=== PATIENT | female | born 1955 | race African-American/Black ===

== ENCOUNTER 2018-12-15 17:56 | Emergency (ER) | payer MEDICARE, SELFPAY ==
[2018-12-15] VITALS (9 sets, daily range): BP systolic 130–208; BP diastolic 66–113; PULSE 54–71; RESP 16–22; TEMP 36.9; O2SAT 94–99; BMI 39.4
--- NOTE | 2018-12-15 18:25 | RAD_ITS ---
STUDY: X-RAY CHEST REASON FOR EXAM: Female, 63 years old. Chest pain TECHNIQUE: Frontal view of the chest COMPARISON: X-Ray Chest June 02, 2016 FINDINGS: The lungs are clear. There are no pleural effusions. There is no pneumothorax. The heart is enlarged. The visualized osseous structures are within normal limits. RAD/Chest 1 View (Portable) IMPRESSION: No acute thoracic pathology. Cardiomegaly. Electronically Signed: Morgan Mark, at 19:00 EDT Tel , Service support ,
--- NOTE | 2018-12-15 18:25 | EKG12_ITS ---
Test Reason : CP Blood Pressure : / mmHG Vent. Rate : 060 BPM Atrial Rate : 060 BPM P-R Int : 188 ms QRS Dur : 088 ms QT Int : 426 ms P-R-T Axes : 052 -06 017 degrees QTc Int : 426 ms Normal sinus rhythm Normal ECG Confirmed by NOLAN HOGAN ([id number]), photograph editor NATANAEL PUGA ([id number]) on 12/23/2018 8:56:32 AM Referred By: PAPITO Confirmed By:NOLAN HOGAN
[2018-12-15] MEDS: Aspirin 81 MG TAB.CHEW 324 MG PO (18:31)
[2018-12-15] MEDS: Nitroglycerin SL (ED/IMG/CATH) 0.4 MG TABLET SUBLINGUAL ×3 (18:33→18:46)
[2018-12-15 18:34] LABS: Absolute Lymphocyte Count 2.72 X10^3/ul (0.83-4.51); Absolute Neutrophil Count 3.5 X10^3/uL (2.0-7.7); Basophil# 0.01 X10^3/uL; Basophil% 0.1 % (0-1); Eosinophil# 0.25 X10^3/uL; Eosinophils% 3.5 % (0-5); Hematocrit 39.1 % (37-47); Hemoglobin 13.4 g/dl (12.0-15.0); Lymphocyte # 2.72 X10^3/ul (4.0); Lymphocyte % 37.9 % (19-41); Mean Corp Hgb Conc 34.3 g/gl (32-36); Mean Corpuscular Hgb 32.3 pg (27.0-32.0); Mean Corpuscular Volume 94.2 fL (81-99); Mean Platelet Vol. 11.4 fl (6.2-12.0); Monocyte# 0.72 X10^3/uL; Neutrophil # 3.46 X10^3/uL (2.7-7.7); Neutrophil % 48.4 % (47-70); Platelet Count 171 K/mm3 (150-450); RBC Distribution Width CV 12.4 % (11.6-14.6); RBC Distribution Width SD 41.9 fl (35.1-43.9); Red Blood Count 4.15 M/mm3 (4.2-5.4); White Blood Count 7.2 K/mm3 (4.4-11.0)
--- NOTE | 2018-12-15 18:35 | ED.VISSUMM ---
- ER Visit Summary Date of Service: 12/15/18 Chief Complaint: Chest pain History of Present Illness: The patient is a 63 F who presents with chest pain that has been intermittent over the past week. Patient states her pain began this morning with light activity. Patient describes the pain as sharp and aching. Patient states the pain is over the substernal area. Patient admits to some shortness of breath with walking. Patient admits to some lightheadedness. Patient denies any nausea or vomiting. Patient denies any diaphoresis. Patient denies any palpitations. Patient has a family history of early coronary artery disease. Patient has a history of hypertension. Patient denies any other cardiac or PE risk factors. Physical Examination: Vital signs are stable except for an elevated blood pressure of 208/113. Patient is afebrile. Patient is in no acute distress. Oral mucosa is pink and moist. Neck is supple. Trachea is midline. There is no JVD noted. Heart was regular rate and rhythm. Lungs are clear and equal bilateral. Abdomen is soft. Bowel sounds are normal. There is no tenderness. There is no guarding noted. Skin is warm dry. Cranial nerves II through XII are intact. There are no focal motor or sensory deficits noted. The remaining physical exam is within normal limits. Test Results: EKG showed normal sinus rhythm with a rate of 60. There are no acute ST or T wave changes noted. CBC was normal. Basic metabolic profile showed a slightly elevated creatinine of 1.23. This was consistent with prior results. Troponin was normal. Chest x-ray does not show any acute cardiopulmonary process. D-dimer was obtained and was 1.15. CTA of the chest was obtained there is no evidence of pulmonary embolism. Emergency Department Course and Treatment: Patient was given aspirin and sublingual nitroglycerin here. Patient's blood pressure improved to 147/66. Patient is PERC negative. Patient has a HEART score of 3. Patient was advised that this is low risk for acute cardiac event. Patient was instructed to follow-up with her primary care physician in 5 to 7 days. Patient was instructed to keep a log of her blood pressures to give to her doctor when she follows up. Patient understood and was agreeable with the plan. All questions were answered. Disposition: Discharge home Impression: Chest pain This note was generated with [id number] dictation software. It may contain incorrect words, spelling, and punctuation that were not noted in review of the chart prior to signing ED Disposition - Plan for ED Patient: Disposition: Home or Assisted Living Diagnosis: Chest pain Instructions: ED Chest Pain Atypical Unkn Cause Referrals: Deyvi Olvera DO [Primary Care Provider] - 3-5 Days
--- NOTE | 2018-12-15 18:38 | ED.DCSUM_ITS ---
- ER Visit Summary Date of Service: 12/15/18 Chief Complaint: Chest pain History of Present Illness: The patient is a 63 F who presents with chest pain that has been intermittent over the past week. Patient states her pain began this morning with light activity. Patient describes the pain as sharp and ach ing. Patient states the pain is over the substernal area. Patient admits to some shortness of breath with walking. Patient admits to some lightheadedness. Patient denies any nausea or vomiting. Patient denies any diaphoresis. Patient denies any palpitations. Patient has a family history of early coronary artery disease. Patient has a history of hypertension. Patient denies any other cardi ac or PE risk factors. Physical Examination: Vital signs are stable except for an elevated blood pressure of 208/113. Patient is afebrile. Patient is in no acute distress. Oral mucosa is pink and moist. Neck is supple. Trachea is midline. There is no JVD noted. Heart was regular rate and rhythm. Lungs are clear and equal bilateral. Abdomen is soft. Bowel sounds are normal. There is no tenderness. There is no guarding noted. Skin is warm dry. Cranial nerves II through XII are intact. There are no focal motor or sensory deficits noted. The remaining physical exam is within normal limits. Test Results: EKG showed normal sinus rhythm with a rate of 60. There are no acute ST or T wave changes noted. CBC was normal. Basic metabolic profile showed a slightly elevated creatinine of 1.23. This was consistent with prior results. Troponin was normal. Chest x-ray does not show any acute cardiopulmonary process. D-dimer was obtained and was 1.15. CTA of the chest was obtained there is no evidence of pulmonary embolism. Emergency Department Course and Treatment: Patient was given aspirin and sublingual nitroglycerin here. Patient's blood pressure improved to 147/66. Patient is PERC negative. Patient has a HEART score of 3. Patient was advised that this is low risk for acute cardiac event. Patient was instructed to follow-up with her primary care physician in 5 to 7 days. Patient was instructed to keep a log of her blood pressures to give to her doctor when she follows up. Patient understood and was agreeable with the plan. All questions were answered. Disposition: Discharge home Impression: Chest pain This note was generated with [employer] dictation software. It may contain incorrect words, spelling, and punctuation that were not noted in review of the chart prior to signing ED Disposition - Plan for ED Patient: Disposition: Home or Assisted Living Diagnosis: Chest pain Instructions: ED Chest Pain Atypical Unkn Cause Referrals: Deyvi Olvera DO [Primary Care Provider] - 3-5 Days
[2018-12-15 18:47] LABS: Anion Gap 5 (5-15); BUN 22 mg/dL (7-18); BUN/Creat Ratio 17.9 RATIO (10-20); Calcium,Total 9.4 mg/dL (8.5-10.1); Chloride 106 mmol/L (98-107); Creatinine, Serum 1.23 mg/dL (0.55-1.02); EST Glomerular Filtration Rate 47 mL/min (>60); Est Glom Filt Rate - Afr Amer 57 mL/min (>60); Estimated Creatinine Clearance 51.94 ml/min; Glucose 106 mg/dL (74-106); Potassium 3.9 mmol/L (3.5-5.1); Sodium Level 139 mmol/L (136-145)
[2018-12-15 18:48] LABS: POSITIVE COUNT NO; POSITIVE DIFFERENTIAL NO; POSITIVE MORPHOLOGY NO
[2018-12-15 21:39] LABS: D-Dimer Quantitative (DVT/PE) 1.15 FEU/ug/m (0.27-0.49)
--- NOTE | 2018-12-15 21:39 | CT_ITS ---
STUDY: CTA CHEST REASON FOR EXAM: Female, 63 years old. Substernal chest pain intermittently for one week. Elevated blood pressure. Elevated d-dimer. RADIATION DOSAGE (If Supplied By Facility): CTDIvol = ( 13.85 ) mGy, DLP = ( 562.41 ) mGycm TECHNIQUE: The examination was performed with the intravenous administration of 100ML IV Isovue 370. Post-processing of the angiographic images was performed, with multiplanar reformation and 3D reconstruction. Individualized dose optimization techniques were used for this CT. COMPARISON: Chest, December 15, 2018. CTA of the chest, June 02, 2016. FINDINGS: Normal enhancement of the main pulmonary artery and right and left pulmonary arteries. Normal enhancement of the bilateral peripheral pulmonary arteries. There is no demonstrated pulmonary embolism. Normal thoracic aorta and visualized great vessels. There is no demonstrated aortic dissection. The heart is borderline enlarged. Normal pericardium. Normal mediastinum. Normal hilar regions. Normal visualized trachea and bronchi. The lungs are well expanded. Normal pulmonary parenchyma. Normal pleura. Normal chest wall structures. There are minimal degenerative changes of the lower thoracic and upper lumbar spine. There is a cyst in the upper pole left kidney. Patient is status post cholecystectomy. CT/CTA Chest W/WO Contrast IMPRESSION: 1. No evidence of pulmonary embolus. 2. No aortic dissection or aneurysm. 3. Borderline cardiomegaly. 4. No acute pulmonary disease. Electronically Signed: Ed Jeffers DO at 22:22 EDT Tel [phone], Service support ,
--- NOTE | 2018-12-15 21:39 | ED.RN ---
DR ROJSA NOTIFIED OF DDIMER RESULTS
[2018-12-15] MEDS: 0.9% Normal Saline 1,000 ML 1000 ML IV (22:32)
== END 2018-12-15 23:13 | disposition home or self-care (01) ==
PROVIDERS: Emergency Provider Emergency Medicine; Family Provider Student in an Organized Health Care Education/Training Program; PCP Student in an Organized Health Care Education/Training Program
DX: R07.9 Chest pain, unspecified (principal); E66.9 Obesity, unspecified; I10 Essential (primary) hypertension; Z82.49 Family history of ischemic heart disease and other diseases of the circulatory system; R05 Cough; M54.2 Cervicalgia; M54.9 Dorsalgia, unspecified; M79.89 Other specified soft tissue disorders; R06.02 Shortness of breath; G89.29 Other chronic pain
CPT/HCPCS: 71045; 71275; 80048; 84484; 85025; 85379; 93005; 96360; 99285; J7030; Q9967; A4216

== ENCOUNTER → 2019-04-29 10:42 | Outpatient (CLI) | payer MEDICARE, SELFPAY ==
[2018-12-15 17:57] VITALS: BMI 39.4
[2019-05-01 20:07] LABS: HCV Quant. RNA PCR HCV Not Detected IU/mL (.)
== END ==
PROVIDERS: Family Provider Student in an Organized Health Care Education/Training Program; PCP Student in an Organized Health Care Education/Training Program; Referring Provider Internal Medicine Gastroenterology; Visit Provider Internal Medicine Gastroenterology
DX: B19.20 Unspecified viral hepatitis C without hepatic coma (principal)
CPT/HCPCS: 36415; 87522

== ENCOUNTER 2020-01-09 07:42 | Observation (INO) | payer MEDICARE, SELFPAY ==
[2018-12-15 17:57] VITALS: BMI 39.4
[2020-01-09] VITALS (15 sets, daily range): BP systolic 157–228; BP diastolic 90–138; PULSE 47–91; RESP 13–18; TEMP 36.6–37.2; O2SAT 97–98; BMI 38.6; BMI 38.2
--- NOTE | 2020-01-09 07:43 | EKG12_ITS ---
Test Reason : CP Blood Pressure : / mmHG Vent. Rate : 085 BPM Atrial Rate : 085 BPM P-R Int : 182 ms QRS Dur : 094 ms QT Int : 384 ms P-R-T Axes : 043 000 016 degrees QTc Int : 456 ms Normal sinus rhythm Normal ECG Confirmed by DARIO ROSARIO, FARAZ ([id number]), editor school photograph CLAUDIA OSBORN ([id number]) on 01/10/2020 11:15:17 AM Referred By: LIONEL Confirmed By:FARAZ BISHOP MD
--- NOTE | 2020-01-09 07:43 | RAD_ITS ---
STUDY: X-RAY CHEST REASON FOR EXAM: Female, 64 years old. Chest pain TECHNIQUE: Single AP portable view of the chest. COMPARISON: Comparison is made with prior study dated December 15, 2018. FINDINGS: EKG electrodes are seen. The lungs are clear and expanded. There is no demonstrated pleural abnormality. There is mild cardiac enlargement. Normal mediastinum and herb. Normal visualized pulmonary arteries. There is atherosclerotic tortuosity of the aortic arch and descending thoracic aorta. Normal visualized thoracic spine. Normal visualized ribs, clavicles, and shoulders. There is no demonstrated abnormality of the visualized soft tissue structures of the upper abdomen. RAD/Chest 1 View (Portable) IMPRESSION: Mild cardiomegaly. Electronically Signed: Adama Zazueta, at 8:49 EDT , Service support ,
--- NOTE | 2020-01-09 07:44 | ED.VIS.GEN ---
History of Present Illness Chief Complaint: Chest Pain Informant: Patient Onset: Today Context: Sudden Onset Timing: Continuous Current Severity: Moderate Maximum Severity: Severe Narrative: The patient is a 64-year-old female with medical history significant for hypertension, fibromyalgia, and back pain that presents to the emergency department chest pain. Patient states that about 3 or 4 this morning, she was woken from sleep. She states that she had rather significant substernal heaviness and some pain in her left arm. She denies being short of breath but was mildly nauseated. Patient has no history of coronary vascular disease. She states that she has had a stress test about 4 years ago. She denies any fevers or chills. She denies any she states she is otherwise been in her normal state of health. She does not smoke. Prior similar symptoms: No Recent Illness/Hospitalization: No Past Medical History - Allergies and Home Meds Allergies/Adverse Reactions: Allergies No Known Allergies Allergy (Verified 12/15/18 18:00) Primary Care Physician: Deyvi Olvera DO [Primary Care Provider] - Prior records reviewed: Yes Past Medical History: - - Hypertension, fibromyalgia Surgical History: total knee arthroplasty Lives: With Family Smoking Status: Never smoker - Family History Maternal Family History: Reports: No pertinent history Paternal Family History: Reports: - - Her father had colon cancer and melanoma. Review of Systems General: Denies: Chills, Fever, Sweats Eyes: Denies: Visual changes - bilaterally, Diplopia ENT: Denies: Rhinorrhea, Sore throat Cardiovascular: Reports: Chest pain. Denies: Palpitations Respiratory: Reports: Dyspnea. Denies: Cough, Dyspnea on exertion Gastrointestinal: Denies: Abdominal pain, Nausea, Vomiting, Diarrhea, Melena, Hematochezia Genitourinary: Denies: Dysuria, Hematuria, Frequency Musculoskeletal: Denies: Back pain, Extremity Pain Skin: Denies: Rash, Wounds Neurological: Denies: Headache, Weakness, Numbness Physical Exam Inital Vital Signs reviewed: Yes General: Well nourished, Well developed, No Acute Distress Head: Normocephalic, Atraumatic Eyes: Perrl, EOMI ENT: Moist mucous membranes, No rhinorrhea Neck: Supple, Nontender Cardiovascular: Regular rate, Regular rhythm, No murmurs Respiratory: No distress, CTA bilaterally, Chest nontender Abdomen: Soft, Nontender, Nondistended, Normal bowel sounds Back: Nontender, Normal Inspection Extremities: Nontender, No edema Skin: Normal color, No rash Neurological: Alert, Oriented x3, Cranial nerves II-XII grossly intact, Normal Strength, Normal Sensation Psychological: Normal affect, Normal Mood Diagnostic/Tx/Re-eval Chest X-Ray - ED: 1 View, Cardiomegaly, No Infiltrates Abnormal Lab Results 01/09/20 01/09/20 01/09/20 07:50 07:50 07:50 WBC 6.0 RBC 4.26 Hgb 13.4 Hct 39.8 MCV 93.4 MCH 31.5 MCHC 33.7 RDW Std Deviation 45.0 H RDW Coeff of Moon 13.2 Plt Count 178 MPV 10.2 Immature Gran % (Auto) 0.200 Neut % (Auto) 57.9 Lymph % (Auto) 32.3 Ramsey % (Auto) 7.3 Eos % (Auto) 2.0 Baso % (Auto) 0.3 Absolute Neuts (auto) 3.5 Absolute Lymphs (auto) 1.94 Nucleated RBC % 0 Sodium 139 Potassium 3.6 Chloride 105 Carbon Dioxide 29.0 Anion Gap 5 BUN 16 Creatinine 0.98 Estim Creat Clear Calc 64.36 Est GFR (MDRD) Af Amer 74 Est GFR (MDRD) Non-Af 61 BUN/Creatinine Ratio 16.3 Glucose 117 H Calcium 9.6 Troponin I < 0.015 B-Natriuretic Peptide 55.2 - Rhythm Strip Rhythm Strip: Sinus Rhythm Rate: 90 Ectopy: None - EKG Initial EKG Interpretation: Sinus Rhythm, No Acute Injury Pattern Prior: Unchanged - Medical Decision Making The patient presents to the emergency department with chest pain that came on at rest. She describes it as squeezing into her neck and arm. She also describes being short of breath sometimes when the pain comes on. The patient was markedly hypertensive on arrival with blood pressure of 230. EKG however did not show any acute ischemic change. Patient was given sublingual nitro with some improvement of her pain, but better control of her blood pressure. Screening labs including cardiac enzymes were unremarkable. The patient did have enlarged cardiac silhouette on her chest x-ray. CTA of the chest was obtained to evaluate for acute aortic pathology. There is mild aneurysmal dilatation of 4.2 cm, but less than the surgical threshold and no evidence of dissection. The patient will be admitted at this time. Impression 1. Chest pain 2. Accelerated hypertension ED Disposition - Plan for ED Patient: Referrals: Deyvi Olvera DO [Primary Care Provider] -
[2020-01-09 07:58] LABS: Absolute Lymphocyte Count 1.94 X10^3/uL (0.83-4.51); Absolute Neutrophil Count 3.5 X10^3/uL (2.0-7.7); Basophil# 0.02 X10^3/uL; Basophil% 0.3 % (0-1); Eosinophil# 0.12 X10^3/uL; Hematocrit 39.8 % (37-47); Hemoglobin 13.4 g/dL (12.0-15.0); Lymphocyte # 1.94 X10^3/ul (4.0); Lymphocyte % 32.3 % (19-41); Mean Corp Hgb Conc 33.7 g/dL (32-36); Mean Corpuscular Hgb 31.5 pg (27.0-32.0); Mean Corpuscular Volume 93.4 fL (81-99); Mean Platelet Vol. 10.2 fl (6.2-12.0); Monocyte# 0.44 X10^3/uL; Monocyte% 7.3 % (0-10); NRBC Flagged by Analyzer 0 % (0-5); Neutrophil # 3.47 X10^3/uL (2.7-7.7); Neutrophil % 57.9 % (47-70); Platelet Count 178 K/mm3 (150-450); RBC Distribution Width CV 13.2 % (11.6-14.6); Red Blood Count 4.26 M/mm3 (4.2-5.4)
[2020-01-09] MEDS: Aspirin 81 MG TAB.CHEW 324 MG PO (07:58)
[2020-01-09] MEDS: Ondansetron 4 MG/2 ML Vial IV (07:59)
[2020-01-09] MEDS: Nitroglycerin SL (ED/IMG/CATH) 0.4 MG TABLET SUBLINGUAL ×3 (08:00→08:29)
[2020-01-09 08:18] LABS: Anion Gap 5 (5-15); BUN 16 mg/dL (7-18); BUN/Creat Ratio 16.3 RATIO (10-20); Calcium,Total 9.6 mg/dL (8.5-10.1); Chloride 105 mmol/L (98-107); Creatinine, Serum 0.98 mg/dL (0.55-1.02); EST Glomerular Filtration Rate 61 mL/min (>60); Est Glom Filt Rate - Afr Amer 74 mL/min (>60); Estimated Creatinine Clearance 64.36 ml/min; Glucose 117 mg/dL (74-106); Potassium 3.6 mmol/L (3.5-5.1); Sodium Level 139 mmol/L (136-145)
[2020-01-09] MEDS: Morphine 4 MG/ML Syringe IV (08:27)
--- NOTE | 2020-01-09 08:36 | CT_ITS ---
STUDY: CTA CHEST REASON FOR EXAM: Female, 64 years old. DISSECTION, CP, HX-GERD, HTN, SLEEP APNEA, PREV HEART CATH, HYSTER, JITENDRA, LB RADIATION DOSAGE (If Supplied By Facility): CTDIvol = ( 18.83 ) mGy, DLP = ( 836 ) mGycm TECHNIQUE: The examination was performed with the intravenous administration of IV 100mL Isovue-370. Post-processing of the angiographic images was performed, with multiplanar reformation and 3D reconstruction. Individualized dose optimization techniques were used for this CT. COMPARISON: Comparison is made with prior examination dated December 15, 2018. FINDINGS: Normal enhancement of the main pulmonary artery and right and left pulmonary arteries. Normal enhancement of the bilateral peripheral pulmonary arteries. There is no demonstrated pulmonary embolism. There is aneurysmal dilatation of the ascending aorta. The transverse diameter of the ascending aorta measures 42.4 mm''s. There is no demonstrated aortic dissection. There are calcifications of the coronary arteries. Normal mediastinum. Normal hilar regions. Normal visualized trachea and bronchi. The lungs are well expanded. Normal pulmonary parenchyma. Normal pleura. Normal chest wall structures. Normal osseous structures. Status post cholecystectomy. Stable 2.7 cm cyst in the lateral midportion of the left kidney. CT/CTA Chest W/WO Contrast IMPRESSION: No evidence of pulmonary embolism. Dilatation of the ascending thoracic aorta with a transverse dimension of 42.4 mm. Electronically Signed: Adama Zazueta, at 9:27 EDT , Service support ,
[2020-01-09 08:38] LABS: BNP,B-Type NATRIURETIC PEPTIDE 55.2 pg/mL (0-100)
--- NOTE | 2020-01-09 09:32 | HP.PCM_ITS ---
Problem List (1) Chest pain Status: Acute Qualifiers: Chest pain type: unspecified Qualified Code(s): R07.9 - Chest pain, unspecified (2) Accelerated hypertension Status: Acute (3) GERD (gastroesophageal reflux disease) Status: Chronic Qualifiers: Esophagitis presence: esophagitis presence not specified Qualified Code(s): K21.9 - Gastro-esophageal reflux disease without esophagitis (4) Fibromyalgia Status: Chronic (5) Obesity Status: Chronic Qualifiers: Obesity type: due to excess calories Obesity classification: adult class 2 (BMI 35 - 39.9) Serious obesity comorbidity presence: unspecified whether serious comorbidity present Body mass index: BMI 38.0-38.9 Qualified Code(s): E66.09 - Other obesity due to excess calories; Z68.38 - Body mass index (BMI) 38.0-38.9, adult History of Present Illness Date of Admission: 01/09/20 Chief Complaint: Chest pain The patient is a 64 y/o F w/ PMHx: HTN noted to be difficult to treat, Obesity, Obesity, Chronic pain syndrome secondary to DDD who presents to the [facility] ED on 01/09/20 with history of awakening approximately 3:30 AM on day of ED presentation with left-sided chest heaviness and tightness with radiation into the left upper extremity with associated dyspnea but no nausea, emesis or diaphoresis rated at its worst 7 out of 10 in severity with improvement following recent nitroglycerin in the ED to 5 out of 10 in severity. Patient also notes some mid sternal discomfort primarily with deep inspiratory effort. In the ED work-up included a 98.9, heart rate 91, BP initially 228/131, respiratory rate 18, 98% on room air with improvement to 171/94 following nitroglycerin administration, remarkable CBC, BMP with glucose 117 otherwise unremarkable, troponin less than 0.015, BNP 155.2, EKG with sinus rhythm with no acute evidence of ischemia, chest x-ray with mild cardiomegaly, follow-up CTPA with no evidence of pulmonary embolism, dilatation noted of the ascending thoracic aorta with transverse dimension of 42.4 mm. The ED patient administered aspirin 324 mg p.o. x1, morphine 4 mg IV x1, Zofran, sublingual nitroglycerin. Past Medical History Past Medical History (Chronic Problems): Chronic Problems GERD (gastroesophageal reflux disease) (Chronic) Fibromyalgia (Chronic) Osteoarthritis of knees, bilateral (Chronic) Angio-edema (Chronic) Obesity (Chronic) HTN (hypertension) (Chronic) Allergies No Known Allergies Allergy (Verified 12/15/18 18:00) Home Medications: Ambulatory Orders Medication Instructions Recorded Aspirin E.C. [Ecotrin] 81 mg PO DAILY@0800 #30 tablet 07/09/13 Hydrochlorothiazide [Hctz] 25 mg PO DAILY 09/10/14 Metoprolol Tartrate [Lopressor 25 mg PO DAILY 10/12/15 (beta ilda)] Losartan Potassium [Cozaar] 100 mg PO DAILY 06/02/16 Cholecalciferol (VIT D3) [Vitamin 1,000 unit PO DAILY 12/15/18 D] Oxycodone HCl/Acetaminophen 1 tab PO BID 01/09/20 [Oxycodon-Acetaminophen 7.5-325] Pregabalin 25 mg PO BID 01/09/20 hydrALAZINE [Apresoline] 50 mg PO BID 01/09/20 Surgical History: total knee arthroplasty, - - Bilateral total knee replacement, cervical neck surgery, lumbar back surgery, cholecystectomy, hysterectomy. 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 Denies: Anorexia, Chills, Fever, Malaise, Weakness, Weight Change HEENT: Denies: Head Aches, Sinus Congestion, Sinus Drainage Cardiovascular: Reports: Chest Pain, Chest Pressure, Chest Tightness, Heaviness. Denies: Light Headedness, Orthopnea, Palpitations, Syncope Respiratory: Reports: Pleuritic Pain, Shortness of breath upon exertion. Denies: Cough, Shortness of Breath, Shortness of breath at rest, Sputum production, Wheezing Gastrointestinal: Denies: Abdominal Pain, Nausea, Vomiting Genitourinary: Denies: Dysuria Musculoskeletal: Reports: Back Pain, Joint Pain. Denies: Joint Tenderness Skin: Denies: Rash, Wounds Neurological: Denies: Numbness, Tingling, Focal weakness Psychiatric: Denies: Anxiety, Depression, Homicidal Ideations, Suicidal Ideations Hematologic/ Lymphatic: Denies: Easy Bruising, Easy Bleeding VTE Information - Inpt Only VTE Present on Admission: No VTE Mechan Device Prophylaxis: SCD's VTE Pharm Prophylaxis ordered?: Yes Patient Problems: Active and Suspected Problems Accelerated hypertension (Acute) Subjective: Seated upright in the PCU bed, mildly fatigued appearance otherwise no acute distress, notes chest discomfort has been improving with ED morphine and nitroglycerin. Objective: Physical Examination: General: awake, alert, oriented x 3 and cooperative, seated upright in the PCU bed in no apparent distress, chest discomfort improving. Skin: normal color, turgor, no icterus, cyanosis. HEENT: AT/NC, EOMI, PERRLA, MMM, no carotid bruits or JVD noted; however, thickened neck makes examination difficult. Lungs: CTA bilaterally, moderate effort, moderate decrease BL bases, no rales, ronchi or wheezing. Heart: Currently mildly bradycardic with regular rhythm; no gallop, rub audible. Abdomen: soft, obese, NTTP, ND, normal BS, no HSM. Extremities: no cyanosis, clubbing, or edema. Neurological: patient awake, alert, oriented x 3; cognitive function intact; pupils equally reactive to light and accomodation; cranial nerves II-XII grossly normal, moving all 4 extremities, no focal deficits, strength moderately global decrease secondary to acute presentation. Psychiatric: affect appears mildly fatigued otherwise normal, no acute evidence of depressive or anxiety feelings. - Physical Exam Vitals/I&O's: Vital Signs Temp Pulse Resp BP Pulse Ox 98.9 F 53 L 13 171/94 H 97 01/09/20 07:43 01/09/20 08:42 01/09/20 08:42 01/09/20 08:42 01/09/20 08:42 Oxygen Delivery Method Room Air Weight: 269 lb 6.478 oz Body Mass Index (BMI) 38.6 Laboratory Results 01/09/20 07:50: WBC 6.0, RBC 4.26, Hgb 13.4, Hct 39.8, MCV 93.4, MCH 31.5, MCHC 33.7, RDW Std Deviation 45.0 H, RDW Coeff of Moon 13.2, Plt Count 178, MPV 10.2, Immature Gran % (Auto) 0.200, Neut % (Auto) 57.9, Lymph % (Auto) 32.3, Bryan % (Auto) 7.3, Eos % (Auto) 2.0, Baso % (Auto) 0.3, Absolute Neuts (auto) 3.5, Absolute Lymphs (auto) 1.94, Nucleated RBC % 0 01/09/20 07:50: Sodium 139, Potassium 3.6, Chloride 105, Carbon Dioxide 29.0, Anion Gap 5, BUN 16, Creatinine 0.98, Estim Creat Clear Calc 64.36, Est GFR (MDRD) Af Amer 74, Est GFR (MDRD) Non-Af 61, BUN/Creatinine Ratio 16.3, Glucose 117 H, Calcium 9.6, Troponin I < 0.015 01/09/20 07:50: B-Natriuretic Peptide 55.2 Assessment/Plan All Active Problems Accelerated hypertension (Acute) Muscle spasm (Acute) Radicular pain in left arm (Acute) Chest pain (Acute) The patient is a 64 y/o F w/ PMHx: HTN noted to be difficult to treat, Obesity, Obesity, Chronic pain syndrome secondary to DDD who presents to the [facility] ED on 01/09/20 with history of awakening approximately 3:30 AM on day of ED presentation with left-sided chest heaviness and tightness with radiation into the left upper extremity. 1. Chest Pain with #2: EKG in ED sinus rhythm with no acute evidence of ischemia, CXR w/ cardiomegaly with initial concern for possible enlarged aorta or therefore follow-up CTPA with no evidence of PE with dilatation of the ascending thoracic order with transverse dimension of 42.4 mm, initial trop normal x1, BMP unremarkable. Will admit to PCU, place on a monitored bed to assure no acute myocardial infarction with serial cardiac enzymes and EKGs. If cardiac enzymes and repeat EKGs remain unremarkable will pursue a.m. cardiac stress testing. Concurrently we will continue to monitor and aggressively treat patient #2, accelerated hypertension likely related. Magnesium pending, FLP in AM. ASA, NG, morphine. 2. Accelerated Hypertension: Significant BP elevations upon presentation with 228/138 with improvement to 171/94 following sublingual nitroglycerin administration with resolution of chest pain concurrently, will resume patient hydrochlorothiazide, losartan, metoprolol, hydralazine with a.m. dosing now, PRN IV hydralazine if needed. Given response may consider Imdur addition but given currently decreased to systolic blood pressure 160 following a.m. dosing of medications will defer immediate addition to avoid lowering her pressure too quickly. 3. Incidentally noted Aneurysmal dilatation of the ascending aorta: CTPA with noted aneurysmal dilatation of the ascending aorta w/ transverse diameter of the ascending aorta measures 42.4 mm, no necessity for urgent evaluation and no evidence of dissection, will refer patient to vascular surgery upon discharge. 4. Chronic pain syndrome secondary to DDD: We will continue patient home chronic narcotic therapy and Lyrica with PRN IV and oral additional regimen as noted secondary to #1. Patient notes upcoming back surgery planned and has already had 2 prior on the cervical and lumbar region. 5. Obesity: Weight loss and lifestyle changes encouraged. 6. GERD: We will maintain on famotidine. 7. DVT prophylaxis: SCDs, Lovenox. OBSV E&M: [id number] Initial observation care L3
--- NOTE | 2020-01-09 09:33 | NURSING ---
DR SANTA FOR DR FLOWERS
--- NOTE | 2020-01-09 09:42 | ED.RN ---
family and pt aware that visitors not permitted to floors as of yet. pt still having same amt of pressure still, like dont feel like can take a full breath
--- NOTE | 2020-01-09 09:42 | NURSING ---
105 CP ARINA OBS
--- NOTE | 2020-01-09 10:03 | EKG12_ITS ---
Test Reason : ADMISSION: CP Blood Pressure : / mmHG Vent. Rate : 047 BPM Atrial Rate : 047 BPM P-R Int : 180 ms QRS Dur : 088 ms QT Int : 468 ms P-R-T Axes : 040 004 007 degrees QTc Int : 414 ms Sinus bradycardia Otherwise normal ECG Confirmed by DARIO ROSARIO, FARAZ ([id number]), editor managing director NATANAEL PUGA ([id number]) on 01/11/2020 1:27:00 PM Referred By: ARINA Confirmed By:FARAZ BISHOP MD
[2020-01-09 11:03] LABS: Hemoglobin A1c 5.6 % (3.8-5.6)
--- NOTE | 2020-01-09 11:27 | CASEMGMT ---
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 Nancy ARNETT MSW
[2020-01-09] MEDS: oxyCODONE 5 MG Tablet PO (11:46)
--- NOTE | 2020-01-09 14:40 | STRESSREP ---
Stress Test Report Pharmacologic myocardial perfusion stress test. 64-year-old lady with a history of accelerated hypertension and chest pain. Stress protocol: Resting EKG demonstrates normal sinus rhythm with a rate of 73 bpm normal intervals are noted. 0.4 mg of regadenoson was infused per usual protocol followed by rapid intravenous saline flush injection continuous electronic device monitor was performed. The maximum heart rate attained was 78 bpm which was 49% of maximum predicted heart rate the maximum workload was 1 metabolic equivalent. At rest there were no ST or T wave changes noted suggest abnormal flow reserve at peak infusion. At peak infusion nonspecific ST-T wave changes were noted with no meet the criteria for ischemia. The resting blood pressure was 140/100 with a peak blood pressure 152/104 suggesting diastolic hypertension. Myocardial perfusion protocol. 15.0 mCi of technetium 99m sestamibi was injected at rest. 0.4 mg of regadenoson was infused per usual protocol. At peak infusion 45.0 mCi of technetium 99m sestamibi was injected stress images were obtained stress and rest images were reconstructed and compared in the short axis vertical long horizontal long axis. Gated images were also obtained Perfusion SPECT analysis: Review of the stress images demonstrate normal uptake of tracer noted in all areas of the myocardium the resting images similar demonstrate normal uptake of tracer noted in all areas of the myocardium. No areas of reversibility are noted suggest ischemia no previous infarct is noted. There is mild apical thinning noted. Gated SPECT analysis: The gated ejection fraction is 61%. Conclusion: Pharmacologic myocardial perfusion stress test with no ischemia noted. Resting Hypertension present.
[2020-01-09] MEDS: Enoxaparin 40 MG/0.4 ML Syringe SC (14:51)
[2020-01-09] MEDS: hydroCHLOROthiazide 25 MG Tablet PO (14:51)
[2020-01-09] MEDS: Famotidine 20 MG Tablet PO ×2 (14:51→21:03)
[2020-01-09] MEDS: hydrALAZINE 50 MG Tablet PO ×2 (14:51→21:03)
[2020-01-09] MEDS: Losartan Potassium 100 MG Tablet PO (14:51)
[2020-01-09] MEDS: Pregabalin 25 MG Capsule PO ×2 (15:11→21:03)
[2020-01-09] MEDS: Morphine 2 MG/ML Syringe IV (18:18)
[2020-01-09] MEDS: 0.9% Saline Lock 10 ML Syringe IV (18:18)
[2020-01-10 02:59] VITALS: PULSE 75
[2020-01-10 05:08] LABS: Absolute Neutrophil Count 3.5 X10^3/uL (2.0-7.7); Basophil# 0.03 X10^3/uL; Basophil% 0.5 % (0-1); Eosinophil# 0.19 X10^3/uL; Eosinophils% 3.1 % (0-5); Hemoglobin 12.1 g/dL (12.0-15.0); Lymphocyte % 29.5 % (19-41); Mean Corp Hgb Conc 32.7 g/dL (32-36); Mean Corpuscular Hgb 31.2 pg (27.0-32.0); Mean Corpuscular Volume 95.4 fL (81-99); Mean Platelet Vol. 10.3 fl (6.2-12.0); Monocyte# 0.57 X10^3/uL; Monocyte% 9.3 % (0-10); NRBC Flagged by Analyzer 0 % (0-5); Neutrophil % 57.3 % (47-70); Platelet Count 164 K/mm3 (150-450); RBC Distribution Width CV 13.3 % (11.6-14.6); RBC Distribution Width SD 46.7 fl (35.1-43.9); Red Blood Count 3.88 M/mm3 (4.2-5.4); White Blood Count 6.1 K/mm3 (4.4-11.0)
[2020-01-10 05:20] VITALS: BP 159/99; PULSE 72; RESP 16; TEMP 36.9; O2SAT 97
[2020-01-10 05:30] LABS: Anion Gap 6 (5-15); BUN 16 mg/dL (7-18); BUN/Creat Ratio 14.8 RATIO (10-20); Calcium,Total 9.1 mg/dL (8.5-10.1); Chloride 101 mmol/L (98-107); Cholesterol 130 mg/dL (200); Creatinine, Serum 1.08 mg/dL (0.55-1.02); EST Glomerular Filtration Rate 55 mL/min (>60); Est Glom Filt Rate - Afr Amer 66 mL/min (>60); Glucose 122 mg/dL (74-106); High Density Lipoprotein 36 mg/dL; Potassium 3.8 mmol/L (3.5-5.1); Sodium Level 137 mmol/L (136-145); Triglycerides 100 mg/dL; Very Low Density Lipoprotein 20 mg/dL (5-40)
[2020-01-10] MEDS: Isosorbide Mononitrate 30 MG Tablet PO (05:45)
--- NOTE | 2020-01-10 05:55 | EKG12_ITS ---
Test Reason : AM EKG Blood Pressure : / mmHG Vent. Rate : 070 BPM Atrial Rate : 070 BPM P-R Int : 190 ms QRS Dur : 090 ms QT Int : 414 ms P-R-T Axes : 055 -05 023 degrees QTc Int : 447 ms Normal sinus rhythm Normal ECG Confirmed by DARIO ROSARIO, FARAZ ([id number]), food expeditor NATANAEL PUGA ([id number]) on 01/11/2020 1:11:39 PM Referred By: DR SANTA Confirmed By:FARAZ BISHOP MD
[2020-01-10 06:59] VITALS: PULSE 60
[2020-01-10 08:50] VITALS: BP 156/86; PULSE 79; RESP 18; TEMP 37; O2SAT 95
[2020-01-10] MEDS: Pregabalin 25 MG Capsule PO (08:50)
[2020-01-10] MEDS: Metoprolol(XL)Succ 100 MG Tablet PO (08:50)
[2020-01-10] MEDS: oxyCODONE 5 MG Tablet PO (08:50)
[2020-01-10 08:51] VITALS: PULSE 79
[2020-01-10] MEDS: Famotidine 20 MG Tablet PO (08:51)
[2020-01-10] MEDS: Losartan Potassium 100 MG Tablet PO (08:51)
[2020-01-10] MEDS: Enoxaparin 40 MG/0.4 ML Syringe SC (08:51)
[2020-01-10] MEDS: hydrALAZINE 50 MG Tablet PO (08:51)
[2020-01-10] MEDS: hydroCHLOROthiazide 25 MG Tablet PO (08:51)
[2020-01-10] MEDS: Aspirin E.C. 81 MG Tablet PO (08:51)
--- NOTE | 2020-01-10 09:58 | DCINST_ITS ---
- Discharge Diagnoses Current Active Problems: Current Active and Chronic Problems 1. Chest Pain, Suspected secondary to #2 and #6 as well as musculoskeletal etiology 2. Accelerated Hypertension 3. Incidentally noted Aneurysmal dilatation of the ascending aorta 4. Chronic pain syndrome secondary to DDD 5. Obesity 6. GERD You will use the following diet at home:: Cardiac Your food should be the consistency of: Regular Your liquids should be the consistency of: Regular/Thin Discharge Activity: Return to Normal Activity May resume sexual activity in: No Restrictions Weight Bearing Status: Weight bearing as tolerated Call your doctor if you observe: Fever of 101 or Higher, Inability to urinate, Inability to have a bowel movement, Shortness of breath, Dizziness, Fainting spells, Chest pain, Uncontrolled pain Instructions: ED Chest Pain NonCardiac, Low-Salt Choices, What Is High Blood Pressure? (JNC-7), High Blood Pressure (Hypertension), Taking Blood Pressure Medications Additional Instructions: The chest pain you experienced does not appear to be secondary to an underlying cardiac event but more likely associated with uncontrolled blood pressure as well as possibly musculoskeletal etiology and even potentially reflux. The stress test is negative and your heart squeezed normally. The telemetry monitor you wore showed no problem with the rhythm of your heart. Additionally, the cardiac enzyme series performed remained normal. Sometimes chest pain can come from a problem with the muscles or skeleton and/or associated with straining or doing some strenuous activity you do not normally perform. Generally Aleve or Motrin will help allieviate this discomfort if these medications are appropriate for you to take. Chest pain can also be associated with anxiety and with this you frequently have racing heart, trouble sleeping and irritability. It can also come from gastroesophageal reflux disease or heartburn. People who smoke experience increased heartburn because nicotine decreases the pressure in the lower esophageal sphincter and causes reflux. This type of discomfort is well treated with drinking a large glass of cold water which strips the acid out of the esophagus or taking Mylanta, Maalox or Pepto- Bismol. Other foods to avoid if you have reflux are chocolate, peppermint and calcium containing products such as Tums. Given your blood pressure was initially significantly elevated upon presentation as noted this is felt likely etiology for your chest discomfort especially given your improvement with blood pressure normalization. Your hydralazine was increased to 3 times daily but further adjustments may need to be made. Given per your own report you have had difficult to control blood pressure we have recommended that you follow-up with nephrology to further adjust and monitor as needed. During admission it was incidentally noted that you had mild enlargement of a section of your aorta therefore we have set you up to follow with a vascular surgeon who will monitor this outpatient. Allergies/Adverse Reactions: Allergies No Known Allergies Allergy (Verified 12/15/18 18:00) Medications to take at Discharge Aspirin E.C. [Ecotrin] 81 mg PO DAILY@0800 #30 tablet 07/09/13 Hydrochlorothiazide [Hctz] 25 mg PO DAILY 09/10/14 Losartan Potassium [Cozaar] 100 mg PO DAILY 06/02/16 Cholecalciferol (VIT D3) [Vitamin D3] 1,000 unit PO DAILY 12/15/18 Metoprolol Succinate 100 mg PO 01/09/20 Oxycodone HCl/Acetaminophen [Oxycodon-Acetaminophen 7.5-325] 1 tab PO BID 01/09/20 Pregabalin 25 mg PO BID 01/09/20 Famotidine [Pepcid] 20 mg PO BID #60 tab 01/10/20 hydrALAZINE [Apresoline] 50 mg PO TID #90 tab 01/10/20 The following prescriptions were given: hydrALAZINE [Apresoline] 50 mg PO TID #90 tab Transmission Status: Pending to [id number] Famotidine [Pepcid] 20 mg PO BID #60 tab Transmission Status: [id number] Primary Care Physician: Deyvi Olvera DO [Primary Care Provider] - Please follow up with your Primary Care Physician in: Follow-up within 3-5 days to review admission. Test Results: Test results from this visit will be discussed in further detail at your follow- up appointment, if applicable. Please Follow Up With: Laura Mendenhall DO When: Please follow-up for difficult to control hypertension evaluation. Please Follow Up With: Adolph Comer MD When: Please establish at next open visit to follow aortic dilation. Proposed Discharge Date: 01/10/20
--- NOTE | 2020-01-10 10:11 | PCM.DC.SUM ---
Discharge Date and Diagnosis Date of Admission: 01/09/20 Date of Discharge: 01/10/20 - Primary Discharge Diagnosis Acute Problems: Active Problems 1. Chest Pain, Suspected secondary to #2 and #6 as well as musculoskeletal etiology 2. Accelerated Hypertension 3. Incidentally noted Aneurysmal dilatation of the ascending aorta 4. Chronic pain syndrome secondary to DDD 5. Obesity 6. GERD - Secondary Discharge Diagnosis Chronic Problems: Chronic Problems GERD (gastroesophageal reflux disease) (Chronic) Fibromyalgia (Chronic) Osteoarthritis of knees, bilateral (Chronic) Angio-edema (Chronic) Obesity (Chronic) HTN (hypertension) (Chronic) Hospital Course and Treatment Operations: None Procedures: EKG, Stress test Summary of Care Provided: The patient is a 64 y/o F w/ PMHx: HTN noted to be difficult to treat, Obesity, Obesity, Chronic pain syndrome secondary to DDD who presented to the [facility] ED on 01/09/20 with history of awakening approximately 3:30 AM on day of ED presentation with left-sided chest heaviness and tightness with radiation into the left upper extremity with associated dyspnea but no nausea, emesis or diaphoresis rated at its worst 7 out of 10 in severity with improvement following nitroglycerin. In the ED work-up included a 98.9, heart rate 91, BP initially 228/131, respiratory rate 18, 98% on room air with improvement to 171/94 following nitroglycerin administration, remarkable CBC, BMP with glucose 117 otherwise unremarkable, troponin less than 0.015, BNP 155.2, EKG with sinus rhythm with no acute evidence of ischemia, chest x-ray with mild cardiomegaly, follow-up CTPA with no evidence of pulmonary embolism, dilatation noted of the ascending thoracic aorta with transverse dimension of 42.4 mm. The ED patient administered aspirin 324 mg p.o. x1, morphine 4 mg IV x1, Zofran, sublingual nitroglycerin. The patient was admitted to PCU, maintained on cardiac telemetry, serial cardiac enzymes were obtained as well as serial EKGs which remained unremarkable. Patient underwent cardiac stress testing which was noted to be negative for inducible ischemia. FLP was obtained during admission with triglycerides 100, total cholesterol 130, LDL 74, VLDL 20, HDL 36. Given patient's significant blood pressure upon admission suspected likely exhilarated hypertension as well as musculoskeletal etiology and GERD as cause for patient's presentation with improvement and no cardiac events on telemetry overnight therefore patient discharged home with mild adjustments to her home BP regimen with recommendation for follow-up with primary care physician as well as establishment with nephrology given difficult to control hypertension on several agents as well as follow-up with vascular surgery secondary to incidental findings on CTPA of noted dilation of the ascending thoracic aorta for continued outpatient follow-up. DAY OF DISCHARGE PROGRESS NOTE: Subjective: Patient without acute event overnight per self and nursing report. Patient denies fever, chills, nausea, emesis, abdominal pain, recurrent or worsened chest pain or dyspnea. Patient agreeable to discharge to home. Patient will be discharged with follow-up with primary care physician as well as follow-up with nephrology and vascular surgery. Objective: T 90.6, heart rate 79, BP 156/86, respiratory rate 18, 95% room air. Physical Examination: General: awake, alert, oriented x 3 and cooperative, seated upright in the PCU bed in no apparent distress. Skin: normal color, turgor, no icterus, cyanosis. HEENT: AT/NC, EOMI, PERRLA, MMM. Lungs: CTA bilaterally, moderate effort, moderate decrease BL bases, no rales, ronchi or wheezing. Heart: Regular rate and regular rhythm; no gallop, rub audible. Abdomen: soft, obese, NTTP, ND, normal BS. Extremities: no cyanosis, clubbing, or edema. Neurological: patient awake, alert, oriented x 3; cognitive function intact; pupils equally reactive to light and accomodation; cranial nerves II-XII grossly normal, moving all 4 extremities, no focal deficits, strength normalized, preserved. Psychiatric: affect appears improved, less fatigued, no acute evidence of depressive or anxiety feelings. Assessment and Plan: Please see hospital summary above. - Physical Exam Vitals/I&O's: Vital Signs Temp Pulse Resp BP Pulse Ox 98.6 F 79 18 156/86 H 95 01/10/20 08:50 01/10/20 08:51 01/10/20 08:50 01/10/20 08:50 01/10/20 08:50 Oxygen Delivery Method Room Air Weight: 266 lb 1.6 oz Body Mass Index (BMI) 38.2 Intake and Output for Last 24 Hours 01/08/20 01/09/20 01/10/20 23:59 23:59 23:59 Intake Total 760 / 760 Balance 760 / 760 Laboratory Results 01/09/20 07:50: Magnesium 2.0 01/09/20 10:40: Troponin I < 0.015 01/09/20 10:40: Hemoglobin A1c 5.6 01/09/20 14:32: Troponin I < 0.015 01/10/20 04:58: Sodium 137, Potassium 3.8, Chloride 101, Carbon Dioxide 30.0, Anion Gap 6, BUN 16, Creatinine 1.08 H, Estim Creat Clear Calc 58.40, Est GFR (MDRD) Af Amer 66, Est GFR (MDRD) Non-Af 55 L, BUN/Creatinine Ratio 14.8, Glucose 122 H, Calcium 9.1, Triglycerides 100, Cholesterol 130, LDL Cholesterol 74, VLDL Cholesterol 20, HDL Cholesterol 36 L 01/10/20 04:58: WBC 6.1, RBC 3.88 L, Hgb 12.1, Hct 37.0, MCV 95.4, MCH 31.2, MCHC 32.7, RDW Std Deviation 46.7 H, RDW Coeff of Moon 13.3, Plt Count 164, MPV 10.3, Immature Gran % (Auto) 0.300, Neut % (Auto) 57.3, Lymph % (Auto) 29.5, Conway % (Auto) 9.3, Eos % (Auto) 3.1, Baso % (Auto) 0.5, Absolute Neuts (auto) 3.5, Absolute Lymphs (auto) 1.80, Nucleated RBC % 0 Current Medications Acetaminophen (Tylenol) 650 mg PO Q6H PRN PRN PRN Reason: Pain Score 1-10/Temp > 100.7 F Al Hydroxide/Mg Hydroxide (Mylanta Ii) 30 ml PO Q6H PRN PRN PRN Reason: Gastric Burning Albuterol Sulfate (Ventolin Aerosols) 2.5 mg INHALATION Q2H PRN PRN PRN Reason: Dyspnea, wheezing Aspirin (Ecotrin) 81 mg PO DAILY@0800 [facility] Last Admin: 01/10/20 08:51 Dose: 81 mg Documented by: Dextrose (D50w Syringe) 0 gm IV X1 PRN; Protocol PRN Reason: Hypoglycemia Enoxaparin Sodium (Lovenox) 40 mg SC DAILY [facility] Last Admin: 01/10/20 08:51 Dose: 40 mg Documented by: Famotidine (Pepcid) 20 mg PO BID [facility] Last Admin: 01/10/20 08:51 Dose: 20 mg Documented by: Glucagon () 1 mg IM .X1 PRN PRN Reason: Hypoglycemia Guaifenesin (Robitussin) 20 ml PO Q4H PRN PRN PRN Reason: COUGH Hydralazine HCl (Apresoline) 50 mg PO BID [facility] Last Admin: 01/10/20 08:51 Dose: 50 mg Documented by: Hydralazine HCl (Apresoline Iv) 10 mg IV Q4H PRN PRN PRN Reason: SBP > 160 Hydrochlorothiazide (Hctz) 25 mg PO DAILY [facility] Last Admin: 01/10/20 08:51 Dose: 25 mg Documented by: Sodium Chloride () 250 mls @ 15 mls/hr IV .[id number] PRN PRN Reason: Saline Flush Sodium Chloride () 250 mls @ 15 mls/hr IV .[id number] PRN PRN Reason: Additional IVPB Infusion Isosorbide Mononitrate (Imdur) 30 mg PO DAILY [facility] Last Admin: 01/10/20 05:45 Dose: 30 mg Documented by: Losartan Potassium (Cozaar) 100 mg PO DAILY [facility] Last Admin: 01/10/20 08:51 Dose: 100 mg Documented by: Magnesium Hydroxide (Milk Of Magnesia) 30 ml PO DAILY PRN PRN PRN Reason: Constipation Metoprolol Succinate (Toprol Xl (Beta Weston)) 100 mg PO DAILY [facility] Last Admin: 01/10/20 08:50 Dose: 100 mg Documented by: Morphine Sulfate () 2 mg IV Q3H PRN PRN PRN Reason: Pain Score 6-10/10 Last Admin: 01/09/20 18:18 Dose: 2 mg Documented by: Nitroglycerin (Nitrostat) 0.4 mg SUBLINGUAL Q5M PRN PRN Reason: CARDIAC/CHEST PAIN Ondansetron HCl (Zofran) 4 mg IV Q8H PRN PRN PRN Reason: NAUSEA/VOMITING Oxycodone HCl (Oxyir) 5 mg PO Q4H PRN PRN PRN Reason: Pain Score 4-5/10 Oxycodone HCl (Oxyir) 5 mg PO BID [facility] Last Admin: 01/10/20 08:50 Dose: 5 mg Documented by: Pregabalin (Lyrica) 25 mg PO BID [facility] Last Admin: 01/10/20 08:50 Dose: 25 mg Documented by: Prochlorperazine Edisylate (Compazine Iv) 5 mg IV Q4H PRN PRN PRN Reason: Breakthrough Nausea/Vomiting Psyllium Hydrophilic Mucilloid (Metamucil) 1 packet PO DAILY PRN PRN PRN Reason: Constipation Senna/Docusate Sodium (Senokot-S, Lucia-Colace) 2 tablet PO BID PRN PRN PRN Reason: Constipation Sodium Chloride () 10 - 40 ml IV UD PRN PRN Reason: SALINE FLUSH Last Admin: 01/09/20 18:18 Dose: 10 ml Documented by: Temazepam (Restoril) 15 mg PO QHS PRN PRN PRN Reason: INSOMNIA Throat Lozenges (Cepacol Sore Throat Lozenge) 1 lozenge MUCOUS MEM Q2H PRN PRN PRN Reason: SORE THROAT Discharge Activity: Return to Normal Activity May resume sexual activity in: No Restrictions Weight Bearing Status: Weight bearing as tolerated Call your doctor if you observe: Fever of 101 or Higher, Inability to urinate, Inability to have a bowel movement, Shortness of breath, Dizziness, Fainting spells, Chest pain, Uncontrolled pain Home Medications: Medications to take at Discharge Aspirin E.C. [Ecotrin] 81 mg PO DAILY@0800 #30 tablet 07/09/13 Hydrochlorothiazide [Hctz] 25 mg PO DAILY 09/10/14 Losartan Potassium [Cozaar] 100 mg PO DAILY 06/02/16 Cholecalciferol (VIT D3) [Vitamin D3] 1,000 unit PO DAILY 12/15/18 Metoprolol Succinate 100 mg PO DAILY 01/09/20 Oxycodone HCl/Acetaminophen [Oxycodon-Acetaminophen 7.5-325] 1 tab PO BID 01/09/20 Pregabalin 25 mg PO BID 01/09/20 Famotidine [Pepcid] 20 mg PO BID #60 tab 01/10/20 hydrALAZINE [Apresoline] 50 mg PO TID #90 tab 01/10/20 Following Prescrptions Were Given to Patient: hydrALAZINE [Apresoline] 50 mg PO TID #90 tab Transmission Status: Received by [id number] Famotidine [Pepcid] 20 mg PO BID #60 tab Transmission Status: Received by [id number] Primary Care Physician: Deyvi Olvera DO [Primary Care Provider] - Please follow up with your Primary Care Physician in: Follow-up within 3-5 days to review admission. Please Follow Up With: Laura Mendenhall DO When: Please follow-up for difficult to control hypertension evaluation. Please Follow Up With: Adolph Comer MD When: Please establish at next open visit to follow aortic dilation. Patient Instructions: Low-Salt Choices, What Is High Blood Pressure? (JNC-7), High Blood Pressure (Hypertension), Taking Blood Pressure Medications, ED Chest Pain NonCardiac Disposition: Home Minutes spent on discharge:: 35 Patient Condition:: Fair Medical Necessity - Tobacco Use Smoking Status: Never smoker Tobacco Use: Non-smoker Meaningful Use Info Meaningful Use Diagnoses (Choose all that apply): None applicable OBSV E&M: 02506 Observation care discharge
[2020-01-10 10:25] VITALS: BP 157/93; PULSE 70
--- NOTE | 2020-01-10 10:26 | CASEMGMT ---
This RN CM to room with REN form at this time, explanation done-pt voices understanding and signs REN form at this time. Original to chart and copy to pt at this time. Pt has IP vs OBS booklet at bedside at this time. Pt voices no further questions/concerns/needs at this time. [place] ALEXANDRO GRANADO
--- NOTE | 2020-01-10 10:49 | PHA.DC.MC ---
Pharmacy Service has performed discharge medication reconciliation and counseling for this patient. 1. FAMOTIDINE 20MG PO BID 2. HYDRALAZINE 50MG PO TID The patient's discharge medication list was reviewed for discrepancies and discrepancies were resolved. This [facility] spoke to nurse Coty. Yesterday the metoprolol succinate 100mg was entered but did not have a frequency. Coty entered the frequency for daily as per patient's medication bottle. Home Medications Aspirin E.C. [Ecotrin] 81 mg PO DAILY@0800 #30 tablet 07/09/13 Hydrochlorothiazide [Hctz] 25 mg PO DAILY 09/10/14 Losartan Potassium [Cozaar] 100 mg PO DAILY 06/02/16 Cholecalciferol (VIT D3) [Vitamin D3] 1,000 unit PO DAILY 12/15/18 Metoprolol Succinate 100 mg PO DAILY 01/09/20 Oxycodone HCl/Acetaminophen [Oxycodon-Acetaminophen 7.5-325] 1 tab PO BID 01/09/20 Pregabalin 25 mg PO BID 01/09/20 Famotidine [Pepcid] 20 mg PO BID #60 tab 01/10/20 hydrALAZINE [Apresoline] 50 mg PO TID #90 tab 01/10/20 The patient was counseled on the following discharge medications and changes in medications for homegoing were reviewed. The Reason for Use, instructions for use, and potential side effects were reviewed for all new medications. The patient's questions regarding all of their medications were answered. The patient was able to verbally demonstrate an understanding of their discharge medications.
== END 2020-01-10 10:05 | disposition home or self-care (01) ==
LOC: ED 08:21 → PCU 10:12
PROVIDERS: Admitting Provider Family Medicine; Emergency Provider Emergency Medicine; PCP Student in an Organized Health Care Education/Training Program; Visit Provider Family Medicine
DX: R07.89 Other chest pain (principal); I10 Essential (primary) hypertension; K21.9 Gastro-esophageal reflux disease without esophagitis; E66.9 Obesity, unspecified; G89.4 Chronic pain syndrome; I71.2 Thoracic aortic aneurysm, without rupture; M79.7 Fibromyalgia; M79.602 Pain in left arm; R06.02 Shortness of breath; M17.0 Bilateral primary osteoarthritis of knee; Z68.38 Body mass index [BMI] 38.0-38.9, adult; Z79.899 Other long term (current) drug therapy; Z79.82 Long term (current) use of aspirin; R00.1 Bradycardia, unspecified
CPT/HCPCS: 36415; 71045; 71275; 78452; 80048; 80061; 83036; 83735; 83880; 84484; 85025; 93005; 93017; 96372; 96374; 96375; 96376; 99218; 99285; A9500; Q9967; A4216; G0378; J2405; J2785

== ENCOUNTER 2020-06-17 19:25 | Inpatient (IN) | payer MEDICARE, SELFPAY ==
[2020-01-09 10:03] VITALS: BMI 38.2
[2020-06-17] VITALS (7 sets, daily range): BP systolic 135–150; BP diastolic 96–106; PULSE 87–113; RESP 18–26; TEMP 37.7–38.3; O2SAT 92–96; BMI 34.2; BMI 34.3
--- NOTE | 2020-06-17 19:51 | RAD_ITS ---
STUDY: X-RAY CHEST REASON FOR EXAM: Female, 64 years old. Shortness of breath, cough, chest pain. TECHNIQUE: Single frontal view of the chest. COMPARISON: 01/09/2020 FINDINGS: There are patchy opacities within the left mid and lower lung and right lung base. Normal size heart. Normal mediastinum and herb. Normal visualized pulmonary arteries. Normal visualized aortic arch and descending thoracic aorta. Normal visualized thoracic spine. Normal visualized ribs, clavicles, and shoulders. There is no demonstrated abnormality of the visualized soft tissue structures of the upper abdomen. RAD/Chest 1 View (Portable) IMPRESSION: Bilateral patchy opacities concerning for multifocal pneumonia. Electronically Signed: Brenda Plunkett MD at 21:02 EST Tel , Service support ,
--- NOTE | 2020-06-17 20:04 | ED.DCSUM_ITS ---
- ER Visit Summary Date of Service: 06/17/20 Chief Complaint: Shortness of breath History of Present Illness: The patient is a 64 F who presents with shortness of breath that has been getting worse over the past 4 days. Patient states it is gradually gotten worse. Patient states 3 days ago she was exposed to her daughter who tested positive for Covid. Patient states her symptoms started before her exposure. Patient states her breathing is worse with any exertion. Patient admits to a cough with occasional yellow sputum. Patient also admits to mild sore throat. Patient states her temperature at home was 102. Patient states her pain is all the way across her chest and is aching. Patient does a dmit to a loss of taste. Physical Examination: Vital signs are stable except for tachycardia of 113. Patient does have a temperature of 100.9 here. Patient is in no acute distress. Oral mucosa is pink and moist. Neck is supple. Trachea is midline. There is no JVD. Heart was regular rate and rhythm. Lungs were slightly diminished bilaterally. There is good respiratory effort noted. Abdomen is soft. Bowel sounds are normal. There is no tenderness. Cranial nerves II through XII are intact. There are no focal motor or sensory deficits. Test Results: EKG was obtained. On my interpretation, there is is a normal sinus rhythm with a rate of 100. There are no acute ST or T wave changes. Portable 1 view chest x-ray was obtained. On my interpretation, lung dean show bilateral patchy infiltrates. There is normal cardiac silhouette. Bony thorax is normal. There is no acute process noted. Radiologist also interpreted the x-ray and agrees. CBC shows a white blood cell count of 3.4. Comprehensive metabolic profile showed a slightly elevated creatinine of 1.21. Glucose was 108. AST was slightly elevated at 79 and ALT was also slightly elevated at 67. COVID-19 test was obtained and is pending. Emergency Department Course and Treatment: Patient was given an albuterol inhaler here. Patient ambulated in the emergency department. Patient was feeling weak and had to stop several times while ambulating to the bathroom. Patient's pulse oximeter dropped to 91% with ambulation. Patient remained tachycardic with a heart rate of 115. Patient was given a dose of Decadron. Case was discussed with the hospitalist. She will admit the patient to her service. Patient understood and was agreeable with the plan. All questions were answered. Disposition: Admit to hospital Impression: 1. Sepsis 2. Suspected COVID-19 3. Tachycardia This note was generated with [employer] dictation software. It may contain incorrect words, spelling, and punctuation that were not noted in review of the chart prior to signing ED Disposition - Plan for ED Patient: Disposition: Acute Care Hospital [facility] Diagnosis: General weakness, Suspected COVID-19 virus infection Referrals: Deyvi Olvera DO [Primary Care Provider] -
[2020-06-17 20:26] LABS: Absolute Lymphocyte Count 1.19 X10^3/uL (0.83-4.51); Absolute Neutrophil Count 1.8 X10^3/uL (2.0-7.7); Basophil# 0.01 X10^3/uL; Basophil% 0.3 % (0-1); Hematocrit 38.7 % (37-47); Hemoglobin 13.2 g/dL (12.0-15.0); Lymphocyte # 1.19 X10^3/ul (4.0); Lymphocyte % 35.1 % (19-41); Mean Corp Hgb Conc 34.1 g/dL (32-36); Mean Corpuscular Hgb 31.8 pg (27.0-32.0); Mean Corpuscular Volume 93.3 fL (81-99); Mean Platelet Vol. 11.1 fl (6.2-12.0); Monocyte# 0.36 X10^3/uL; Monocyte% 10.6 % (0-10); NRBC Flagged by Analyzer 0 % (0-5); Neutrophil # 1.82 X10^3/uL (2.7-7.7); Neutrophil % 53.7 % (47-70); Platelet Count 125 K/mm3 (150-450); RBC Distribution Width SD 44.7 fl (35.1-43.9); Red Blood Count 4.15 M/mm3 (4.2-5.4); White Blood Count 3.4 K/mm3 (4.4-11.0)
[2020-06-17] MEDS: Acetaminophen 500 MG Tablet 1000 MG PO (20:31)
[2020-06-17 20:42] LABS: ALB/GLOB Ratio 0.6 RATIO (0.9-2.4); AST(SGOT) 79 U/L (15-37); Alanine Aminotransfer ALT/SGPT 67 U/L (13-56); Albumin, Serum 3.1 g/dL (3.2-5.0); Alkaline Phosphatase 53 U/L (45-117); Anion Gap 6 (5-15); BUN 14 mg/dL (7-18); BUN/Creat Ratio 11.6 RATIO (10-20); Calcium,Total 8.8 mg/dL (8.5-10.1); Chloride 101 mmol/L (98-107); Creatinine, Serum 1.21 mg/dL (0.55-1.02); EST Glomerular Filtration Rate 48 mL/min (>60); Est Glom Filt Rate - Afr Amer 58 mL/min (>60); Estimated Creatinine Clearance 52.13 ml/min; Globulin 5.4 g/dL (2.2-4.2); Glucose 108 mg/dL (74-106); Protein, Total 8.5 g/dL (6.4-8.2); Sodium Level 137 mmol/L (136-145)
--- NOTE | 2020-06-17 21:25 | ED.RN ---
AMBULATED PT WITH PULSE OX. PT HAD TO STOP MULTIPLE TIMES FOR DIZZINESS. PTS HR WENT FROM 115 TO 124. PT DID NOT TOLERATE AMBULATION WELL. PULSE OX REMAINED STEADY 91-92%. OCCASIONALLY WOULD GO TO 94. PHYSICIAN NOTIFIED
--- NOTE | 2020-06-17 21:53 | HP.PCM_ITS ---
Problem List (1) Acute sepsis Status: Acute (2) Pneumonia due to COVID-19 virus Status: Acute (3) Hypoxia Status: Acute (4) Hypertension Status: Chronic Qualifiers: Hypertension type: essential hypertension Qualified Code(s): I10 - Essential (primary) hypertension (5) JOANNA (obstructive sleep apnea) Status: Chronic (6) Chronic back pain Status: Chronic Qualifiers: Back pain location: back pain in unspecified location Back pain laterality: unspecified Qualified Code(s): M54.9 - Dorsalgia, unspecified; G89.29 - Other chronic pain (7) GERD (gastroesophageal reflux disease) Status: Chronic Qualifiers: Esophagitis presence: esophagitis presence not specified Qualified Code(s): K21.9 - Gastro-esophageal reflux disease without esophagitis (8) Fibromyalgia Status: Chronic (9) Obesity Status: Chronic Qualifiers: Obesity type: due to excess calories Obesity classification: adult class 2 (BMI 35 - 39.9) Serious obesity comorbidity presence: unspecified whether serious comorbidity present Body mass index: BMI 38.0-38.9 Qualified Code(s): E66.09 - Other obesity due to excess calories; Z68.38 - Body mass index (BMI) 38.0-38.9, adult (10) HTN (hypertension) Status: Chronic Qualifiers: Hypertension type: essential hypertension Qualified Code(s): I10 - Essential (primary) hypertension History of Present Illness Date of Admission: 06/17/20 Chief Complaint: Cough, hypoxia, tachycardia The patient is a 64 y/o F w/ PMHx: GERD, HTN, HLD, JOANNA on CPAP q HS, Chronic back pain with hardware and Fibromyalgia who presents to the [facility] ED on 06/17/20 with history of onset Thursday prior to current presentation noted body aches, frontal throbbing headache, loss of taste, occasional loose stools within eventual onset significant cough and worsening dyspnea more pronounced on day of ED presentation with fevers with the daughter noted to work in the healthcare system and to be Covid positive with concern for Covid positive status prompting evaluation. Work-up in the ED included T1 100.9, heart rate 113, BP 135/101, respiratory rate 18, 95% on room air however with exertion patient would drop to 90/91% but became extremely tachycardic with the ED ambulation trials with lightheadedness and dizziness, CBC with WC 3.4, hemoglobin 13.2, platelet 125 with leukopenia, D-dimer 2.28, CMP with BUN/creatinine 14/1.21, glucose 108, Covid testing with positive status, chest x-ray with bilateral patchy opacities concerning for multifocal pneumonia, EKG with sinus tachycardia with no acute evidence of ischemia. In the ED patient ministered Tylenol, albuterol, Decadron 10 mg IV x1. Past Medical History Past Medical History (Chronic Problems): Chronic Problems GERD (gastroesophageal reflux disease) (Chronic) Hypertension (Chronic) JOANNA (obstructive sleep apnea) (Chronic) Chronic back pain (Chronic) Fibromyalgia (Chronic) Osteoarthritis of knees, bilateral (Chronic) Angio-edema (Chronic) Obesity (Chronic) HTN (hypertension) (Chronic) Allergies No Known Allergies Allergy (Verified 06/17/20 19:26) Home Medications: Ambulatory Orders Medication Instructions Recorded Aspirin E.C. [Ecotrin] 81 mg PO DAILY@0800 #30 tablet 07/09/13 Hydrochlorothiazide [Hctz] 25 mg PO DAILY 09/10/14 Losartan Potassium [Cozaar] 100 mg PO DAILY 06/02/16 Cholecalciferol (VIT D3) [Vitamin 1,000 unit PO DAILY 12/15/18 D3] Metoprolol Succinate 100 mg PO DAILY 01/09/20 Pregabalin 25 mg PO BID 01/09/20 Famotidine [Pepcid] 20 mg PO BID #60 tab 01/10/20 hydrALAZINE [Apresoline] 50 mg PO TID #90 tab 01/10/20 Oxycodone HCl/Acetaminophen 1 ea PO TID PRN PRN 06/18/20 [Oxycodon-Acetaminophen 7.5-325] traZODone [Desyrel] 50 mg PO QHS 06/18/20 Surgical History: total knee arthroplasty, - - Bilateral total knee replacement, cervical neck surgery, lumbar back surgery, cholecystectomy, hysterectomy with bilateral salpingo-oophorectomy. 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 Paternal History Items: Cancer - Father with history of renal cancer, colon cancer and melanoma., Heart Disease Review of Systems Constitutional: Reports: Anorexia, Fever, Malaise, Weakness, Fatigue. Denies: Chills, Weight Change HEENT: Reports: Head Aches, Nasal Congestion, - - Loss of sense of taste.. Denies: Sinus Congestion, Sinus Drainage Cardiovascular: Denies: Chest Pain, Palpitations Respiratory: Reports: Cough, Pleuritic Pain, Shortness of Breath, Shortness of breath at rest, Shortness of breath upon exertion. Denies: Sputum production, Wheezing Gastrointestinal: Reports: Diarrhea. Denies: Abdominal Pain, Nausea, Vomiting Genitourinary: Denies: Dysuria Musculoskeletal: Reports: Joint Pain, Muscle pain. Denies: Joint Tenderness Skin: Denies: Rash, Wounds Neurological: Denies: Numbness, Tingling, Focal weakness Psychiatric: Denies: Anxiety, Depression, Homicidal Ideations, Suicidal Ideations Hematologic/ Lymphatic: Denies: Easy Bruising, Easy Bleeding VTE Information - Inpt Only VTE Present on Admission: No VTE Mechan Device Prophylaxis: SCD's VTE Pharm Prophylaxis ordered?: Yes Patient Problems: Active and Suspected Problems General weakness (Acute) Suspected COVID-19 virus infection (Acute) Acute sepsis (Acute) Pneumonia due to COVID-19 virus (Acute) Hypoxia (Acute) Subjective: Patient laying in the ED bed, fatigued and ill-appearing. Objective: Physical Examination: General: awake, alert, oriented x 3 and cooperative, seated upright in ED bed, fatigued and ill-appearing. Skin: normal color, turgor, no icterus, cyanosis. HEENT: AT/NC, EOMI, PERRLA, mildly dry MM, no carotid bruits or JVD noted. Lungs: Diminished breath sounds throughout, greater bases, increased respiratory rate and some accessory usage, no overt rales, ronchi or wheezing. Heart: Tachycardic with regular rhythm; no gallop, rub audible. Abdomen: soft, obese, NTTP, ND, mildly hyperactive BS, no HSM. Extremities: no cyanosis, clubbing, or edema. Neurological: patient awake, alert, oriented as noted; cognitive function appears baseline intact; pupils equally reactive to light and accomodation; cranial nerves II-XII grossly normal, moving all 4 extremities, no focal deficits, strength severely globally decreased secondary to acute presentation. Psychiatric: affect appears fatigued, ill-appearing, no acute evidence of depressive or anxiety feelings. - Physical Exam Vitals/I&O's: Vital Signs Temp Pulse Resp BP Pulse Ox 100.3 F H 105 H 24 H 141/106 H 95 06/17/20 21:25 06/17/20 21:25 06/17/20 21:25 06/17/20 21:25 06/17/20 21:25 Oxygen Delivery Method Room Air Weight: 239 lb Body Mass Index (BMI) 34.2 Laboratory Results 06/17/20 20:13: WBC 3.4 L, RBC 4.15 L, Hgb 13.2, Hct 38.7, MCV 93.3, MCH 31.8, MCHC 34.1, RDW Std Deviation 44.7 H, RDW Coeff of Moon 13.0, Plt Count 125 L, MPV 11.1, Immature Gran % (Auto) 0.300, Neut % (Auto) 53.7, Lymph % (Auto) 35.1, [place] % (Auto) 10.6 H, Eos % (Auto) 0.0, Baso % (Auto) 0.3, Absolute Neuts (auto) 1.8 L, Absolute Lymphs (auto) 1.19, Nucleated RBC % 0 06/17/20 20:13: Sodium 137, Potassium 4.0, Chloride 101, Carbon Dioxide 30.0, Anion Gap 6, BUN 14, Creatinine 1.21 H, Estim Creat Clear Calc 52.13, Est GFR (MDRD) Af Amer 58 L, Est GFR (MDRD) Non-Af 48 L, BUN/Creatinine Ratio 11.6, Glucose 108 H, Calcium 8.8, Total Bilirubin 0.70, AST 79 H, ALT 67 H, Alkaline Phosphatase 53, Total Protein 8.5 H, Albumin 3.1 L, Globulin 5.4 H, Albumin/Globulin Ratio 0.6 L 06/17/20 20:16: COVID-19 (JESSY) Pending Assessment/Plan All Active Problems Accelerated hypertension (Acute) General weakness (Acute) Suspected COVID-19 virus infection (Acute) Acute sepsis (Acute) Pneumonia due to COVID-19 virus (Acute) Hypoxia (Acute) Muscle spasm (Acute) Radicular pain in left arm (Acute) Chest pain (Acute) The patient is a 64 y/o F w/ PMHx: GERD, HTN, HLD, JOANNA on CPAP q HS, Chronic back pain with hardware and Fibromyalgia who presents to the [facility] ED on 06/17/20 with history of onset Thursday prior to current presentation noted body aches, frontal throbbing headache, loss of taste, occasional loose stools within eventual onset significant cough and worsening dyspnea more pronounced on day of ED presentation with fevers. 1. Acute Sepsis secondary to Acute Hypoxia secondary to Bilateral Pneumonia secondary to Acute Viral Syndrome, COVID-19: Will admit to the COVID PCU unit, will maintain on oxygen with wean as tolerated to room air, HOB, IS parameters w/ pending sputum cultures, respiratory viral panel and urine antigens, will obtain procalcitonin, CRP, CPK, Ferritin, LDH, D-dimer, continue supportive care including q 2 hour turning including prone given no prone bed availability and judicious hydration, closely monitor for worsening status for ARDS and multiorgan failure, request Infectious disease consultation, continue IV decadron regimen. 2. Hypertension: Continue home regimen including metoprolol, losartan, hydralazine, hydrochlorothiazide with hold parameters, PRN hydralazine. 3. Hyperlipidemia: Not on agent, defer to outpatient. 4. Chronic back pain with neuropathy, radiculopathy/fibromyalgia: We will continue patient home pregabalin regimen, as needed pain agents. 5. Obesity: Weight loss and lifestyle changes encouraged. 6. JOANNA: We will maintain on BiPAP nightly given presentation as noted #1. 7. GERD: We will maintain on famotidine. 8. DVT prophylaxis: SCDs, Lovenox. 9. CODE status: Patient HCPOA is Baldo Cottrell and secondary her daughter and living will is currently in place. Discussed CODE status at length including difference between FULL code, DNR-CCA and DNR-CC status. Following discussions about the differences in these status, requested Full Code status. Advanced Care Planning Face to Face Time: 16 minutes. Patient daughter contacted per patient request and updated on her status and admission plan. Inpatient E&M: 87201 Init Hosp L3 Procedures: 11866 Advncd Care Plan 30 Min
[2020-06-17] MEDS: dexAMETHasone 10 MG/ML Vial IV (22:06)
[2020-06-17 22:55] LABS: Probe Check PASS; Specimen Processing Control PASS
[2020-06-17 23:52] LABS: CRP < 2.90 mg/L (0.0-3.0); Ferritin 353 ng/mL (8-252); LDH 465 U/L (84-246)
[2020-06-18] VITALS (20 sets, daily range): BP systolic 109–129; BP diastolic 74–96; PULSE 69–94; RESP 6–18; TEMP 36.2–37.3; O2SAT 92–95
[2020-06-18] MEDS: 0.9% Saline Lock 10 ML Syringe IV ×2 (00:33→10:02)
[2020-06-18] MEDS: 0.9% Normal Saline 1,000 ML 100 ML IV (00:33)
[2020-06-18] MEDS: hydrALAZINE 50 MG Tablet PO ×4 (00:34→20:29)
[2020-06-18] MEDS: Famotidine 20 MG Tablet PO ×3 (00:34→20:29)
[2020-06-18] MEDS: Pregabalin 25 MG Capsule PO ×3 (00:34→20:45)
[2020-06-18] MEDS: Acetaminophen 325 MG Tablet 650 MG PO ×2 (01:02→10:14)
[2020-06-18] MEDS: oxyCODONE 5 MG Tablet PO ×2 (01:02→20:37)
[2020-06-18] MEDS: MELATONIN 3 MG TABLET PO ×2 (01:03→20:45)
[2020-06-18 01:06] LABS: D-Dimer Quantitative (DVT/PE) 2.28 FEU/ug/m (0.27-0.49)
--- NOTE | 2020-06-18 01:36 | CT_ITS ---
HISTORY: CONCERN FOR PE, ELEVATED D-DIMER, + COVID, MUNROE, DIARRHEA, COUGH, SEPSIS, HTN, LUMBAR SX ADDITIONAL HISTORY: None provided. EXAMINATION/TECHNIQUE: CTA Chest WO/W Contrast Injection PULMONARY EMBOLISM PROTOCOL: 2D and 3D images to include MIP and/or volume rendered images CONTRAST: IV 100 mL [id number] Number of images including paperwork: 1133 A radiation dose optimization technique was used for this scan. COMPARISON: 01/09/2020 FINDINGS: PULMONARY ARTERIES: No pulmonary arterial filling defects. AORTA AND GREAT VESSELS: No dissection. Vascular tortuosity. Ectatic ascending aorta, 4.17 m. HEART/PERICARDIUM: Upper normal heart size. Coronary calcifications. Small amount of pericardial fluid. MEDIASTINUM: Unremarkable. ADENOPATHY: No pathologic appearing adenopathy. THYROID: Unremarkable visualized portions. LUNG PARENCHYMA: No dense consolidation. Multifocal bilateral groundglass opacities. Linear opacities with volume loss also noted. PLEURAL SPACES: Unremarkable. UPPER ABDOMEN: Cholecystectomy. OSSEOUS AND SOFT TISSUE STRUCTURES: No acute skeletal findings. Degenerative changes. CT/CTA Chest W/WO Contrast IMPRESSION: 1. No pulmonary embolus detected. 2. Multifocal bilateral infiltrates concerning for infection. COVID-19 possible. Individualized dose optimization techniques were used for this CT. at 0359 Reported and signed by: Camryn Azul MD Electronically Signed: Camryn Azul MD at 3:59 EST Tel , Service support ,
--- NOTE | 2020-06-18 02:52 | CPS ---
Pt could not tolerate PAP at this time. Pt was trialed on bilevel 10/5 and also trialed on CPAP 5. Pt could not acclimate with increasing anxiety. Pt stated interest in trying again when anxiety decreases.
[2020-06-18 03:15] LABS: Procalcitonin < 0.02 ng/mL (0.00-0.09)
[2020-06-18 07:17] LABS: Absolute Lymphocyte Count 0.71 X10^3/uL (0.83-4.51); Absolute Neutrophil Count 1.3 X10^3/uL (2.0-7.7); Hematocrit 39.1 % (37-47); Hemoglobin 12.8 g/dL (12.0-15.0); Lymphocyte # 0.71 X10^3/ul (4.0); Lymphocyte % 34.1 % (19-41); Mean Corp Hgb Conc 32.7 g/dL (32-36); Mean Corpuscular Volume 94.7 fL (81-99); Mean Platelet Vol. 11.3 fl (6.2-12.0); Monocyte# 0.09 X10^3/uL; Monocyte% 4.3 % (0-10); NRBC Flagged by Analyzer 0 % (0-5); Neutrophil # 1.27 X10^3/uL (2.7-7.7); Neutrophil % 61.1 % (47-70); Platelet Count 123 K/mm3 (150-450); RBC Distribution Width CV 13.2 % (11.6-14.6); RBC Distribution Width SD 46.6 fl (35.1-43.9); Red Blood Count 4.13 M/mm3 (4.2-5.4); White Blood Count 2.1 K/mm3 (4.4-11.0)
[2020-06-18 07:39] LABS: ALB/GLOB Ratio 0.5 RATIO (0.9-2.4); AST(SGOT) 59 U/L (15-37); Alanine Aminotransfer ALT/SGPT 68 U/L (13-56); Albumin, Serum 2.9 g/dL (3.2-5.0); Alkaline Phosphatase 53 U/L (45-117); Anion Gap 6 (5-15); BUN 14 mg/dL (7-18); BUN/Creat Ratio 13.6 RATIO (10-20); Chloride 100 mmol/L (98-107); Creatinine, Serum 1.03 mg/dL (0.55-1.02); EST Glomerular Filtration Rate 58 mL/min (>60); Est Glom Filt Rate - Afr Amer 70 mL/min (>60); Estimated Creatinine Clearance 61.24 ml/min; Globulin 5.4 g/dL (2.2-4.2); Glucose 148 mg/dL (74-106); Potassium 3.3 mmol/L (3.5-5.1); Protein, Total 8.3 g/dL (6.4-8.2); Sodium Level 136 mmol/L (136-145)
[2020-06-18] MEDS: Metoprolol(XL)Succ 100 MG Tablet PO (10:01)
[2020-06-18] MEDS: hydroCHLOROthiazide 25 MG Tablet PO (10:01)
[2020-06-18] MEDS: Enoxaparin 30 MG/0.3 ML Syringe SC ×2 (10:02→20:29)
[2020-06-18] MEDS: Aspirin E.C. 81 MG Tablet PO (10:02)
[2020-06-18] MEDS: dexAMETHasone 10 MG/ML Vial 6 MG IV (10:02)
[2020-06-18] MEDS: Losartan Potassium 100 MG Tablet PO (10:02)
--- NOTE | 2020-06-18 11:06 | CASEMGMT ---
ALEXANDRO GRANADO assessment: Phone interview with patient for initial transition planning/care coordination assessment as pt is COVID positive at this time. ALEXANDRO GRANADO introduced self and role at [facility], pt voices understanding and consents to assessment at this time. Pt is a A/Ox4 at this time and answers all questions appropriately at this time. Pt is currently on room air at this time. Pt speaks in full sentences at this time. Pt states daughter is also COVID + and has been quarantining at home. Pt states no concerns getting supplies that they need. Care providers, pharmacy, and demographics verified at this time. 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 Insurance: [facility] Prescription Benefit: [facility] Living Will/HPOA: Pt states has LW/HPOA and is aware that they are on file at [facility] at this time. Pt's , Sarkis Cottrell, is listed as primary HPOA and then Nancy Rodriguez, daughter, as 2nd HPOA. Bridger SHARP updated at this time, voices understanding. LNOK: Nancy Rodriguez, daughter/HPOA Living Arrangements: Pt states lives alone in 1 story condo with no steps in and states no concerns at home at this time. Pt states is independent with ADL's. Transportation: Pt states drives self and states no transportation concerns at this time. DME/HHC: Pt states no current DME or need for any further DME at this time. Pt states no preference for DME company, if qualifies for home oxygen at discharge. Pt states no hx of HHC or SNF in the past. Pt states no concerns with going home at time of discharge. Pt states is disabled. Pt states does not smoke cigarettes or drink ETOH. Pt states no further concerns/needs at this time. CM to follow for home oxygen need and any further discharge planning/needs. Advised pt to ask for CM if any further questions/concerns/needs arise, voices understanding. Pt Goal: Home Plan[place] ALEXANDRO GRANADO
--- NOTE | 2020-06-18 14:05 | DCINST_ITS ---
- Discharge Diagnoses Current Active Problems: Current Active and Chronic Problems GERD (gastroesophageal reflux disease) (Chronic) General weakness (Acute) Suspected COVID-19 virus infection (Acute) Acute sepsis (Acute) Pneumonia due to COVID-19 virus (Acute) Hypoxia (Acute) Hypertension (Chronic) JOANNA (obstructive sleep apnea) (Chronic) Chronic back pain (Chronic) Fibromyalgia (Chronic) Obesity (Chronic) HTN (hypertension) (Chronic) Reason(s) for Visit for Discharge Instructions: Acute COVID-19 infection You will use the following diet at home:: Cardiac Your food should be the consistency of: Regular Your liquids should be the consistency of: Regular/Thin Discharge Activity: Return to Normal Activity Additional Instructions: Continue to use your incentive spirometer all the time. Complete the oral steroid and aspirin as prescribed. Follow-up with your primary care doctor within 1 to 2 weeks. Allergies/Adverse Reactions: Allergies No Known Allergies Allergy (Verified 06/17/20 19:26) Medications to take at Discharge Aspirin E.C. [Ecotrin] 81 mg PO DAILY@0800 #30 tablet 07/09/13 Hydrochlorothiazide [Hctz] 25 mg PO DAILY 09/10/14 Losartan Potassium [Cozaar] 100 mg PO DAILY 06/02/16 Cholecalciferol (VIT D3) [Vitamin D3] 1,000 unit PO DAILY 12/15/18 Metoprolol Succinate 100 mg PO DAILY 01/09/20 Pregabalin 25 mg PO BID 01/09/20 Famotidine [Pepcid] 20 mg PO BID #60 tab 01/10/20 hydrALAZINE [Apresoline] 50 mg PO TID #90 tab 01/10/20 Acetaminophen [Tylenol Tablet] 650 mg PO Q6H PRN PRN tablet 06/18/20 Aspirin 81 mg PO DAILY 14 Days #14 tab.chew 06/18/20 Dexamethasone 6 mg PO DAILY 8 Days #8 tab 06/18/20 Guaifenesin [Robitussin] 20 ml PO Q4H PRN PRN 7 Days #1 bottle 06/18/20 Oxycodone HCl/Acetaminophen [Oxycodon-Acetaminophen 7.5-325] 1 ea PO TID PRN PRN 06/18/20 traZODone [Desyrel] 50 mg PO QHS 06/18/20 The following prescriptions were given: Aspirin 81 mg PO DAILY 14 Days #14 tab.chew Transmission Status: Pending to [id number] Dexamethasone 6 mg PO DAILY 8 Days #8 tab Transmission Status: Pending to [id number] Guaifenesin [Robitussin] 20 ml PO Q4H PRN PRN 7 Days #1 bottle PRN Reason: COUGH Transmission Status: Pending to [id number] Primary Care Physician: Deyvi Olvera DO [Primary Care Provider] - Please follow up with your Primary Care Physician in: within 1-2 weeks Test Results: Test results from this visit will be discussed in further detail at your follow- up appointment, if applicable. Proposed Discharge Date: 06/18/20
--- NOTE | 2020-06-18 14:17 | PCM.DC.SUM ---
Discharge Date and Diagnosis - Problem List Patient Problems: Active and Suspected Problems General weakness (Acute) Suspected COVID-19 virus infection (Acute) Acute sepsis (Acute) Pneumonia due to COVID-19 virus (Acute) Hypoxia (Acute) Date of Admission: 06/17/20 Date of Discharge: 06/19/20 - Primary Discharge Diagnosis Acute Problems: Active Problems General weakness (Acute) Suspected COVID-19 virus infection (Acute) Acute sepsis (Acute) Pneumonia due to COVID-19 virus (Acute) Hypoxia (Acute) - Secondary Discharge Diagnosis Chronic Problems: Chronic Problems GERD (gastroesophageal reflux disease) (Chronic) Hypertension (Chronic) JOANNA (obstructive sleep apnea) (Chronic) Chronic back pain (Chronic) Fibromyalgia (Chronic) Osteoarthritis of knees, bilateral (Chronic) Angio-edema (Chronic) Obesity (Chronic) HTN (hypertension) (Chronic) Hospital Course and Treatment Operations: None Summary of Care Provided: The patient is a 64 year old F [] Patient Problems: Active and Suspected Problems General weakness (Acute) Suspected COVID-19 virus infection (Acute) Acute sepsis (Acute) Pneumonia due to COVID-19 virus (Acute) Hypoxia (Acute) - Physical Exam Vitals/I&O's: Vital Signs Temp Pulse Resp BP Pulse Ox 98.8 F 77 18 119/77 94 06/18/20 13:28 06/18/20 13:30 06/18/20 13:28 06/18/20 13:28 06/18/20 13:45 Oxygen Delivery Method Room Air Weight: 109.3 kg Body Mass Index (BMI) 34.2 Intake and Output for Last 24 Hours 06/16/20 06/17/20 06/18/20 23:59 23:59 23:59 Intake Total 1460 / 1460 Output Total 0 / 0 Balance 1460 / 1460 Microbiology Past 72 Hours 06/18/20 10:15 Urine, Clean Catch Legionella Antigen - Final 06/18/20 10:15 Urine, Clean Catch Streptococcus pneumoniae Antigen (M - Final 06/17/20 20:16 Mucosa - Nose Respiratory Panel (PCR) - Final Laboratory Results 06/17/20 20:13: WBC 3.4 L, RBC 4.15 L, Hgb 13.2, Hct 38.7, MCV 93.3, MCH 31.8, MCHC 34.1, RDW Std Deviation 44.7 H, RDW Coeff of Moon 13.0, Plt Count 125 L, MPV 11.1, Immature Gran % (Auto) 0.300, Neut % (Auto) 53.7, Lymph % (Auto) 35.1, [place] % (Auto) 10.6 H, Eos % (Auto) 0.0, Baso % (Auto) 0.3, Absolute Neuts (auto) 1.8 L, Absolute Lymphs (auto) 1.19, Nucleated RBC % 0 06/17/20 20:13: Sodium 137, Potassium 4.0, Chloride 101, Carbon Dioxide 30.0, Anion Gap 6, BUN 14, Creatinine 1.21 H, Estim Creat Clear Calc 52.13, Est GFR (MDRD) Af Amer 58 L, Est GFR (MDRD) Non-Af 48 L, BUN/Creatinine Ratio 11.6, Glucose 108 H, Calcium 8.8, Total Bilirubin 0.70, AST 79 H, ALT 67 H, Alkaline Phosphatase 53, Total Protein 8.5 H, Albumin 3.1 L, Globulin 5.4 H, Albumin/Globulin Ratio 0.6 L 06/17/20 20:13: Magnesium 2.0, Ferritin 353 H, Lactate Dehydrogenase 465 H, C-React Prot Ext Range < 2.90 06/17/20 20:16: COVID-19 (JESSY) Cancelled 06/17/20 20:16: COVID-19 (JESSY) Positive 06/18/20 00:40: D-Dimer Quant (PE/DVT) 2.28 H* 06/18/20 00:40: Procalcitonin < 0.02 06/18/20 06:42: WBC 2.1 L, RBC 4.13 L, Hgb 12.8, Hct 39.1, MCV 94.7, MCH 31.0, MCHC 32.7, RDW Std Deviation 46.6 H, RDW Coeff of Moon 13.2, Plt Count 123 L, MPV 11.3, Immature Gran % (Auto) 0.500, Neut % (Auto) 61.1, Lymph % (Auto) 34.1, [place] % (Auto) 4.3, Eos % (Auto) 0.0, Baso % (Auto) 0.0, Absolute Neuts (auto) 1.3 L, Absolute Lymphs (auto) 0.71 L, Nucleated RBC % 0 06/18/20 06:42: Sodium 136, Potassium 3.3 L, Chloride 100, Carbon Dioxide 30.0, Anion Gap 6, BUN 14, Creatinine 1.03 H, Estim Creat Clear Calc 61.24, Est GFR (MDRD) Af Amer 70, Est GFR (MDRD) Non-Af 58 L, BUN/Creatinine Ratio 13.6, Glucose 148 H, Calcium 9.0, Total Bilirubin 0.50, AST 59 H, ALT 68 H, Alkaline Phosphatase 53, Total Protein 8.3 H, Albumin 2.9 L, Globulin 5.4 H, Albumin/Globulin Ratio 0.5 L Current Medications Acetaminophen (Acetaminophen 325 Mg Tablet) 650 mg PO Q6H PRN PRN PRN Reason: Pain Score 1-10/Temp > 100.7 F Last Admin: 06/18/20 10:14 Dose: 650 mg Documented by: Al Hydroxide/Mg Hydroxide (Mag Hydrox/Al Hydrox/Simeth 30 Ml Udc) 30 ml PO Q6H PRN PRN PRN Reason: Gastric Burning Albuterol Sulfate (Albuterol 2.5 Mg/3 Ml Vial.Neb.) 2.5 mg INHALATION Q2H PRN PRN PRN Reason: Dyspnea, wheezing Aspirin (Aspirin E.C. 81 Mg Tablet) 81 mg PO DAILY [facility] Last Admin: 06/18/20 10:02 Dose: 81 mg Documented by: Cholecalciferol (Cholecalciferol (Vit D3) 1,000 Unit (25mcg)) 1,000 unit PO DAILY [facility] Last Admin: 06/18/20 10:00 Dose: 1,000 unit Documented by: Dexamethasone Sodium Phosphate (Dexamethasone 10 Mg/Ml Vial) 6 mg IV Q24 [facility] Last Admin: 06/18/20 10:02 Dose: 6 mg Documented by: Enoxaparin Sodium (Enoxaparin 30 Mg/0.3 Ml Syringe) 30 mg SC BID [facility] Last Admin: 06/18/20 10:02 Dose: 30 mg Documented by: Famotidine (Famotidine 20 Mg Tablet) 20 mg PO BID [facility] Last Admin: 06/18/20 10:02 Dose: 20 mg Documented by: Guaifenesin (Guaifenesin 10 Ml Udc (200mg/10ml)) 20 ml PO Q4H PRN PRN PRN Reason: COUGH Hydralazine HCl (Hydralazine 50 Mg Tablet) 50 mg PO TID [facility] Last Admin: 06/18/20 13:30 Dose: 50 mg Documented by: Hydralazine HCl (Hydralazine 20 Mg/Ml Vial) 10 mg IV Q4H PRN PRN PRN Reason: SBP > 160 Hydrochlorothiazide (Hydrochlorothiazide 25 Mg Tablet) 25 mg PO DAILY [facility] Last Admin: 06/18/20 10:01 Dose: 25 mg Documented by: Sodium Chloride () 250 mls @ 15 mls/hr IV .[id number] PRN PRN Reason: Saline Flush Sodium Chloride () 250 mls @ 15 mls/hr IV .[id number] PRN PRN Reason: Additional IVPB Infusion Losartan Potassium (Losartan Potassium 100 Mg Tablet) 100 mg PO DAILY [facility] Last Admin: 06/18/20 10:02 Dose: 100 mg Documented by: Magnesium Hydroxide (Magnesium Hydroxide 30 Ml Udc) 30 ml PO DAILY PRN PRN PRN Reason: Constipation Melatonin (Melatonin 3 Mg Tablet) 3 mg PO QHS PRN PRN PRN Reason: INSOMNIA Last Admin: 06/18/20 01:03 Dose: 3 mg Documented by: Metoprolol Succinate (Metoprolol(Xl)Succ 100 Mg Tablet) 100 mg PO DAILY [facility] Last Admin: 06/18/20 10:01 Dose: 100 mg Documented by: Morphine Sulfate (Morphine 2 Mg/Ml Syringe) 2 mg IV Q3H PRN PRN PRN Reason: Pain Score 6-10 Nitroglycerin (Nitroglycerin (Inpatient Use) 0.4 Mg Tab.Subl) 0.4 mg SUBLINGUAL Q5M PRN PRN Reason: CARDIAC/CHEST PAIN Ondansetron HCl (Ondansetron 4 Mg/2 Ml Vial) 4 mg IV Q8H PRN PRN PRN Reason: NAUSEA/VOMITING Oxycodone HCl (Oxycodone 5 Mg Tablet) 5 mg PO Q4H PRN PRN PRN Reason: Pain Score 4-5 Last Admin: 06/18/20 01:02 Dose: 5 mg Documented by: Pregabalin (Pregabalin 25 Mg Capsule) 25 mg PO BID [facility] Last Admin: 06/18/20 10:00 Dose: 25 mg Documented by: Prochlorperazine Edisylate (Prochlorperazine 10 Mg/2 Ml Vial) 5 mg IV Q4H PRN PRN PRN Reason: Breakthrough Nausea/Vomiting Psyllium Hydrophilic Mucilloid (Psyllium 1 Packet) 1 packet PO DAILY PRN PRN PRN Reason: Constipation Senna/Docusate Sodium (Senna/Docusate Sodium 1 Tablet) 2 tablet PO BID PRN PRN PRN Reason: Constipation Sodium Chloride (0.9% Saline Lock 10 Ml Syringe) 10 - 40 ml IV UD PRN PRN Reason: SALINE FLUSH Last Admin: 06/18/20 10:02 Dose: 10 ml Documented by: Throat Lozenges (Benzocaine/Menthol 1 Lozenge) 1 lozenge MUCOUS MEM Q2H PRN PRN PRN Reason: SORE THROAT Discharge Activity: Return to Normal Activity Home Medications: Medications to take at Discharge Aspirin E.C. [Ecotrin] 81 mg PO DAILY@0800 #30 tablet 07/09/13 Hydrochlorothiazide [Hctz] 25 mg PO DAILY 09/10/14 Losartan Potassium [Cozaar] 100 mg PO DAILY 06/02/16 Cholecalciferol (VIT D3) [Vitamin D3] 1,000 unit PO DAILY 12/15/18 Metoprolol Succinate 100 mg PO DAILY 01/09/20 Pregabalin 25 mg PO BID 01/09/20 Famotidine [Pepcid] 20 mg PO BID #60 tab 01/10/20 hydrALAZINE [Apresoline] 50 mg PO TID #90 tab 01/10/20 Acetaminophen [Tylenol Tablet] 650 mg PO Q6H PRN PRN tab 06/18/20 Aspirin 81 mg PO DAILY 14 Days #14 tab.chew 06/18/20 Dexamethasone 6 mg PO DAILY 8 Days #8 tab 06/18/20 Guaifenesin [Robitussin] 20 ml PO Q4H PRN PRN 7 Days #1 bottle 06/18/20 Oxycodone HCl/Acetaminophen [Oxycodon-Acetaminophen 7.5-325] 1 ea PO TID PRN PRN 06/18/20 traZODone [Desyrel] 50 mg PO QHS 06/18/20 Following Prescriptions Were Given to Patient: Aspirin 81 mg PO DAILY 14 Days #14 tab.chew Transmission Status: Received by [id number] Dexamethasone 6 mg PO DAILY 8 Days #8 tab Transmission Status: Received by [id number] Guaifenesin [Robitussin] 20 ml PO Q4H PRN PRN 7 Days #1 bottle PRN Reason: COUGH Transmission Status: Received by [id number] Primary Care Physician: Deyvi Olvera DO [Primary Care Provider] - Please follow up with your Primary Care Physician in: within 1-2 weeks Medical Necessity - Tobacco Use Smoking Status: Never smoker Tobacco Use: Non-smoker
--- NOTE | 2020-06-18 16:45 | PN_ITS ---
Patient Problems: Active and Suspected Problems General weakness (Acute) Suspected COVID-19 virus infection (Acute) Acute sepsis (Acute) Pneumonia due to COVID-19 virus (Acute) Hypoxia (Acute) Reason for Visit: Follow-up on sepsis secondary to acute COVID-19 pneumonia Subjective: And was seen and examined. She feels very weak. Denied any fever or chills. Not on oxygen. Vitals/I&O's: Vital Signs Temp Pulse Resp BP Pulse Ox 98.8 F 84 18 119/77 94 06/18/20 13:28 06/18/20 15:02 06/18/20 13:28 06/18/20 13:28 06/18/20 13:45 Oxygen Delivery Method Room Air Weight: 109.3 kg Body Mass Index (BMI) 34.2 Intake and Output for Last 24 Hours 06/16/20 06/17/20 06/18/20 23:59 23:59 23:59 Intake Total 1460 / 1460 Output Total 0 / 0 Balance 1460 / 1460 General: Alert, Oriented x3, Cooperative, No apparent distress HEENT: Atraumatic, PERRLA, EOMI, Normocephalic Oral: Moist Mucosa Neck: Supple Lungs: Clear to auscultation, Normal air movement Cardiovascular: Regular rate, Regular Rhythm, Normal S1, Normal S2, No murmurs Abdomen: Bowel Sounds Present, Soft, Non Tender, Non-Distended, No Hepato- splenomegaly Extremities: No edema Skin: No rashes, No breakdown Musculoskeletal: No Tenderness to Palpation of Joints or Extremities Lymphatic: No Cervical, Supraclavicular, or Inguinal Adenopathy Neurological: Cranial nerves II-XII grossly intact, Neuro grossly intact Psych/Mental Status: Normal Affect, Appropriate Microbiology Past 72 Hours 06/18/20 10:15 Urine, Clean Catch Legionella Antigen - Final 06/18/20 10:15 Urine, Clean Catch Streptococcus pneumoniae Antigen (M - Final 06/17/20 20:16 Mucosa - Nose Respiratory Panel (PCR) - Final Laboratory Results 06/17/20 20:13: WBC 3.4 L, RBC 4.15 L, Hgb 13.2, Hct 38.7, MCV 93.3, MCH 31.8, MCHC 34.1, RDW Std Deviation 44.7 H, RDW Coeff of Moon 13.0, Plt Count 125 L, MPV 11.1, Immature Gran % (Auto) 0.300, Neut % (Auto) 53.7, Lymph % (Auto) 35.1, [place] % (Auto) 10.6 H, Eos % (Auto) 0.0, Baso % (Auto) 0.3, Absolute Neuts (auto) 1.8 L, Absolute Lymphs (auto) 1.19, Nucleated RBC % 0 06/17/20 20:13: Sodium 137, Potassium 4.0, Chloride 101, Carbon Dioxide 30.0, An ion Gap 6, BUN 14, Creatinine 1.21 H, Estim Creat Clear Calc 52.13, Est GFR (MDRD) Af Amer 58 L, Est GFR (MDRD) Non-Af 48 L, BUN/Creatinine Ratio 11.6, Glucose 108 H, Calcium 8.8, Total Bilirubin 0.70, AST 79 H, ALT 67 H, Alkaline Phosphatase 53, Total Protein 8.5 H, Albumin 3.1 L, Globulin 5.4 H, Albumin/Globulin Ratio 0.6 L 06/17/20 20:13: Magnesium 2.0, Ferritin 353 H, Lactate Dehydrogenase 465 H, C- React Prot Ext Range < 2.90 06/17/20 20:16: COVID-19 (JESSY) Cancelled 06/17/20 20:16: COVID-19 (JESSY) Positive 06/18/20 00:40: D-Dimer Quant (PE/DVT) 2.28 H* 06/18/20 00:40: Procalcitonin < 0.02 06/18/20 06:42: WBC 2.1 L, RBC 4.13 L, Hgb 12.8, Hct 39.1, MCV 94.7, MCH 31.0, MCHC 32.7, RDW Std Deviation 46.6 H, RDW Coeff of Moon 13.2, Plt Count 123 L, MPV 11.3, Immature Gran % (Auto) 0.500, Neut % (Auto) 61.1, Lymph % (Auto) 34.1, [place] % (Auto) 4.3, Eos % (Auto) 0.0, Baso % (Auto) 0.0, Absolute Neuts (auto) 1.3 L, Absolute Lymphs (auto) 0.71 L, Nucleated RBC % 0 06/18/20 06:42: Sodium 136, Potassium 3.3 L, Chloride 100, Carbon Dioxide 30.0, Anion Gap 6, BUN 14, Creatinine 1.03 H, Estim Creat Clear Calc 61.24, Est GFR (MDRD) Af Amer 70, Est GFR (MDRD) Non-Af 58 L, BUN/Creatinine Ratio 13.6, Glucose 148 H, Calcium 9.0, Total Bilirubin 0.50, AST 59 H, ALT 68 H, Alkaline Phosphatase 53, Total Protein 8.3 H, Albumin 2.9 L, Globulin 5.4 H, Albumin/Globulin Ratio 0.5 L Current Medications Acetaminophen (Acetaminophen 325 Mg Tablet) 650 mg PO Q6H PRN PRN PRN Reason: Pain Score 1-10/Temp > 100.7 F Last Admin: 06/18/20 10:14 Dose: 650 mg Documented by: Al Hydroxide/Mg Hydroxide (Mag Hydrox/Al Hydrox/Simeth 30 Ml Udc) 30 ml PO Q6H PRN PRN PRN Reason: Gastric Burning Albuterol Sulfate (Albuterol 2.5 Mg/3 Ml Vial.Neb.) 2.5 mg INHALATION Q2H PRN PRN PRN Reason: Dyspnea, wheezing Aspirin (Aspirin E.C. 81 Mg Tablet) 81 mg PO DAILY [facility] Last Admin: 06/18/20 10:02 Dose: 81 mg Documented by: Cholecalciferol (Cholecalciferol (Vit D3) 1,000 Unit (25mcg)) 1,000 unit PO DAILY [facility] Last Admin: 06/18/20 10:00 Dose: 1,000 unit Documented by: Dexamethasone Sodium Phosphate (Dexamethasone 10 Mg/Ml Vial) 6 mg IV Q24 [facility] Last Admin: 06/18/20 10:02 Dose: 6 mg Documented by: Enoxaparin Sodium (Enoxaparin 30 Mg/0.3 Ml Syringe) 30 mg SC BID [facility] Last Admin: 06/18/20 10:02 Dose: 30 mg Documented by: Famotidine (Famotidine 20 Mg Tablet) 20 mg PO BID [facility] Last Admin: 06/18/20 10:02 Dose: 20 mg Documented by: Guaifenesin (Guaifenesin 10 Ml Udc (200mg/10ml)) 20 ml PO Q4H PRN PRN PRN Reason: COUGH Hydralazine HCl (Hydralazine 50 Mg Tablet) 50 mg PO TID [facility] Last Admin: 06/18/20 13:30 Dose: 50 mg Documented by: Hydralazine HCl (Hydralazine 20 Mg/Ml Vial) 10 mg IV Q4H PRN PRN PRN Reason: SBP > 160 Hydrochlorothiazide (Hydrochlorothiazide 25 Mg Tablet) 25 mg PO DAILY [facility] Last Admin: 06/18/20 10:01 Dose: 25 mg Documented by: Sodium Chloride () 250 mls @ 15 mls/hr IV .[id number] PRN PRN Reason: Saline Flush Sodium Chloride () 250 mls @ 15 mls/hr IV .[id number] PRN PRN Reason: Additional IVPB Infusion Losartan Potassium (Losartan Potassium 100 Mg Tablet) 100 mg PO DAILY [facility] Last Admin: 06/18/20 10:02 Dose: 100 mg Documented by: Magnesium Hydroxide (Magnesium Hydroxide 30 Ml Udc) 30 ml PO DAILY PRN PRN PRN Reason: Constipation Melatonin (Melatonin 3 Mg Tablet) 3 mg PO QHS PRN PRN PRN Reason: INSOMNIA Last Admin: 06/18/20 01:03 Dose: 3 mg Documented by: Metoprolol Succinate (Metoprolol(Xl)Succ 100 Mg Tablet) 100 mg PO DAILY [facility] Last Admin: 06/18/20 10:01 Dose: 100 mg Documented by: Morphine Sulfate (Morphine 2 Mg/Ml Syringe) 2 mg IV Q3H PRN PRN PRN Reason: Pain Score 6-10 Nitroglycerin (Nitroglycerin (Inpatient Use) 0.4 Mg Tab.Subl) 0.4 mg SUBLINGUAL Q5M PRN PRN Reason: CARDIAC/CHEST PAIN Ondansetron HCl (Ondansetron 4 Mg/2 Ml Vial) 4 mg IV Q8H PRN PRN PRN Reason: NAUSEA/VOMITING Oxycodone HCl (Oxycodone 5 Mg Tablet) 5 mg PO Q4H PRN PRN PRN Reason: Pain Score 4-5 Last Admin: 06/18/20 01:02 Dose: 5 mg Documented by: Pregabalin (Pregabalin 25 Mg Capsule) 25 mg PO BID [facility] Last Admin: 06/18/20 10:00 Dose: 25 mg Documented by: Prochlorperazine Edisylate (Prochlorperazine 10 Mg/2 Ml Vial) 5 mg IV Q4H PRN PRN PRN Reason: Breakthrough Nausea/Vomiting Psyllium Hydrophilic Mucilloid (Psyllium 1 Packet) 1 packet PO DAILY PRN PRN PRN Reason: Constipation Senna/Docusate Sodium (Senna/Docusate Sodium 1 Tablet) 2 tablet PO BID PRN PRN PRN Reason: Constipation Sodium Chloride (0.9% Saline Lock 10 Ml Syringe) 10 - 40 ml IV UD PRN PRN Reason: SALINE FLUSH Last Admin: 06/18/20 10:02 Dose: 10 ml Documented by: Throat Lozenges (Benzocaine/Menthol 1 Lozenge) 1 lozenge MUCOUS MEM Q2H PRN PRN PRN Reason: SORE THROAT STROKE Vital Signs/Narrative: Vital Signs Temp Pulse Resp BP Pulse Ox Pulse Ox Pulse Ox 06/18/20 15:02 84 06/18/20 13:45 92 94 06/18/20 13:30 77 06/18/20 13:28 98.8 F 77 18 119/77 94 Medical Necessity - Tobacco Use Smoking Status: Never smoker Tobacco Use: Non-smoker Assessment/Plan All Active Problems Accelerated hypertension (Acute) General weakness (Acute) Suspected COVID-19 virus infection (Acute) Acute sepsis (Acute) Pneumonia due to COVID-19 virus (Acute) Hypoxia (Acute) Muscle spasm (Acute) Radicular pain in left arm (Acute) Chest pain (Acute) 1. Acute COVID-19 pneumonia with hypoxia Patient is off oxygen, continue on Decadron 2. Hypertension, controlled, continue home regimen 3. Chronic back pain with neuropathy/radiculopathy, continue home medication 4. Obesity, lifestyle modification recommended 5. JOANNA, on BiPAP 6. DVT prophylaxis with Lovenox subcu Inpatient E&M: 72647 Subs Hosp L2
[2020-06-19] VITALS (17 sets, daily range): BP systolic 123–149; BP diastolic 79–87; PULSE 68–118; RESP 18–20; TEMP 36.6–38.5; O2SAT 2–96
--- NOTE | 2020-06-19 02:48 | CPS ---
pt refuses bipap, unable to tolerate
[2020-06-19] MEDS: guaiFENesin 10 ML UDC (200MG/10ML) 20 ML PO ×2 (04:02→08:38)
[2020-06-19] MEDS: hydrALAZINE 50 MG Tablet PO ×3 (05:39→22:08)
[2020-06-19] MEDS: oxyCODONE 5 MG Tablet PO ×2 (05:39→22:09)
[2020-06-19] MEDS: Losartan Potassium 100 MG Tablet PO (08:40)
[2020-06-19] MEDS: Metoprolol(XL)Succ 100 MG Tablet PO (08:40)
[2020-06-19] MEDS: Aspirin E.C. 81 MG Tablet PO (08:40)
[2020-06-19] MEDS: Acetaminophen 325 MG Tablet 650 MG PO ×2 (08:40→17:26)
[2020-06-19] MEDS: Pregabalin 25 MG Capsule PO ×2 (08:40→22:08)
[2020-06-19] MEDS: Famotidine 20 MG Tablet PO ×2 (08:40→22:08)
[2020-06-19] MEDS: 0.9% Saline Lock 10 ML Syringe IV (08:41)
[2020-06-19] MEDS: Enoxaparin 30 MG/0.3 ML Syringe SC ×2 (08:41→22:08)
[2020-06-19] MEDS: hydroCHLOROthiazide 25 MG Tablet PO (08:41)
[2020-06-19] MEDS: dexAMETHasone 10 MG/ML Vial 6 MG IV (08:41)
--- NOTE | 2020-06-19 12:03 | PN_ITS ---
Patient Problems: Active and Suspected Problems General weakness (Acute) Suspected COVID-19 virus infection (Acute) Acute sepsis (Acute) Pneumonia due to COVID-19 virus (Acute) Hypoxia (Acute) Reason for Visit: Follow-up on sepsis secondary to acute COVID-19 pneumonia Subjective: Patient was seen and examined. She has been spiking fever this morning. She appears very weak. She is starting to require oxygen. She was started on 2 L of oxygen and saturating 94% Objective: Physical exam: General: Alert, Oriented x3, Cooperative, No apparent distress HEENT: Atraumatic, PERRLA, EOMI, Normocephalic Oral: Moist Mucosa Neck: Supple Lungs: Clear to auscultation, Normal air movement Cardiovascular: Regular rate, Regular Rhythm, Normal S1, Normal S2, No murmurs Abdomen: Bowel Sounds Present, Soft, Non Tender, Non-Distended, No Hepato- splenomegaly Extremities: No edema Skin: No rashes, No breakdown Musculoskeletal: No Tenderness to Palpation of Joints or Extremities Lymphatic: No Cervical, Supraclavicular, or Inguinal Adenopathy Neurological: Cranial nerves II-XII grossly intact, Neuro grossly intact Psych/Mental Status: Normal Affect, Appropriate Vitals/I&O's: Vital Signs Temp Pulse Resp BP Pulse Ox 101.3 F H 89 18 141/87 H 96 06/19/20 08:35 06/19/20 08:40 06/19/20 08:35 06/19/20 08:35 06/19/20 08:35 Oxygen Delivery Method Room Air Weight: 108.9 kg Body Mass Index (BMI) 34.2 Intake and Output for Last 24 Hours 06/17/20 06/18/20 06/19/20 23:59 23:59 23:59 Intake Total 2500 / 2500 480 / 480 Output Total 0 / 0 Balance 2500 / 2500 480 / 480 Microbiology Past 72 Hours 06/18/20 10:15 Urine, Clean Catch Legionella Antigen - Final 06/18/20 10:15 Urine, Clean Catch Streptococcus pneumoniae Antigen (M - Final 06/17/20 20:16 Mucosa - Nose Respiratory Panel (PCR) - Final Current Medications Acetaminophen (Acetaminophen 325 Mg Tablet) 650 mg PO Q6H PRN PRN PRN Reason: Pain Score 1-10/Temp > 100.7 F Last Admin: 06/19/20 08:40 Dose: 650 mg Documented by: Al Hydroxide/Mg Hydroxide (Mag Hydrox/Al Hydrox/Simeth 30 Ml Udc) 30 ml PO Q6H PRN PRN PRN Reason: Gastric Burning Albuterol Sulfate (Albuterol 2.5 Mg/3 Ml Vial.Neb.) 2.5 mg INHALATION Q2H PRN PRN PRN Reason: Dyspnea, wheezing Aspirin (Aspirin E.C. 81 Mg Tablet) 81 mg PO DAILY [facility] Last Admin: 06/19/20 08:40 Dose: 81 mg Documented by: Cholecalciferol (Cholecalciferol (Vit D3) 1,000 Unit (25mcg)) 1,000 unit PO DAILY [facility] Last Admin: 06/19/20 08:40 Dose: 1,000 unit Documented by: Dexamethasone Sodium Phosphate (Dexamethasone 10 Mg/Ml Vial) 6 mg IV Q24 [facility] Last Admin: 06/19/20 08:41 Dose: 6 mg Documented by: Enoxaparin Sodium (Enoxaparin 30 Mg/0.3 Ml Syringe) 30 mg SC BID [facility] Last Admin: 06/19/20 08:41 Dose: 30 mg Documented by: Famotidine (Famotidine 20 Mg Tablet) 20 mg PO BID [facility] Last Admin: 06/19/20 08:40 Dose: 20 mg Documented by: Guaifenesin (Guaifenesin 10 Ml Udc (200mg/10ml)) 20 ml PO Q4H PRN PRN PRN Reason: COUGH Last Admin: 06/19/20 08:38 Dose: 20 ml Documented by: Hydralazine HCl (Hydralazine 50 Mg Tablet) 50 mg PO TID [facility] Last Admin: 06/19/20 05:39 Dose: 50 mg Documented by: Hydralazine HCl (Hydralazine 20 Mg/Ml Vial) 10 mg IV Q4H PRN PRN PRN Reason: SBP > 160 Hydrochlorothiazide (Hydrochlorothiazide 25 Mg Tablet) 25 mg PO DAILY [facility] Last Admin: 06/19/20 08:41 Dose: 25 mg Documented by: Sodium Chloride () 250 mls @ 15 mls/hr IV .[id number] PRN PRN Reason: Saline Flush Sodium Chloride () 250 mls @ 15 mls/hr IV .[id number] PRN PRN Reason: Additional IVPB Infusion Remdesivir 100 mg/ Sodium (Chloride) 250 mls @ 125 mls/hr IV DAILY [facility] Stop: 06/23/20 11:59 Remdesivir 200 mg/ Sodium (Chloride) 250 mls @ 125 mls/hr IV X1 ONE Stop: 06/19/20 12:59 Last Admin: 06/19/20 11:54 Dose: 125 mls/hr Documented by: Losartan Potassium (Losartan Potassium 100 Mg Tablet) 100 mg PO DAILY [facility] Last Admin: 06/19/20 08:40 Dose: 100 mg Documented by: Magnesium Hydroxide (Magnesium Hydroxide 30 Ml Udc) 30 ml PO DAILY PRN PRN PRN Reason: Constipation Melatonin (Melatonin 3 Mg Tablet) 3 mg PO QHS PRN PRN PRN Reason: INSOMNIA Last Admin: 06/18/20 20:45 Dose: 3 mg Documented by: Metoprolol Succinate (Metoprolol(Xl)Succ 100 Mg Tablet) 100 mg PO DAILY [facility] Last Admin: 06/19/20 08:40 Dose: 100 mg Documented by: Morphine Sulfate (Morphine 2 Mg/Ml Syringe) 2 mg IV Q3H PRN PRN PRN Reason: Pain Score 6-10 Nitroglycerin (Nitroglycerin (Inpatient Use) 0.4 Mg Tab.Subl) 0.4 mg SUBLINGUAL Q5M PRN PRN Reason: CARDIAC/CHEST PAIN Ondansetron HCl (Ondansetron 4 Mg/2 Ml Vial) 4 mg IV Q8H PRN PRN PRN Reason: NAUSEA/VOMITING Oxycodone HCl (Oxycodone 5 Mg Tablet) 5 mg PO Q4H PRN PRN PRN Reason: Pain Score 4-5 Last Admin: 06/19/20 05:39 Dose: 5 mg Documented by: Pregabalin (Pregabalin 25 Mg Capsule) 25 mg PO BID [facility] Last Admin: 06/19/20 08:40 Dose: 25 mg Documented by: Prochlorperazine Edisylate (Prochlorperazine 10 Mg/2 Ml Vial) 5 mg IV Q4H PRN PRN PRN Reason: Breakthrough Nausea/Vomiting Psyllium Hydrophilic Mucilloid (Psyllium 1 Packet) 1 packet PO DAILY PRN PRN PRN Reason: Constipation Senna/Docusate Sodium (Senna/Docusate Sodium 1 Tablet) 2 tablet PO BID PRN PRN PRN Reason: Constipation Sodium Chloride (0.9% Saline Lock 10 Ml Syringe) 10 - 40 ml IV UD PRN PRN Reason: SALINE FLUSH Last Admin: 06/19/20 08:41 Dose: 10 ml Documented by: Throat Lozenges (Benzocaine/Menthol 1 Lozenge) 1 lozenge MUCOUS MEM Q2H PRN PRN PRN Reason: SORE THROAT STROKE Vital Signs/Narrative: Vital Signs Temp Pulse Resp BP Pulse Ox 06/19/20 08:40 89 06/19/20 08:35 101.3 F H 89 18 141/87 H 96 Medical Necessity - Tobacco Use Smoking Status: Never smoker Tobacco Use: Non-smoker Assessment/Plan All Active Problems Accelerated hypertension (Acute) General weakness (Acute) Suspected COVID-19 virus infection (Acute) Acute sepsis (Acute) Pneumonia due to COVID-19 virus (Acute) Hypoxia (Acute) Muscle spasm (Acute) Radicular pain in left arm (Acute) Chest pain (Acute) 1. Acute COVID-19 pneumonia with hypoxia, acute worsening, starting to require oxygen Slowly started on 2 L of oxygen, continue on Decadron Discussed with infectious disease, will start patient on remdesivir 2. Hypertension, controlled, continue home regimen 3. Chronic back pain with neuropathy/radiculopathy, continue home medication 4. Obesity, lifestyle modification recommended 5. JOANNA, on BiPAP 6. DVT prophylaxis with Lovenox subcu 7. Disposition: Possible DC in a.m. Inpatient E&M: 60148 Subs Hosp L2
[2020-06-20] VITALS (20 sets, daily range): BP systolic 129–155; BP diastolic 81–93; PULSE 63–79; RESP 16–34; TEMP 36.3–38.3; O2SAT 91–100
[2020-06-20] MEDS: Acetaminophen 325 MG Tablet 650 MG PO ×2 (04:12→17:08)
[2020-06-20] MEDS: hydrALAZINE 50 MG Tablet PO ×3 (06:03→21:13)
[2020-06-20 06:34] LABS: Hematocrit 38.5 % (37-47); Hemoglobin 12.5 g/dL (12.0-15.0); Mean Corp Hgb Conc 32.5 g/dL (32-36); Mean Corpuscular Hgb 31.3 pg (27.0-32.0); Mean Corpuscular Volume 96.3 fL (81-99); Mean Platelet Vol. 10.9 fl (6.2-12.0); Platelet Count 124 K/mm3 (150-450); RBC Distribution Width CV 13.2 % (11.6-14.6); RBC Distribution Width SD 47.3 fl (35.1-43.9); White Blood Count 4.4 K/mm3 (4.4-11.0)
--- NOTE | 2020-06-20 06:58 | EKG12_ITS ---
Test Reason : SOB Blood Pressure : / mmHG Vent. Rate : 100 BPM Atrial Rate : 100 BPM P-R Int : 158 ms QRS Dur : 076 ms QT Int : 344 ms P-R-T Axes : 027 -13 005 degrees QTc Int : 443 ms Normal sinus rhythm Normal ECG Confirmed by LESLY ROSARIO, JARON ([id number]), telegraph editor ALKA DEL ROSARIO ([id number]) on 06/20/2020 10:37:10 AM Referred By: BOB Confirmed By:JARON GRACE MD
[2020-06-20 07:02] LABS: ALB/GLOB Ratio 0.7 RATIO (0.9-2.4); AST(SGOT) 43 U/L (15-37); Alanine Aminotransfer ALT/SGPT 51 U/L (13-56); Albumin, Serum 2.7 g/dL (3.2-5.0); Alkaline Phosphatase 45 U/L (45-117); Anion Gap 5 (5-15); BUN 16 mg/dL (7-18); BUN/Creat Ratio 16.3 RATIO (10-20); Calcium,Total 8.5 mg/dL (8.5-10.1); Chloride 104 mmol/L (98-107); Creatinine, Serum 0.98 mg/dL (0.55-1.02); EST Glomerular Filtration Rate 61 mL/min (>60); Est Glom Filt Rate - Afr Amer 74 mL/min (>60); Estimated Creatinine Clearance 64.36 ml/min; Globulin 4.1 g/dL (2.2-4.2); Glucose 88 mg/dL (74-106); Potassium 3.8 mmol/L (3.5-5.1); Protein, Total 6.8 g/dL (6.4-8.2); Sodium Level 137 mmol/L (136-145)
--- NOTE | 2020-06-20 07:53 | EKG12_ITS ---
Test Reason : CP Blood Pressure : / mmHG Vent. Rate : 072 BPM Atrial Rate : 072 BPM P-R Int : 174 ms QRS Dur : 088 ms QT Int : 394 ms P-R-T Axes : 050 -03 017 degrees QTc Int : 431 ms Normal sinus rhythm Normal ECG When compared with ECG of 17-JUN-2020 19:39, MANUAL COMPARISON REQUIRED, DATA IS UNCONFIRMED Confirmed by LESLY ROSARIO, JARON ([id number]), associate editor NATANAEL PUGA ([id number]) on 06/22/2020 11:31:38 AM Referred By: ROSE Confirmed By:JARON GRACE MD
[2020-06-20] MEDS: dexAMETHasone 10 MG/ML Vial 6 MG IV (08:48)
[2020-06-20] MEDS: Famotidine 20 MG Tablet PO ×2 (08:49→21:13)
[2020-06-20] MEDS: Aspirin E.C. 81 MG Tablet PO (08:49)
[2020-06-20] MEDS: hydroCHLOROthiazide 25 MG Tablet PO (08:49)
[2020-06-20] MEDS: Losartan Potassium 100 MG Tablet PO (08:49)
[2020-06-20] MEDS: Metoprolol(XL)Succ 100 MG Tablet PO (08:49)
[2020-06-20] MEDS: Pregabalin 25 MG Capsule PO ×2 (08:49→21:12)
[2020-06-20] MEDS: Enoxaparin 30 MG/0.3 ML Syringe SC ×2 (08:49→21:13)
--- NOTE | 2020-06-20 11:03 | CASEMGMT ---
Addendum entered by Scott Mckeon 06/20/20 15:29: Per Dr Anna, pt will be discharged home on Eliquis, and this has been e-scribed to [facility]. Call placed to [facility] and 30-day free trial Eliquis card applied: medication will be free for pt. Original Note: ALEXANDRO GRANADO NOTE: PT/OT notes have been reviewed. No additional therapy recommended. Note states pt may benefit from shower chair and raised toilet seat. Call placed to pt in her room. Introduced self and role of ALEXANDRO GRANADO. Discussed discharge planning. Pt declines need for therapy or HHC at this time. She was made aware, if she decides later she would like either, to discuss this wither her PCP. She voices understanding. Pt also made aware of therapy recommendations for DME. Pt made aware insurance does not cover for shower chair/raised toilet seat, but if she would like these, ALEXANDRO GRANADO could assist her with getting this ordered for her, but she would just need to pay [id number]. Pt states when her was ill, he used a shower chair and pt states thinks it still may be in the home and she wants to check to see if she has one available to use when she gets home before purchasing another one. Pt made aware that if she does not have this available, these can be purchased at [facility] or other drug stores/locations. Pt voices understanding. ALEXANDRO GRANADO advised pt, if she feels too weak to get in the shower, that it may be best to sponge bath for a few days until she is stronger or until a shower chair can be obtained. Pt states she feels this would be a good idea also. Pt does not have home O2. Currently on O2 @ 2 l/m n/c. Discussed possible need of home O2 @ discharge. Pt denies preference of DME company. Pt will need home O2 testing prior to discharge. Green sheet placed on chart for instructions of home O2 set up if pt qualifies for O2. Ashley TAYLORN ALEXANDRO GRANADO
[2020-06-20] MEDS: Lactated Ringers 250 ML 999 ML IV (13:14)
[2020-06-20] MEDS: Lactated Ringers 1,000 ML 100 ML IV ×2 (13:36→23:22)
--- NOTE | 2020-06-20 14:46 | PN_ITS ---
Patient Problems: Active and Suspected Problems General weakness (Acute) Suspected COVID-19 virus infection (Acute) Acute sepsis (Acute) Pneumonia due to COVID-19 virus (Acute) Hypoxia (Acute) Reason for Visit: Follow-up on sepsis secondary to acute COVID-19 pneumonia Subjective: Patient was seen and examined. She complains of dizziness. Her orthostatic vitals were positive. She had some loose stools. Denies any palpitations or abdominal pain. Objective: Physical exam: General: Alert, Oriented x3, Cooperative, No apparent distress HEENT: Atraumatic, PERRLA, EOMI, Normocephalic Oral: Moist Mucosa Neck: Supple Lungs: Clear to auscultation, Normal air movement Cardiovascular: Regular rate, Regular Rhythm, Normal S1, Normal S2, No murmurs Abdomen: Bowel Sounds Present, Soft, Non Tender, Non-Distended, No Hepato- splenomegaly Extremities: No edema Skin: No rashes, No breakdown Musculoskeletal: No Tenderness to Palpation of Joints or Extremities Lymphatic: No Cervical, Supraclavicular, or Inguinal Adenopathy Neurological: Cranial nerves II-XII grossly intact, Neuro grossly intact Psych/Mental Status: Normal Affect, Appropriate Vitals/I&O's: Vital Signs Temp Pulse Resp BP Pulse Ox 99.6 F H 75 16 129/86 H 96 06/20/20 13:32 06/20/20 13:40 06/20/20 13:32 06/20/20 13:32 06/20/20 13:32 Oxygen Flow Rate (L/min) [ 3 AMBULATION with Oxygen] Oxygen Flow Rate (L/min) [At 3 REST on Room Air] Oxygen Flow Rate (L/min) 3 Oxygen Delivery Method Nasal Cannula Weight: 108.9 kg Body Mass Index (BMI) 34.2 Intake and Output for Last 24 Hours 06/18/20 06/19/20 06/20/20 23:59 23:59 23:59 Intake Total 2500 / 2500 1911 600 / 600 Output Total 0 / 0 Balance 2500 / 2500 1911 600 / 600 Microbiology Past 72 Hours 06/18/20 10:15 Urine, Clean Catch Legionella Antigen - Final 06/18/20 10:15 Urine, Clean Catch Streptococcus pneumoniae Antigen (M - Final 06/17/20 20:16 Mucosa - Nose Respiratory Panel (PCR) - Final Laboratory Results 06/20/20 06:16: WBC 4.4, RBC 4.00 L, Hgb 12.5, Hct 38.5, MCV 96.3, MCH 31.3, MCHC 32.5, RDW Std Deviation 47.3 H, RDW Coeff of Moon 13.2, Plt Count 124 L, MPV 10.9 06/20/20 06:16: Sodium 137, Potassium 3.8, Chloride 104, Carbon Dioxide 28.0, Anion Gap 5, BUN 16, Creatinine 0.98, Estim Creat Clear Calc 64.36, Est GFR (MDRD) Af Amer 74, Est GFR (MDRD) Non-Af 61, BUN/Creatinine Ratio 16.3, Glucose 88, Calcium 8.5, Total Bilirubin 0.40, AST 43 H, ALT 51, Alkaline Phosphatase 45, Total Protein 6.8, Albumin 2.7 L, Globulin 4.1, Albumin/Globulin Ratio 0.7 L 06/20/20 06:16: Troponin I 0.023 Current Medications Acetaminophen (Acetaminophen 325 Mg Tablet) 650 mg PO Q6H PRN PRN PRN Reason: Pain Score 1-10/Temp > 100.7 F Last Admin: 06/20/20 04:12 Dose: 650 mg Documented by: Al Hydroxide/Mg Hydroxide (Mag Hydrox/Al Hydrox/Simeth 30 Ml Udc) 30 ml PO Q6H PRN PRN PRN Reason: Gastric Burning Albuterol Sulfate (Albuterol 2.5 Mg/3 Ml Vial.Neb.) 2.5 mg INHALATION Q2H PRN PRN PRN Reason: Dyspnea, wheezing Aspirin (Aspirin E.C. 81 Mg Tablet) 81 mg PO DAILY [facility] Last Admin: 06/20/20 08:49 Dose: 81 mg Documented by: Cholecalciferol (Cholecalciferol (Vit D3) 1,000 Unit (25mcg)) 1,000 unit PO DAILY [facility] Last Admin: 06/20/20 08:49 Dose: 1,000 unit Documented by: Dexamethasone Sodium Phosphate (Dexamethasone 10 Mg/Ml Vial) 6 mg IV Q24 [facility] Last Admin: 06/20/20 08:48 Dose: 6 mg Documented by: Enoxaparin Sodium (Enoxaparin 30 Mg/0.3 Ml Syringe) 30 mg SC BID [facility] Last Admin: 06/20/20 08:49 Dose: 30 mg Documented by: Famotidine (Famotidine 20 Mg Tablet) 20 mg PO BID [facility] Last Admin: 06/20/20 08:49 Dose: 20 mg Documented by: Guaifenesin (Guaifenesin 10 Ml Udc (200mg/10ml)) 20 ml PO Q4H PRN PRN PRN Reason: COUGH Last Admin: 06/19/20 08:38 Dose: 20 ml Documented by: Hydralazine HCl (Hydralazine 50 Mg Tablet) 50 mg PO TID [facility] Last Admin: 06/20/20 13:40 Dose: 50 mg Documented by: Hydralazine HCl (Hydralazine 20 Mg/Ml Vial) 10 mg IV Q4H PRN PRN PRN Reason: SBP > 160 Hydrochlorothiazide (Hydrochlorothiazide 25 Mg Tablet) 25 mg PO DAILY [facility] Last Admin: 06/20/20 08:49 Dose: 25 mg Documented by: Sodium Chloride () 250 mls @ 15 mls/hr IV .[id number] PRN PRN Reason: Saline Flush Sodium Chloride () 250 mls @ 15 mls/hr IV .[id number] PRN PRN Reason: Additional IVPB Infusion Remdesivir 100 mg/ Sodium (Chloride) 250 mls @ 125 mls/hr IV DAILY [facility] Stop: 06/23/20 11:59 Last Infusion: 06/20/20 13:10 Dose: Infused Documented by: Lactated Ringer's () 1,000 mls @ 100 mls/hr IV .Q10H [facility] Stop: 06/21/20 04:59 Last Admin: 06/20/20 13:36 Dose: 100 mls/hr Documented by: Losartan Potassium (Losartan Potassium 100 Mg Tablet) 100 mg PO DAILY [facility] Last Admin: 06/20/20 08:49 Dose: 100 mg Documented by: Magnesium Hydroxide (Magnesium Hydroxide 30 Ml Udc) 30 ml PO DAILY PRN PRN PRN Reason: Constipation Melatonin (Melatonin 3 Mg Tablet) 3 mg PO QHS PRN PRN PRN Reason: INSOMNIA Last Admin: 06/18/20 20:45 Dose: 3 mg Documented by: Metoprolol Succinate (Metoprolol(Xl)Succ 100 Mg Tablet) 100 mg PO DAILY [facility] Last Admin: 06/20/20 08:49 Dose: 100 mg Documented by: Morphine Sulfate (Morphine 2 Mg/Ml Syringe) 2 mg IV Q3H PRN PRN PRN Reason: Pain Score 6-10 Nitroglycerin (Nitroglycerin (Inpatient Use) 0.4 Mg Tab.Subl) 0.4 mg SUBLINGUAL Q5M PRN PRN Reason: CARDIAC/CHEST PAIN Ondansetron HCl (Ondansetron 4 Mg/2 Ml Vial) 4 mg IV Q8H PRN PRN PRN Reason: NAUSEA/VOMITING Oxycodone HCl (Oxycodone 5 Mg Tablet) 5 mg PO Q4H PRN PRN PRN Reason: Pain Score 4-5 Last Admin: 06/19/20 22:09 Dose: 5 mg Documented by: Pregabalin (Pregabalin 25 Mg Capsule) 25 mg PO BID [facility] Last Admin: 06/20/20 08:49 Dose: 25 mg Documented by: Prochlorperazine Edisylate (Prochlorperazine 10 Mg/2 Ml Vial) 5 mg IV Q4H PRN PRN PRN Reason: Breakthrough Nausea/Vomiting Psyllium Hydrophilic Mucilloid (Psyllium 1 Packet) 1 packet PO DAILY PRN PRN PRN Reason: Constipation Senna/Docusate Sodium (Senna/Docusate Sodium 1 Tablet) 2 tablet PO BID PRN PRN PRN Reason: Constipation Sodium Chloride (0.9% Saline Lock 10 Ml Syringe) 10 - 40 ml IV UD PRN PRN Reason: SALINE FLUSH Last Admin: 06/19/20 08:41 Dose: 10 ml Documented by: Throat Lozenges (Benzocaine/Menthol 1 Lozenge) 1 lozenge MUCOUS MEM Q2H PRN PRN PRN Reason: SORE THROAT STROKE Vital Signs/Narrative: Vital Signs Temp Pulse Resp BP Pulse Ox Pulse Ox Pulse Ox 06/20/20 13:40 75 06/20/20 13:32 99.6 F H 75 16 129/86 H 96 06/20/20 11:35 93 06/20/20 11:08 91 94 Medical Necessity - Tobacco Use Smoking Status: Never smoker Tobacco Use: Non-smoker Assessment/Plan All Active Problems Accelerated hypertension (Acute) General weakness (Acute) Suspected COVID-19 virus infection (Acute) Acute sepsis (Acute) Pneumonia due to COVID-19 virus (Acute) Hypoxia (Acute) Muscle spasm (Acute) Radicular pain in left arm (Acute) Chest pain (Acute) 1. Orthostatic vitals secondary to dehydration, slowing improving Will give IVF bolus with gentle maintenance fluids 2. Acute COVID-19 pneumonia with hypoxia, acute worsening, currently on 3L oxygen Continue on Decadron and Remdesivir 3. Hypertension, controlled, continue home regimen 4. Chronic back pain with neuropathy/radiculopathy, continue home medication 5. Obesity, lifestyle modification recommended 6. JOANNA, on BiPAP 7. DVT prophylaxis with Lovenox subcu Inpatient E&M: 38498 Subs Hosp L3
[2020-06-20] MEDS: oxyCODONE 5 MG Tablet PO (21:12)
[2020-06-20] MEDS: guaiFENesin 10 ML UDC (200MG/10ML) 20 ML PO (21:12)
[2020-06-20] MEDS: MELATONIN 3 MG TABLET PO (21:16)
[2020-06-21] VITALS (19 sets, daily range): BP systolic 103–137; BP diastolic 61–85; PULSE 61–97; RESP 18–22; TEMP 36–37.1; O2SAT 90–97
[2020-06-21] MEDS: hydrALAZINE 50 MG Tablet PO ×3 (06:14→20:20)
[2020-06-21] MEDS: Acetaminophen 325 MG Tablet 650 MG PO (06:14)
[2020-06-21] MEDS: guaiFENesin 10 ML UDC (200MG/10ML) 20 ML PO ×2 (06:14→23:19)
[2020-06-21] MEDS: Aspirin E.C. 81 MG Tablet PO (08:43)
[2020-06-21] MEDS: Famotidine 20 MG Tablet PO ×2 (08:43→20:19)
[2020-06-21] MEDS: hydroCHLOROthiazide 25 MG Tablet PO (08:43)
[2020-06-21] MEDS: dexAMETHasone 10 MG/ML Vial 6 MG IV (08:43)
[2020-06-21] MEDS: Metoprolol(XL)Succ 100 MG Tablet PO (08:43)
[2020-06-21] MEDS: 0.9% Saline Lock 10 ML Syringe IV ×2 (08:44→10:46)
[2020-06-21] MEDS: Enoxaparin 30 MG/0.3 ML Syringe SC ×2 (08:45→20:20)
[2020-06-21] MEDS: Losartan Potassium 100 MG Tablet PO (08:45)
[2020-06-21] MEDS: Pregabalin 25 MG Capsule PO (08:48)
--- NOTE | 2020-06-21 11:44 | PCM.PN.HOSP ---
Patient Problems: Active and Suspected Problems General weakness (Acute) Suspected COVID-19 virus infection (Acute) Acute sepsis (Acute) Pneumonia due to COVID-19 virus (Acute) Hypoxia (Acute) Reason for Visit: Follow-up on sepsis secondary to acute COVID-19 pneumonia Subjective: Patient was seen and examined. She is feeling a little better. Able to take in some tea and juices. She has had no diarrhea. She is less short of breath. Still significantly short of breath on exertion. She remains on 4 L of oxygen. Objective: Physical exam: General: Alert, Oriented x3, Cooperative, appears weak and frail HEENT: Atraumatic, PERRLA, EOMI, Normocephalic Oral: Moist Mucosa Neck: Supple Lungs: Clear to auscultation, Normal air movement Cardiovascular: Regular rate, Regular Rhythm, Normal S1, Normal S2, No murmurs Abdomen: Bowel Sounds Present, Soft, Non Tender, Non-Distended, No Hepato-splenomegaly Extremities: No edema Skin: No rashes, No breakdown Musculoskeletal: No Tenderness to Palpation of Joints or Extremities Lymphatic: No Cervical, Supraclavicular, or Inguinal Adenopathy Neurological: Cranial nerves II-XII grossly intact, Neuro grossly intact Psych/Mental Status: Normal Affect, Appropriate Vitals/I&O's: Vital Signs Temp Pulse Resp BP Pulse Ox 97.5 F L 72 22 H 135/85 H 97 06/21/20 08:32 06/21/20 09:16 06/21/20 08:32 06/21/20 08:32 06/21/20 08:32 Oxygen Flow Rate (L/min) [ 3 AMBULATION with Oxygen] Oxygen Flow Rate (L/min) [At 3 REST on Room Air] Oxygen Flow Rate (L/min) 4 Oxygen Delivery Method Nasal Cannula Weight: 110.1 kg Body Mass Index (BMI) 34.2 Intake and Output for Last 24 Hours 06/19/20 06/20/20 06/21/20 23:59 23:59 23:59 Intake Total 1911.67 / 2075.67 768.33 / 768.33 Balance 1911.67 / 768.33 / 768.33 Microbiology Past 72 Hours 06/18/20 10:15 Urine, Clean Catch Legionella Antigen - Final 06/18/20 10:15 Urine, Clean Catch Streptococcus pneumoniae Antigen (M - Final Current Medications Acetaminophen (Acetaminophen 325 Mg Tablet) 650 mg PO Q6H PRN PRN PRN Reason: Pain Score 1-10/Temp > 100.7 F Last Admin: 06/21/20 06:14 Dose: 650 mg Documented by: Al Hydroxide/Mg Hydroxide (Mag Hydrox/Al Hydrox/Simeth 30 Ml Udc) 30 ml PO Q6H PRN PRN PRN Reason: Gastric Burning Albuterol Sulfate (Albuterol 2.5 Mg/3 Ml Vial.Neb.) 2.5 mg INHALATION Q2H PRN PRN PRN Reason: Dyspnea, wheezing Aspirin (Aspirin E.C. 81 Mg Tablet) 81 mg PO DAILY [facility] Last Admin: 06/21/20 08:43 Dose: 81 mg Documented by: Cholecalciferol (Cholecalciferol (Vit D3) 1,000 Unit (25mcg)) 1,000 unit PO DAILY [facility] Last Admin: 06/21/20 08:42 Dose: 1,000 unit Documented by: Dexamethasone Sodium Phosphate (Dexamethasone 10 Mg/Ml Vial) 6 mg IV Q24 [facility] Last Admin: 06/21/20 08:43 Dose: 6 mg Documented by: Enoxaparin Sodium (Enoxaparin 30 Mg/0.3 Ml Syringe) 30 mg SC BID [facility] Last Admin: 06/21/20 08:45 Dose: 30 mg Documented by: Famotidine (Famotidine 20 Mg Tablet) 20 mg PO BID [facility] Last Admin: 06/21/20 08:43 Dose: 20 mg Documented by: Guaifenesin (Guaifenesin 10 Ml Udc (200mg/10ml)) 20 ml PO Q4H PRN PRN PRN Reason: COUGH Last Admin: 06/21/20 06:14 Dose: 20 ml Documented by: Hydralazine HCl (Hydralazine 50 Mg Tablet) 50 mg PO TID [facility] Last Admin: 06/21/20 06:14 Dose: 50 mg Documented by: Hydralazine HCl (Hydralazine 20 Mg/Ml Vial) 10 mg IV Q4H PRN PRN PRN Reason: SBP > 160 Hydrochlorothiazide (Hydrochlorothiazide 25 Mg Tablet) 25 mg PO DAILY [facility] Last Admin: 06/21/20 08:43 Dose: 25 mg Documented by: Sodium Chloride () 250 mls @ 15 mls/hr IV .[id number] PRN PRN Reason: Saline Flush Last Admin: 06/21/20 10:46 Dose: 15 mls/hr Documented by: Sodium Chloride () 250 mls @ 15 mls/hr IV .[id number] PRN PRN Reason: Additional IVPB Infusion Remdesivir 100 mg/ Sodium (Chloride) 250 mls @ 125 mls/hr IV DAILY [facility] Stop: 06/23/20 11:59 Last Admin: 06/21/20 10:46 Dose: 125 mls/hr Documented by: Losartan Potassium (Losartan Potassium 100 Mg Tablet) 100 mg PO DAILY [facility] Last Admin: 06/21/20 08:45 Dose: 100 mg Documented by: Magnesium Hydroxide (Magnesium Hydroxide 30 Ml Udc) 30 ml PO DAILY PRN PRN PRN Reason: Constipation Melatonin (Melatonin 3 Mg Tablet) 3 mg PO QHS PRN PRN PRN Reason: INSOMNIA Last Admin: 06/20/20 21:16 Dose: 3 mg Documented by: Metoprolol Succinate (Metoprolol(Xl)Succ 100 Mg Tablet) 100 mg PO DAILY [facility] Last Admin: 06/21/20 08:43 Dose: 100 mg Documented by: Morphine Sulfate (Morphine 2 Mg/Ml Syringe) 2 mg IV Q3H PRN PRN PRN Reason: Pain Score 6-10 Nitroglycerin (Nitroglycerin (Inpatient Use) 0.4 Mg Tab.Subl) 0.4 mg SUBLINGUAL Q5M PRN PRN Reason: CARDIAC/CHEST PAIN Ondansetron HCl (Ondansetron 4 Mg/2 Ml Vial) 4 mg IV Q8H PRN PRN PRN Reason: NAUSEA/VOMITING Oxycodone HCl (Oxycodone 5 Mg Tablet) 5 mg PO Q4H PRN PRN PRN Reason: Pain Score 4-5 Last Admin: 06/20/20 21:12 Dose: 5 mg Documented by: Pregabalin (Pregabalin 25 Mg Capsule) 25 mg PO BID [facility] Last Admin: 06/21/20 08:48 Dose: 25 mg Documented by: Prochlorperazine Edisylate (Prochlorperazine 10 Mg/2 Ml Vial) 5 mg IV Q4H PRN PRN PRN Reason: Breakthrough Nausea/Vomiting Psyllium Hydrophilic Mucilloid (Psyllium 1 Packet) 1 packet PO DAILY PRN PRN PRN Reason: Constipation Senna/Docusate Sodium (Senna/Docusate Sodium 1 Tablet) 2 tablet PO BID PRN PRN PRN Reason: Constipation Sodium Chloride (0.9% Saline Lock 10 Ml Syringe) 10 - 40 ml IV UD PRN PRN Reason: SALINE FLUSH Last Admin: 06/21/20 10:46 Dose: 10 ml Documented by: Throat Lozenges (Benzocaine/Menthol 1 Lozenge) 1 lozenge MUCOUS MEM Q2H PRN PRN PRN Reason: SORE THROAT STROKE Vital Signs/Narrative: Vital Signs Temp Pulse Resp BP Pulse Ox 06/21/20 09:16 72 06/21/20 08:43 70 06/21/20 08:32 97.5 F L 70 22 H 135/85 H 97 Medical Necessity - Tobacco Use Smoking Status: Never smoker Tobacco Use: Non-smoker Assessment/Plan All Active Problems Accelerated hypertension (Acute) General weakness (Acute) Suspected COVID-19 virus infection (Acute) Acute sepsis (Acute) Pneumonia due to COVID-19 virus (Acute) Hypoxia (Acute) Muscle spasm (Acute) Radicular pain in left arm (Acute) Chest pain (Acute) 1. Orthostatic vitals secondary to dehydration, slowing improving We will recheck orthostatics 2. Acute COVID-19 pneumonia with hypoxia, acute worsening, currently on 4L oxygen Continue on Decadron and Remdesivir 3. Hypertension, controlled, continue home regimen 4. Chronic back pain with neuropathy/radiculopathy, continue home medication 5. Obesity, lifestyle modification recommended 6. JOANNA, on BiPAP 7. DVT prophylaxis with Lovenox subcu Inpatient E&M: 62129 Subs Hosp L2
[2020-06-22] VITALS (13 sets, daily range): BP systolic 124–153; BP diastolic 81–90; PULSE 59–69; RESP 18–20; TEMP 35.8–37.2; O2SAT 92–95
[2020-06-22] MEDS: hydrALAZINE 50 MG Tablet PO ×2 (06:28→14:07)
[2020-06-22 08:14] LABS: Absolute Lymphocyte Count 2.18 X10^3/uL (0.83-4.51); Basophil# 0.01 X10^3/uL; Basophil% 0.2 % (0-1); Eosinophil# 0.01 X10^3/uL; Eosinophils% 0.2 % (0-5); Hematocrit 41.7 % (37-47); Hemoglobin 13.8 g/dL (12.0-15.0); Lymphocyte # 2.18 X10^3/ul (4.0); Lymphocyte % 38.2 % (19-41); Mean Corp Hgb Conc 33.1 g/dL (32-36); Mean Corpuscular Hgb 31.4 pg (27.0-32.0); Mean Corpuscular Volume 94.8 fL (81-99); Mean Platelet Vol. 11.4 fl (6.2-12.0); Monocyte# 0.51 X10^3/uL; Monocyte% 8.9 % (0-10); NRBC Flagged by Analyzer 0 % (0-5); Neutrophil # 2.98 X10^3/uL (2.7-7.7); Neutrophil % 52.1 % (47-70); Platelet Count 193 K/mm3 (150-450); RBC Distribution Width CV 13.2 % (11.6-14.6); RBC Distribution Width SD 46.6 fl (35.1-43.9); White Blood Count 5.7 K/mm3 (4.4-11.0)
--- NOTE | 2020-06-22 08:14 | NURSING ---
pox varied from 88 to 91% on 2.5 L nc while getting pt to chair, but jumped up to 100% at rest. O2 off for now while sitting in recliner.
[2020-06-22] MEDS: dexAMETHasone 2 MG TABLET 6 MG PO (08:16)
[2020-06-22] MEDS: Losartan Potassium 100 MG Tablet PO (08:17)
[2020-06-22] MEDS: Aspirin E.C. 81 MG Tablet PO (08:17)
[2020-06-22] MEDS: hydroCHLOROthiazide 25 MG Tablet PO (08:17)
[2020-06-22] MEDS: Metoprolol(XL)Succ 100 MG Tablet PO (08:17)
[2020-06-22] MEDS: Famotidine 20 MG Tablet PO (08:17)
[2020-06-22] MEDS: Enoxaparin 30 MG/0.3 ML Syringe SC (08:18)
[2020-06-22] MEDS: Acetaminophen 325 MG Tablet 650 MG PO (08:27)
[2020-06-22 08:29] LABS: ALB/GLOB Ratio 0.5 RATIO (0.9-2.4); AST(SGOT) 73 U/L (15-37); Alanine Aminotransfer ALT/SGPT 78 U/L (13-56); Albumin, Serum 2.8 g/dL (3.2-5.0); Alkaline Phosphatase 51 U/L (45-117); Anion Gap 3 (5-15); BUN 19 mg/dL (7-18); BUN/Creat Ratio 16.8 RATIO (10-20); Calcium,Total 9.3 mg/dL (8.5-10.1); Chloride 101 mmol/L (98-107); Creatinine, Serum 1.13 mg/dL (0.55-1.02); EST Glomerular Filtration Rate 52 mL/min (>60); Est Glom Filt Rate - Afr Amer 63 mL/min (>60); Estimated Creatinine Clearance 55.82 ml/min; Globulin 5.1 g/dL (2.2-4.2); Glucose 86 mg/dL (74-106); Potassium 3.7 mmol/L (3.5-5.1); Protein, Total 7.9 g/dL (6.4-8.2); Sodium Level 137 mmol/L (136-145)
[2020-06-22] MEDS: 0.9% Saline Lock 10 ML Syringe IV (09:53)
--- NOTE | 2020-06-22 11:21 | DCINST_ITS ---
- Discharge Diagnoses Current Active Problems: Current Active and Chronic Problems GERD (gastroesophageal reflux disease) (Chronic) General weakness (Acute) Suspected COVID-19 virus infection (Acute) Acute sepsis (Acute) Pneumonia due to COVID-19 virus (Acute) Hypoxia (Acute) Hypertension (Chronic) JOANNA (obstructive sleep apnea) (Chronic) Chronic back pain (Chronic) Fibromyalgia (Chronic) Obesity (Chronic) HTN (hypertension) (Chronic) Reason(s) for Visit for Discharge Instructions: Acute COVID-19 pneumonia You will use the following diet at home:: Cardiac Your food should be the consistency of: Regular Your liquids should be the consistency of: Regular/Thin Discharge Activity: Return to Normal Activity Additional Instructions: Continue to use your incentive spirometer all the time. Continue to remain active and eat healthy. Let your doctor know if you develop fever >101.3F or have progressive worsening shortness of breath. Complete the oral steroid and anticoagulant as prescribed. Allergies/Adverse Reactions: Allergies No Known Allergies Allergy (Verified 06/17/20 19:26) Medications to take at Discharge Aspirin E.C. [Ecotrin] 81 mg PO DAILY@0800 #30 tablet 07/09/13 Hydrochlorothiazide [Hctz] 25 mg PO DAILY 09/10/14 Losartan Potassium [Cozaar] 100 mg PO DAILY 06/02/16 Cholecalciferol (VIT D3) [Vitamin D3] 1,000 unit PO DAILY 12/15/18 Metoprolol Succinate 100 mg PO DAILY 01/09/20 Pregabalin 25 mg PO BID 01/09/20 Famotidine [Pepcid] 20 mg PO BID #60 tab 01/10/20 hydrALAZINE [Apresoline] 50 mg PO TID #90 tab 01/10/20 Acetaminophen [Tylenol Tablet] 650 mg PO Q6H PRN PRN tab 06/18/20 Dexamethasone 6 mg PO DAILY 8 Days #8 tab 06/18/20 Guaifenesin [Robitussin] 20 ml PO Q4H PRN PRN 7 Days #1 bottle 06/18/20 Oxycodone HCl/Acetaminophen [Oxycodon-Acetaminophen 7.5-325] 1 ea PO TID PRN PRN 06/18/20 traZODone [Desyrel] 50 mg PO QHS 06/18/20 Apixaban [Eliquis] 5 mg PO BID 14 Days #28 tab 06/20/20 dexAMETHasone [Dexamethasone] 6 mg PO DAILY 4 Days #4 tab 06/22/20 The following prescriptions were given: dexAMETHasone [Dexamethasone] 6 mg PO DAILY 4 Days #4 tab Transmission Status: Pending to [id number] Dexamethasone 6 mg PO DAILY 8 Days #8 tab Transmission Status: Received by [facility] Apixaban [Eliquis] 5 mg PO BID 14 Days #28 tab Transmission Status: Received by [facility] Guaifenesin [Robitussin] 20 ml PO Q4H PRN PRN 7 Days #1 bottle PRN Reason: COUGH Transmission Status: Received by [facility] Primary Care Physician: Deyvi Olvera DO [Primary Care Provider] - Please follow up with your Primary Care Physician in: within 1-2 weeks Test Results: Test results from this visit will be discussed in further detail at your follow- up appointment, if applicable. Proposed Discharge Date: 06/18/20
--- NOTE | 2020-06-22 11:52 | NURSING ---
Respiratory called: urgent EKG for chest pain.
--- NOTE | 2020-06-22 13:02 | EKG12_ITS ---
Test Reason : CP Blood Pressure : / mmHG Vent. Rate : 071 BPM Atrial Rate : 071 BPM P-R Int : 168 ms QRS Dur : 080 ms QT Int : 434 ms P-R-T Axes : 044 -04 031 degrees QTc Int : 471 ms Normal sinus rhythm Normal ECG Confirmed by DARIO ROSARIO, FARAZ ([id number]), design editor NATANAEL PUGA ([id number]) on 06/27/2020 10:03:19 AM Referred By: ROSE Confirmed By:FARAZ BISHOP MD
--- NOTE | 2020-06-22 18:18 | DS.PCM_ITS ---
Discharge Date and Diagnosis - Problem List Patient Problems: Active and Suspected Problems General weakness (Acute) Suspected COVID-19 virus infection (Acute) Acute sepsis (Acute) Pneumonia due to COVID-19 virus (Acute) Hypoxia (Acute) Date of Admission: 06/17/20 Date of Discharge: 06/22/20 - Primary Discharge Diagnosis Acute Problems: Active Problems Debility Acute hypoxic respiratory insufficiency Acute COVID-19 pneumonia with hypoxia Orthostatic hypotension - Secondary Discharge Diagnosis Chronic Problems: Chronic Problems GERD (gastroesophageal reflux disease) (Chronic) Hypertension (Chronic) JOANNA (obstructive sleep apnea) (Chronic) Chronic back pain (Chronic) Fibromyalgia (Chronic) Osteoarthritis of knees, bilateral (Chronic) Angio-edema (Chronic) Obesity (Chronic) HTN (hypertension) (Chronic) Hospital Course and Treatment Imaging Results: Clinical Impression(s) from Imaging Studies Chest X-Ray 06/17/20 19:51 IMPRESSION: Bilateral patchy opacities concerning for multifocal pneumonia. Electronically Signed: Brenda Plunkett MD at 21:02 EST Tel , Service support , Chest CTA 06/18/20 01:36 IMPRESSION: 1. No pulmonary embolus detected. 2. Multifocal bilateral infiltrates concerning for infection. COVID-19 possible. Individualized dose optimization techniques were used for this CT. at 0359 Reported and signed by: Camryn Azul MD Electronically Signed: Camryn Azul MD at 3:59 EST Tel , Service support , Operations: None Procedures: None Summary of Care Provided: The patient is a 64 year old F with multiple comorbidities including hypertension, JOANNA on CPAP, obesity, chronic back pain who comes in with complaints of body aches, loss of smell, loose stools, shortness of breath. Patient admitted to having a sick contacts with her daughter who works in a healthcare system and is Covid 19+. She was found to be febrile in the emergency room, tachycardic. COVID-19 PCR was positive. Chest x-ray showed bilateral patchy opacities. CTA of the chest was negative for acute PE. Showed multifocal bilateral infiltrates. He was admitted to the Covid unit. She initially did not require oxygen but was very fatigued. She was started on Decadron. Progressively patient became very short of breath. She was found to orthostatic and had fluid boluses in maintenance fluids. She continued to improve. She received IV remdesivir. She was discharged to complete 10-day course of dexamethasone. She was also discharged on low-dose Eliquis for 2 weeks. Patient was evaluated for home oxygen and did not qualify. She will be followed up by her primary care doctor within a week. She was encouraged to use her incentive spirometer. Patient Problems: Active and Suspected Problems General weakness (Acute) Suspected COVID-19 virus infection (Acute) Acute sepsis (Acute) Pneumonia due to COVID-19 virus (Acute) Hypoxia (Acute) Subjective: On the day of discharge, patient was seen and examined. Denied any new complai nts. She feels improved but overall fatigued. Reassurance given to her. Objective: Physical exam: General: Alert, Oriented x3, Cooperative, appears weak and frail HEENT: Atraumatic, PERRLA, EOMI, Normocephalic Oral: Moist Mucosa Neck: Supple Lungs: Clear to auscultation, Normal air movement Cardiovascular: Regular rate, Regular Rhythm, Normal S1, Normal S2, No murmurs Abdomen: Bowel Sounds Present, Soft, Non Tender, Non-Distended, No Hepato- splenomegaly Extremities: No edema Skin: No rashes, No breakdown Musculoskeletal: No Tenderness to Palpation of Joints or Extremities Lymphatic: No Cervical, Supraclavicular, or Inguinal Adenopathy Neurological: Cranial nerves II-XII grossly intact, Neuro grossly intact Psych/Mental Status: Normal Affect, Appropriate - Physical Exam Vitals/I&O's: Vital Signs Temp Pulse Resp BP Pulse Ox 96.4 F L 69 20 H 131/87 H 95 06/22/20 12:23 06/22/20 14:07 06/22/20 12:23 06/22/20 12:23 06/22/20 12:23 Oxygen Flow Rate (L/min) [ 3 AMBULATION with Oxygen] Oxygen Flow Rate (L/min) [At 3 REST on Room Air] Oxygen Flow Rate (L/min) 2.5 Oxygen Delivery Method Room Air Weight: 109.3 kg Body Mass Index (BMI) 34.2 Intake and Output for Last 24 Hours 06/20/20 06/21/20 06/22/20 23:59 23:59 23:59 Intake Total 6.67 / 2075.67 1078.08 / 1078.08 250 / 250 Output Total 800 / 800 Balance 2076.67 / 2076.67 278.08 / 278.08 250 / 250 Laboratory Results 06/22/20 07:30: WBC 5.7, RBC 4.40, Hgb 13.8, Hct 41.7, MCV 94.8, MCH 31.4, MCHC 33.1, RDW Std Deviation 46.6 H, RDW Coeff of Moon 13.2, Plt Count 193, MPV 11.4, Immature Gran % (Auto) 0.400, Neut % (Auto) 52.1, Lymph % (Auto) 38.2, [place] % (Auto) 8.9, Eos % (Auto) 0.2, Baso % (Auto) 0.2, Absolute Neuts (auto) 3.0, Absolute Lymphs (auto) 2.18, Nucleated RBC % 0 06/22/20 07:30: Sodium 137, Potassium 3.7, Chloride 101, Carbon Dioxide 33.0 H, Anion Gap 3 L, BUN 19 H, Creatinine 1.13 H, Estim Creat Clear Calc 55.82, Est GF R (MDRD) Af Amer 63, Est GFR (MDRD) Non-Af 52 L, BUN/Creatinine Ratio 16.8, Glucose 86, Calcium 9.3, Total Bilirubin 0.70, AST 73 H, ALT 78 H, Alkaline Phosphatase 51, Total Protein 7.9, Albumin 2.8 L, Globulin 5.1 H, Albumin/Globulin Ratio 0.5 L Discharge Diet: Low fat/ Low Cholesterol, 2000 mg Sodium Diet Discharge Activity: Return to Normal Activity Home Medications: Medications to take at Discharge Aspirin E.C. [Ecotrin] 81 mg PO DAILY@0800 #30 tablet 07/09/13 Hydrochlorothiazide [Hctz] 25 mg PO DAILY 09/10/14 Losartan Potassium [Cozaar] 100 mg PO DAILY 06/02/16 Cholecalciferol (VIT D3) [Vitamin D3] 1,000 unit PO DAILY 12/15/18 Metoprolol Succinate 100 mg PO DAILY 01/09/20 Pregabalin 25 mg PO BID 01/09/20 Famotidine [Pepcid] 20 mg PO BID #60 tab 01/10/20 hydrALAZINE [Apresoline] 50 mg PO TID #90 tab 01/10/20 Acetaminophen [Tylenol Tablet] 650 mg PO Q6H PRN PRN tab 06/18/20 Guaifenesin [Robitussin] 20 ml PO Q4H PRN PRN 7 Days #1 bottle 06/18/20 Oxycodone HCl/Acetaminophen [Oxycodon-Acetaminophen 7.5-325] 1 ea PO TID PRN PRN 06/18/20 traZODone [Desyrel] 50 mg PO QHS 06/18/20 Apixaban [Eliquis] 5 mg PO BID 14 Days #28 tab 06/20/20 Albuterol Inhaler [Ventolin Hfa] 2 puff INHALATION Q4H PRN PRN #1 inhaler 06/22/20 dexAMETHasone [Dexamethasone] 6 mg PO DAILY 4 Days #4 tab 06/22/20 Following Prescriptions Were Given to Patient: dexAMETHasone [Dexamethasone] 6 mg PO DAILY 4 Days #4 tab [id number] Apixaban [Eliquis] 5 mg PO BID 14 Days #28 tab Transmission Status: [id number] Guaifenesin [Robitussin] 20 ml PO Q4H PRN PRN 7 Days #1 bottle PRN Reason: COUGH Transmission Status: Received by [id number] Albuterol Inhaler [Ventolin Hfa] 2 puff INHALATION Q4H PRN PRN #1 inhaler PRN Reason: Sob &/Or Wheezing Transmission Status: Received by [id number] Primary Care Physician: Deyvi Olvera DO [Primary Care Provider] - Please follow up with your Primary Care Physician in: within 1-2 weeks Disposition: Home Minutes spent on discharge:: 45 Patient Condition:: Stable Medical Necessity - Tobacco Use Smoking Status: Never smoker Tobacco Use: Non-smoker Meaningful Use Info Meaningful Use Diagnoses (Choose all that apply): None applicable Inpatient E&M: 12386 [facility]
== END 2020-06-22 15:40 | disposition home or self-care (01) | DRG 871 ==
LOC: ED 21:43 → PCU 22:15 → MS2 06-20 15:21
PROVIDERS: Admitting Provider Family Medicine; Emergency Provider Emergency Medicine; PCP Student in an Organized Health Care Education/Training Program; Visit Provider Internal Medicine
DX: A41.89 Other specified sepsis (principal); U07.1 COVID-19; J12.89 Other viral pneumonia; R09.02 Hypoxemia; E66.9 Obesity, unspecified; I10 Essential (primary) hypertension; K21.9 Gastro-esophageal reflux disease without esophagitis; M79.7 Fibromyalgia; Z79.899 Other long term (current) drug therapy; Z68.34 Body mass index [BMI] 34.0-34.9, adult; M54.10 Radiculopathy, site unspecified; G89.29 Other chronic pain; M54.9 Dorsalgia, unspecified; G47.33 Obstructive sleep apnea (adult) (pediatric); E86.0 Dehydration; I95.1 Orthostatic hypotension; R06.89 Other abnormalities of breathing; R53.81 Other malaise
CPT/HCPCS: 36415; 71045; 71275; 80053; 82728; 83615; 83735; 84145; 84484; 85025; 85027; 85379; 86140; 87449; 87633; 87635; 93005; 94002; 97110; 97116; 97162; 97166; 97530; 97535; 99251; 99285; J7030; J7050; J7120; Q9967; A4216; G0463; U0002

== ENCOUNTER 2021-08-01 11:48 | Emergency (ER) | payer MEDICARE, SELFPAY ==
[2021-08-01 11:49] VITALS: BP 181/122; PULSE 107; RESP 16; TEMP 36.8; O2SAT 98; BMI 32.8
[2021-08-01 13:23] VITALS: O2SAT 94
[2021-08-01 13:28] VITALS: PULSE 93; RESP 24; O2SAT 99
--- NOTE | 2021-08-01 13:30 | RAD_ITS ---
STUDY: X-RAY CHEST REASON FOR EXAM: Female, 65 years old. Cough TECHNIQUE: Single AP portable view of the chest. COMPARISON: Comparison is made with prior study dated 06/17/2020. FINDINGS: EKG electrodes are seen. The lungs are clear and expanded. There is no demonstrated pleural abnormality. Normal size heart. Normal mediastinum and herb. Normal visualized pulmonary arteries. There is atherosclerotic calcification of the aortic arch with tortuosity. There are diffuse degenerative changes of the visualized thoracic spine. Normal visualized ribs, clavicles, and shoulders. There is no demonstrated abnormality of the visualized soft tissue structures of the upper abdomen. RAD/Chest 1 View (Portable) IMPRESSION: No acute abnormality is seen. Electronically Signed: Adama Zazueta MD at 14:34 EST , Service support ,
--- NOTE | 2021-08-01 13:43 | EKG12_ITS ---
Test Reason : SOB Blood Pressure : / mmHG Vent. Rate : 078 BPM Atrial Rate : 078 BPM P-R Int : 174 ms QRS Dur : 092 ms QT Int : 384 ms P-R-T Axes : 048 -05 008 degrees QTc Int : 437 ms Normal sinus rhythm Normal ECG Confirmed by JARON GRACE MD ([id number]), multimedia editor JOLEEN BUCK ([id number]) on 08/05/2021 11:31:19 AM Referred By: SANDRA Confirmed By:JARON GRACE MD
--- NOTE | 2021-08-01 13:48 | EX.ED.VIS.UR ---
HPI HPI - URI History of Present Illness Chief Complaint: Shortness of Breath Narrative Narrative: 65-year-old female presenting with cough, congestion, temperature of 100 ?F. She states has had some sharp pain in her chest centrally. She does feel as if she is short of breath at times. She denies any cardiac history. She states he is a non-smoker. She is unsure if she has been in contact with anybody that has COVID-19. She denies history of DVT/PE. She does not have any known risk factors. ROS ROS ED Constitutional Constitutional ED: Reports chills and fever(s) Eyes Eyes: Denies blurry vision or diplopia ENT ENT ED: Reports rhinorrhea; Denies sore throat Cardiovascular Cardiovascular: Reports chest pain; Denies palpitations Respiratory/Chest Respiratory/Chest: Reports cough and dyspnea Gastrointestinal Gastrointestinal: Denies abdominal pain, nausea or vomiting Genitourinary Genitourinary ED: Denies dysuria or hematuria Musculoskeletal Musculoskeletal: Reports myalgias; Denies arthralgias or neck pain Integumentary Denies Abrasions or rash Neurologic Neurologic: Denies headache(s), paresthesias or weakness PFSH [facility] Medical History Fibromyalgia Home Medications aspirin 81 mg PO DAILY@0800 #30 tablet 07/09/13 [Rx Last Taken 06/17/20 08:00] hydrochlorothiazide 25 mg PO DAILY 09/10/14 [History Last Taken 06/17/20 08:00] losartan 100 mg PO DAILY 06/02/16 [History Last Taken 06/17/20 08:00] cholecalciferol (vitamin D3) [Vitamin D3] 1,000 unit PO DAILY 12/15/18 [History Last Taken 06/17/20 08:00] metoprolol succinate 100 mg PO DAILY 01/09/20 [History Last Taken 06/17/20 08:00] pregabalin 25 mg PO BID 01/09/20 [History Last Taken 06/16/20] famotidine 20 mg PO BID #60 tab 01/10/20 [Rx Last Taken 06/16/20] hydralazine 50 mg PO TID #90 tab 01/10/20 [Rx Last Taken 06/17/20 08:00] acetaminophen 650 mg PO Q6H PRN PRN tab 06/18/20 [Rx Last Taken Unknown] oxycodone-acetaminophen 1 ea PO TID PRN PRN 06/18/20 [History Last Taken 06/17/20 16:00] trazodone 50 mg PO QHS 06/18/20 [History Last Taken 06/16/20] albuterol sulfate 2 puff INHALATION Q4H PRN PRN #1 inhaler 06/22/20 [Rx Last Taken Unknown] Allergy/AdvReac Type Severity Reaction Status Date / Time No Known Allergies Allergy Verified 08/01/21 11:51 Social History Smoking Status: Never smoker EXAM Physical Exam Const Vital Signs: 08/01/21 11:49 08/01/21 13:23 08/01/21 13:28 Temperature 98.3 F Temperature Source Temporal Pulse Rate 107 H 93 Respiratory Rate 16 24 H Respiratory Effort Short of Breath Labored Respiratory Depth Shallow Respiratory Pattern Normal Blood Pressure 181/122 H Blood Pressure Mean 141 Pulse Ox 98 99 Oxygen Delivery Method Room Air Room Air 08/01/21 15:00 Temperature Temperature Source Pulse Rate 76 Respiratory Rate 22 H Respiratory Effort Respiratory Depth Respiratory Pattern Blood Pressure Blood Pressure Mean Pulse Ox 93 Oxygen Delivery Method Room Air Positive well nourished General Appearance ED: NAD; Negative for pallor HEENT Reports moist mucous membranes normocephalic and atraumatic Eyes PERRL and EOMs intact bilaterally Neck no lymphadenopathy, supple and no meningeal signs Resp normal respiratory effort and clear to auscultation bilaterally Neuro oriented x3, CN's II-XII intact bilaterally and no sensory deficits noted Sensorium / Orientation: alert Motor Exam: strength 5/5 throughout Psych mental status grossly normal Skin General Skin Exam: Negative for jaundice or pallor MDM MDM MDM Narrative Medical decision making narrative: Patient presenting with viral symptoms and chest discomfort. I did obtain an EKG which is sinus rhythm ventricular rate of 78 bpm without sign of ischemic change. It is noted on arrival her O2 sats are 98% and respiratory rate is 16. She states she had COVID in 2019. She tested positive again today. CBC shows no leukocytosis. Creatinine slightly elevated 1.32 but not much above baseline. High-sensitivity troponin is 13 and a delta troponin is also 13 so I believe this rules her out for ACS. Chest x-ray on my interpretation shows no acute cardiopulmonary process and the radiologist does agree. D-dimer was elevated at 3.38 and the patient had a CTA of the chest which showed no pulmonary emboli and notes that her previous pulmonary infiltrates have cleared from her last COVID infection. It does show stable subcutaneous carinal lymph nodes. Since patient is not hypoxic or requiring any oxygen and she did test positive for COVID she will be referred for monoclonal antibodies. Patient is amenable to this. She is counseled to monitor her O2 saturations and return for any new or worsening symptoms. Impression: 1. COVID-19 2. Chest pain noncardiac Lab Data Labs: Laboratory Results - last 24 hr 08/01/21 08/01/21 08/01/21 13:40 13:40 13:40 WBC 6.3 RBC 4.18 L Hgb 12.9 Hct 38.3 MCV 91.6 MCH 30.9 MCHC 33.7 RDW Std Deviation 47.2 H RDW Coeff of Moon 14.1 Plt Count 204 MPV 10.6 Immature Gran % (Auto) 0.500 Neut % (Auto) 67.8 Lymph % (Auto) 17.5 L [place] % (Auto) 13.2 H Eos % (Auto) 0.5 Baso % (Auto) 0.5 Absolute Neuts (auto) 4.3 Absolute Lymphs (auto) 1.11 Nucleated RBC % 0 D-Dimer Quant (PE/DVT) 3.38 H* Sodium 140 Potassium 3.5 Chloride 108 H Carbon Dioxide 25.0 Anion Gap 7 BUN 19 H Creatinine 1.32 H Estim Creat Clear Calc 45.59 Est GFR (MDRD) Af Amer 52 L Est GFR (MDRD) Non-Af 43 L BUN/Creatinine Ratio 14.4 Glucose 91 Calcium 9.6 Total Bilirubin 0.40 AST 31 ALT 30 Alkaline Phosphatase 96 Troponin I High Sens 13 Total Protein 9.2 H Albumin 3.1 L Globulin 6.1 H Albumin/Globulin Ratio 0.5 L 08/01/21 15:52 WBC RBC Hgb Hct MCV MCH MCHC RDW Std Deviation RDW Coeff of Moon Plt Count MPV Immature Gran % (Auto) Neut % (Auto) Lymph % (Auto) [place] % (Auto) Eos % (Auto) Baso % (Auto) Absolute Neuts (auto) Absolute Lymphs (auto) Nucleated RBC % D-Dimer Quant (PE/DVT) Sodium Potassium Chloride Carbon Dioxide Anion Gap BUN Creatinine Estim Creat Clear Calc Est GFR (MDRD) Af Amer Est GFR (MDRD) Non-Af BUN/Creatinine Ratio Glucose Calcium Total Bilirubin AST ALT Alkaline Phosphatase Troponin I High Sens 13 Total Protein Albumin Globulin Albumin/Globulin Ratio Radiography Diagnostic Testing: Clinical Impression(s) from Imaging Studies Chest X-Ray 08/01/21 13:30 IMPRESSION: No acute abnormality is seen. Electronically Signed: Adama Zazueta MD at 14:34 EST , Service support , Chest CTA 08/01/21 14:16 IMPRESSION: No evidence of pulmonary embolism. Stable prominence of the subcutaneous carinal lymph nodes. The previously seen bilateral pulmonary infiltrates have cleared. Electronically Signed: Adama Zazueta MD at 15:06 EST , Service support , Discharge Plan Triage Chief Complaint: Shortness of Breath ED Provider: Poli Taylor Dx/Rx/DC Orders Clinical Impression: COVID-19 Instructions: Coronavirus Disease 2019 (COVID-19): Caring for Yourself or Others, ED - COVID Monoclonal AB Infusion ... Prescriptions: No Action aspirin 81 MG tablet 81 mg PO DAILY@0800 Qty: 30 RF: 0 hydrochlorothiazide 25 MG tablet 25 mg PO DAILY RF: 0 losartan 100 MG tablet 100 mg PO DAILY RF: 0 cholecalciferol (vitamin D3) [Vitamin D3] 1,000 UNIT tablet 1,000 unit PO DAILY RF: 0 pregabalin 25 MG capsule 25 mg PO BID RF: 0 metoprolol succinate 100 MG tablet extended release 24 hr 100 mg PO DAILY RF: 0 famotidine 20 MG tablet 20 mg PO BID Qty: 60 RF: 0 hydralazine 50 MG tablet 50 mg PO TID Qty: 90 RF: 0 oxycodone-acetaminophen 1 EACH tablet 1 ea PO TID PRN PRN (Reason: Pain 1-10 Or Fever) RF: 0 trazodone 50 MG tablet 50 mg PO QHS RF: 0 acetaminophen 325 MG tablet 650 mg PO Q6H PRN PRN (Reason: Pain Score 1-10/Temp > 100.7 F) RF: 0 albuterol sulfate 1 INHALER inhaler 2 puff INHALATION Q4H PRN PRN (Reason: Sob &/Or Wheezing) Qty: 1 RF: 0 Primary Care Provider: Deyvi Olvera Referrals: Deyvi Olvera DO [Primary Care Provider] - Disposition Disposition: Home, Self Care Discharge Date/Time: 08/01/21 16:52
[2021-08-01 13:51] LABS: Absolute Lymphocyte Count 1.11 X10^3/uL (0.83-4.51); Absolute Neutrophil Count 4.3 X10^3/uL (2.0-7.7); Basophil# 0.03 X10^3/uL; Basophil% 0.5 % (0-1); Eosinophil# 0.03 X10^3/uL; Eosinophils% 0.5 % (0-5); Hematocrit 38.3 % (37-47); Hemoglobin 12.9 g/dL (12.0-15.0); Lymphocyte # 1.11 X10^3/ul (0.83-4.51); Lymphocyte % 17.5 % (19-41); Mean Corp Hgb Conc 33.7 g/dL (32-36); Mean Corpuscular Hgb 30.9 pg (27.0-32.0); Mean Corpuscular Volume 91.6 fL (81-99); Mean Platelet Vol. 10.6 fl (6.2-12.0); Monocyte# 0.84 X10^3/uL; Monocyte% 13.2 % (0-10); NRBC Flagged by Analyzer 0 % (0-5); Neutrophil % 67.8 % (47-70); Platelet Count 204 K/mm3 (150-450); RBC Distribution Width CV 14.1 % (11.6-14.6); RBC Distribution Width SD 47.2 fl (35.1-43.9); Red Blood Count 4.18 M/mm3 (4.2-5.4); White Blood Count 6.3 K/mm3 (4.4-11.0)
[2021-08-01 14:05] LABS: D-Dimer Quantitative (DVT/PE) 3.38 FEU/ug/m (0.27-0.49)
[2021-08-01 14:10] LABS: ALB/GLOB Ratio 0.5 RATIO (0.9-2.4); AST(SGOT) 31 U/L (15-37); Alanine Aminotransfer ALT/SGPT 30 U/L (13-56); Albumin, Serum 3.1 g/dL (3.2-5.0); Alkaline Phosphatase 96 U/L (45-117); Anion Gap 7 (5-15); BUN 19 mg/dL (7-18); BUN/Creat Ratio 14.4 RATIO (10-20); Calcium,Total 9.6 mg/dL (8.5-10.1); Chloride 108 mmol/L (98-107); Creatinine, Serum 1.32 mg/dL (0.55-1.02); EST Glomerular Filtration Rate 43 mL/min (>60); Est Glom Filt Rate - Afr Amer 52 mL/min (>60); Estimated Creatinine Clearance 45.59 ml/min; Globulin 6.1 g/dL (2.2-4.2); Glucose 91 mg/dL (74-106); Potassium 3.5 mmol/L (3.5-5.1); Protein, Total 9.2 g/dL (6.4-8.2); Sodium Level 140 mmol/L (136-145); Troponin-I HS 13 pg/mL (3.0-54.0)
--- NOTE | 2021-08-01 14:16 | CT_ITS ---
STUDY: CTA CHEST REASON FOR EXAM: Female, 65 years old. Chest pain RADIATION DOSAGE (If Supplied By Facility): CTDIvol = ( 10.88 ) mGy, DLP = ( 453.39 ) mGycm TECHNIQUE: The examination was performed with the intravenous administration of IV 100mL Isovue-370. Post-processing of the angiographic images was performed, with multiplanar reformation and 3D reconstruction. Individualized dose optimization techniques were used for this CT. COMPARISON: Comparison is made with prior study dated 06/18/2020. FINDINGS: Normal enhancement of the main pulmonary artery and right and left pulmonary arteries. Normal enhancement of the bilateral peripheral pulmonary arteries. There is no demonstrated pulmonary embolism. Normal thoracic aorta and visualized great vessels. There is no demonstrated aortic dissection. There are calcifications of the coronary arteries. Stable prominence of the subcarinal lymph nodes. Normal hilar regions. Normal visualized trachea and bronchi. The lungs are well expanded. The previously seen bilateral infiltrates have cleared. Normal pleura. Normal chest wall structures. There are degenerative changes of thoracic spine. The patient is status post cholecystectomy. Small sliding hiatal hernia. CT/CTA Chest W/WO Contrast IMPRESSION: No evidence of pulmonary embolism. Stable prominence of the subcutaneous carinal lymph nodes. The previously seen bilateral pulmonary infiltrates have cleared. Electronically Signed: Aadma Zazueta MD at 15:06 EST , Service support ,
[2021-08-01 15:00] VITALS: PULSE 76; RESP 22; O2SAT 93
[2021-08-01 16:24] LABS: Troponin-I HS 13 pg/mL (3.0-54.0)
== END 2021-08-01 16:52 | disposition home or self-care (01) ==
PROVIDERS: Emergency Provider Student in an Organized Health Care Education/Training Program; PCP Student in an Organized Health Care Education/Training Program; Visit Provider Student in an Organized Health Care Education/Training Program
DX: U07.1 COVID-19 (principal); R07.89 Other chest pain; M79.7 Fibromyalgia; Z79.82 Long term (current) use of aspirin
CPT/HCPCS: 71045; 71275; 80053; 84484; 85025; 85379; 87426; 93005; 99285; Q9967; A4216

== ENCOUNTER 2021-09-18 09:17 | Outpatient (CLI) | payer MEDICARE, SELFPAY ==
--- NOTE | 2021-09-18 09:00 | PET_ITS ---
EXAMINATION: FDG PET/CT INDICATIONS: A 66-year-old female with monoclonal gammopathy of unknown significance presenting for restaging examination. COMPARISON EXAMINATION: None available NON-INDEX LESION SIZE SUV INTERPRETATION Bilateral breast tissue, heterogeneous 1.9 (max) Quantitative criteria for viable neoplasm are not fulfilled, correlation with conventional mammography may be of benefit Right lateral chest wall 2.1 (max) Quantitative criteria for viable neoplasm are not fulfilled TECHNIQUE: Following the intravenous administration of F-18 deoxyglucose, multiplanar image acquisitions of the neck, chest, abdomen and pelvis to level of mid thigh, obtained at one hour post radiopharmaceutical administration contemporaneously interpreted with the current CT of the neck, chest, abdomen and pelvis to level of mid thigh, dated 09/18/21 via coregistration reveal: FINDINGS: 1. There is no quantitative scintigraphic evidence of abnormal increased glucose metabolism on meticulous inspection of whole body acquisitions to include all three axis reconstructions. 2. Normal physiologic distribution of the radiopharmaceutical is apparent in the hepatic (3.9) and splenic parenchyma, both renal units, bladder and visualized intestinal tract. The visualized portion of the cerebral cortical-subcortical structures demonstrate symmetric and preserved glucose metabolism. Prominent radiopharmaceutical concentration appears evident in the bilateral breast tissue generating a calculated maximal standard uptake value of 1.9. Quantitative criteria for viable neoplasm are not fulfilled. There is an asymmetric increase in tracer concentration observed in the right lateral chest wall localized to the subcutaneous fat rendering a calculated maximal standard uptake value of 2.1. Quantitative criteria for neoplasia are not fulfilled. Pertinent CT findings are as follows: CHEST: Coronary arterial calcification is observed. Atherosclerotic calcification is defined in the thoracic aorta, with a maximal axial diameter of the 43.7-mm. Right and left axillary soft tissue densities with fatty hilus are ametabolic. There are no parenchymal densities-nodules defined in the right and left hemithorax with discernible increased tracer uptake. ABDOMEN AND PELVIS: The gallbladder is surgically absent. There is atherosclerotic calcification defined in the abdominal aorta without evidence of dilatation-aneurysm formation. Pelvic arterial calcification is defined. Exophytic cyst formation is encountered in the left kidney. Subcentimeter bilateral inguinal soft tissue densities are non-glucose avid. Calcified phlebolith formation is visualized in the left lower hemipelvis. The uterus is not clear defined. SKELETAL: Degenerative changes are noted in the cervical, thoracic and lumbar spine without evidence of increased radiopharmaceutical concentration. Orthopedic hardware placement is manifest within the lower lumbar spine commensurate with spinal fusion operative intervention. PET/PET/CT Tumor Base -Thigh Init IMPRESSION: 1. NEGATIVE EXAMINATION. There is no definitive quantitative scintigraphic evidence of viable neoplasm. 2. Increased tracer concentration observed in the bilateral breast tissue, right lateral chest do not fulfill quantitative criteria for viable neoplasm. Electronic Signature David Reed D.O. Accurate Quantification of SUVs for this report are calculated using the exclusive [employer], ([place]. Patent No. [id number]). Standardization and correction of the FDG SUV metric exclusively available with [employer] intellectual property, allow for vendor non-specific objective quantitative sequential FDG PET-CT comparison and otherwise unobtainable optimization of the sensitivity and specificity of the examination. Electronically Signed: David Reed DO at 19:32 EST ,
== END 2021-09-18 23:59 | disposition home or self-care (01) ==
PROVIDERS: PCP Student in an Organized Health Care Education/Training Program; Referring Provider Internal Medicine Hematology & Oncology; Visit Provider Internal Medicine Hematology & Oncology
DX: D47.2 Monoclonal gammopathy (principal); D48.7 Neoplasm of uncertain behavior of other specified sites
CPT/HCPCS: 78815; A9552

== ENCOUNTER → 2024-11-21 | Outpatient (CLI) | payer MEDICARE, SELFPAY ==
[2024-11-21 15:44] LABS: Amphetamine Urine NEGATIVE (<1000 ng/mL); Barbiturate Urine NEGATIVE (< 200 ng/mL); Benzodiazepine Urine NEGATIVE (< 200 ng/mL); Buprenorphine Urine NEGATIVE (< 200 ng/mL); Cocaine Urine NEGATIVE (< 300 ng/mL); Fentanyl, Urine NEGATIVE; Methadone Urine NEGATIVE (< 300 ng/mL); Opiates Urine NEGATIVE (< 300 ng/mL); Oxycodone, Urine PRESUMPTIVE POSITIVE (< 100 ng/mL); PCP Urine NEGATIVE (< 25 ng/mL); THC Urine NEGATIVE (< 50 ng/mL)
== END | disposition home or self-care (01) ==
PROVIDERS: PCP Student in an Organized Health Care Education/Training Program; Referring Provider Anesthesiology; Visit Provider Anesthesiology
DX: F11.20 Opioid dependence, uncomplicated (principal)
CPT/HCPCS: 80307

== ENCOUNTER 2025-02-22 09:57 | Emergency (ER) | payer MEDICARE, SELFPAY ==
[2025-02-22] VITALS (9 sets, daily range): BP systolic 146–228; BP diastolic 81–114; PULSE 54–79; RESP 11–16; TEMP 35.8–36.6; O2SAT 97–100; BMI 36.1
--- NOTE | 2025-02-22 10:12 | CT_ITS ---
PROCEDURE: BRAIN/HEAD WITHOUT CONTRAST 02/22/2025 REASON FOR EXAM: MUNROE, HTN TECHNIQUE: BRAIN/HEAD WITHOUT CONTRAST Coronal and Sagittal reconstruction series were provided. One or more dose reduction techniques were used (e.g., Automated exposure control, adjustment of the mA and/or kV according to patient size, use of iterative reconstruction technique. RADIATION DOSE SUMMARY: CTDlvol: 44.99 mGy DLP: 812.98 mGycm COMPARISON: None FINDINGS: Brain: Within normal limits for age CSF Spaces: Normal Sinuses/Mastoids: Clear at visualized levels Bones: No skull fracture or scalp hematoma CT/Brain/Head without Contrast IMPRESSION: Age consistent changes, no acute findings Reading Location: [id number]
--- NOTE | 2025-02-22 10:13 | EKG12_ITS ---
Test Reason : HTN Blood Pressure : */* mmHG Vent. Rate : 64 BPM Atrial Rate : 64 BPM P-R Int : 174 ms QRS Dur : 94 ms QT Int : 420 ms P-R-T Axes : 35 -19 17 degrees QTcB Int : 433 ms Normal sinus rhythm Nonspecific ST abnormality Abnormal ECG Confirmed by LESLY ROSARIO, JARON ([id number]), editorial project manager NATANAEL PUGA ([id number]) on 02/23/2025 8:37:57 AM Referred By: Confirmed By: JARON GRACE MD
--- NOTE | 2025-02-22 10:17 | EX.ED.DYSGE1 ---
HPI History of Present Illness Chief Complaint: Hypertension Narrative Narrative: Chief complaint and HPI: 69-year-old female with past medical history of HTN, osteoarthritis, fibromyalgia presents for evaluation of hypertension. Patient states that her PCP manages her hypertension. She has been taking her medication regularly. Patient states she frequently monitors her blood pressure. States it was elevated last night in which she took her clonidine 0.2 mg. States her hypertension continued this morning with SBP in the 200s. Associated symptom headache and chest tightness which are improving. States that her chronic body pain is acting up in which she saw pain management today. They referred her down here for her hypertension. Patient states that she has issues controlling her hypertension which she states her PCP thinks it may be secondary to her chronic pain. She denies any fever, chills, shortness of breath, abdominal pain, nausea, vomiting, back pain, Neurological deficit. Review of systems: See HPI Medications: As listed on the chart Allergies: As listed on the chart PFSH: Per chart Vital signs: As listed on the chart. Reviewed. Physical exam: Gen: A&O x3, NAD Head: Normocephalic, atraumatic Eyes: No sclera icterus, conjunctiva clear, PERRL, EOMI ENT: Moist mucous membranes Neck: Trachea midline, No JVD CV: RRR, no murmurs, no peripheral edema Resp: Lungs CTA BL, no w/r/c GI: Abd soft, non-distended, non-tender, no r/r/g Musc: Full ROM, no deformity, strength +5/5 in all extremities Skin: Warm, dry, intact Neuro: Alert, oriented, grossly intact, sensation intact, no focal deficits Psych: Cooperative, appropriate mood and affect [facility] Medical History (Updated 02/22/25 @ 14:[address] Adalid Castelan, ) HTN (hypertension) Fibromyalgia Home Medications ?Medication ?Instructions ?Recorded ?Last Taken ?Type aspirin 81 mg tablet,delayed 81 mg PO DAILY@0800 ##30 07/09/13 06/17/20 08:00 Rx release hydrochlorothiazide 25 mg tablet 25 mg PO DAILY blood pressure 09/10/14 06/17/20 08:00 History losartan 100 mg tablet 100 mg PO DAILY blood pressure 06/02/16 06/17/20 08:00 History cholecalciferol (vitamin D3) 25 1,000 unit PO DAILY supplement 12/15/18 06/17/20 08:00 History mcg (1,000 unit) tablet (Vitamin D3) metoprolol succinate 100 mg 100 mg PO DAILY blood pressure 01/09/20 06/17/20 08:00 History tablet,extended release 24 hr pregabalin 25 mg capsule 25 mg PO BID Nerve pain 01/09/20 06/16/20 History famotidine 20 mg tablet 20 mg PO BID #60 tabs 01/10/20 06/16/20 Rx hydralazine 50 mg tablet 50 mg PO TID blood pressure #90 01/10/20 06/17/20 08:00 Rx tabs acetaminophen 325 mg tablet 650 mg (2 x 325 mg) PO Q6H PRN PRN 06/18/20 Unknown Rx Pain Score 1-10/Temp > 100.7 F oxycodone-acetaminophen 7.5 mg-325 1 ea PO TID PRN PRN Pain 1-10 Or 06/18/20 06/17/20 16:00 History mg tablet Fever trazodone 50 mg tablet 50 mg PO QHS sleep 06/18/20 06/16/20 History albuterol sulfate 90 mcg/actuation 2 puff inhalation Q4H PRN PRN Sob 06/22/20 Unknown Rx aerosol inhaler &/Or Wheezing ##1 amlodipine 10 mg tablet 10 mg PO DAILY 30 days #30 tabs 02/22/25 Unknown Rx Allergy/AdvReac Type Severity Reaction Status Date / Time No Known Allergies Allergy Verified 08/01/21 11:51 Social History Smoking Status: Never smoker EXAM Physical Exam Const Vital Signs: 02/22/25 09:57 02/22/25 10:43 02/22/25 10:46 Temperature 96.5 F L Temperature Source Temporal Pulse Rate 79 60 Respiratory Rate 16 13 Respiratory Effort Normal Non-Labored Respiratory Pattern Normal Blood Pressure 228/114 H 204/104 H Blood Pressure Mean 152 137 Pulse Ox 100 97 Oxygen Delivery Method Room Air Room Air 02/22/25 10:48 02/22/25 11:02 02/22/25 11:45 Temperature Temperature Source Pulse Rate 66 74 Respiratory Rate 12 11 L Respiratory Effort Respiratory Pattern Blood Pressure 192/96 H 157/89 H 153/96 H Blood Pressure Mean 128 111 111 Pulse Ox 98 97 Oxygen Delivery Method Room Air 02/22/25 12:00 02/22/25 12:13 02/22/25 13:00 Temperature Temperature Source Pulse Rate 72 71 54 L Respiratory Rate 12 13 15 Respiratory Effort Respiratory Pattern Blood Pressure 149/107 H 146/86 H 146/86 H Blood Pressure Mean 121 106 106 Pulse Ox 98 98 98 Oxygen Delivery Method Room Air Room Air MDM MDM MDM Narrative Medical decision making narrative: 69-year-old female with past medical history of HTN, osteoarthritis, fibromyalgia presents for evaluation of hypertension. Patient states that her PCP manages her hypertension. She has been taking her medication regularly. Endorses uncontrolled HTN since yesterday evening. Also endorses chronic body pain which has been slightly worse than her baseline. Referred down to the ED by pain management due to HTN. Differential diagnosis includes but is not limited to hypertension urgency, hypertensive emergency, electrolyte abnormality, suspect less likely intracranial bleed, adverse effect to chronic pain. On presentation, patient no acute distress however she is hypertensive with SBP in the 220s. On chart review, patient takes Coreg 25 mg daily, clonidine 0.2 mg tablet twice daily as needed, hydralazine 50 mg 3 times daily, losartan/hydrochlorothiazide 100 mg-25 mg daily. Patient states she took all of her daily medication. Hydralazine, morphine, Zofran ordered for symptoms. Laboratory workup ordered including CT of the brain given her headache. CBC without leukocytosis or anemia. Patient has thrombocytopenia with a platelet count of 148. History of thrombocytopenia in the past. BMP unremarkable. Troponin 18, repeat 14. BNP unremarkable. CT of the brain unremarkable. On reevaluation, patient's blood pressure has improved. Her SBP is in the 150s/140s. She states her chest pain has improved since her blood pressure has improved. Suspect hypertension urgency. Patient is on multiple antihypertensives. Her blood pressure is managed by her primary care physician, Dr. Olvera. I did contact her primary care physician and patient was discussed. Given that patient is intermittently bradycardic, will hold off on increasing carvedilol and instead will add amlodipine. Patient was made aware that it can cause bilateral lower extremity swelling. She was told to monitor her blood pressure closely. Make a follow-up appointment with PCP. Return precautions explained. She confirmed understand the plan. Patient stable to discharge home. EKG: Interpreted by me/EM physician: EKG shows normal sinus rhythm with nonspecific ST changes. Heart rate 64 Diagnostic: Interpreted by me/EM physician: Chest x-ray without pneumonia, effusion, cardiomegaly, pneumothorax. Radiology in agreement. Impression: 1 Hypertension urgency 2. History of uncontrolled hypertension 3. Chronic pain Lab Data Labs: Laboratory Results - last 24 hr 02/22/25 02/22/25 10:40 12:50 WBC 6.2 RBC 3.81 L Hgb 12.7 Hct 36.1 L MCV 94.8 MCH 33.3 H MCHC 35.2 RDW Std Deviation 45.2 H RDW Coeff of Moon 13.1 Plt Count 148 L MPV 10.4 Immature Gran % (Auto) 0.300 Neut % (Auto) 71.7 H Lymph % (Auto) 21.0 Union % (Auto) 5.5 Eos % (Auto) 1.3 Baso % (Auto) 0.2 Absolute Neuts (auto) 4.5 Absolute Lymphs (auto) 1.31 Nucleated RBC % 0 Sodium 136 Potassium 3.3 Chloride 100 Carbon Dioxide 23.9 Anion Gap 12 BUN 18 Creatinine 1.17 Estim Creat Clear Calc 61.90 Est GFR (MDRD) Non-Af 51 L BUN/Creatinine Ratio 15.0 Glucose 118 H Calcium 10.0 Troponin T High Sens 18 H Troponin T Hi Sens 2 Hr 14 NT pro BNP II 480 Radiography Diagnostic Testing: Clinical Impression(s) from Imaging Studies Brain CT 02/22/25 10:12 IMPRESSION: Age consistent changes, no acute findings Reading Location: [facility] Chest X-Ray 02/22/25 11:00 IMPRESSION: No acute pulmonary process, no interval change Reading Location: [id number] Discharge Plan Triage Chief Complaint: Hypertension ED Provider: Adalid Castelan Dx/Rx/DC Orders Clinical Impression: HTN (hypertension) Instructions: ED Hypertension, Established Prescriptions: New amlodipine 10 mg tablet 10 mg PO DAILY 30 Days Qty: 30 0RF No Action aspirin 81 MG tablet 81 mg PO DAILY@0800 Qty: 30 0RF Patient Comments: heart [facility] hydrochlorothiazide 25 MG tablet 25 mg PO DAILY Patient Comments: water pill losartan 100 MG tablet 100 mg PO DAILY cholecalciferol (vitamin D3) [Vitamin D3] 1,000 UNIT tablet 1,000 unit PO DAILY pregabalin 25 MG capsule 25 mg PO BID metoprolol succinate 100 MG tablet extended release 24 hr 100 mg PO DAILY famotidine 20 MG tablet 20 mg PO BID Qty: 60 0RF hydralazine 50 MG tablet 50 mg PO TID Qty: 90 0RF oxycodone-acetaminophen 1 EACH tablet 1 ea PO TID PRN PRN (Reason: Pain 1-10 Or Fever) trazodone 50 MG tablet 50 mg PO QHS acetaminophen 325 MG tablet 650 mg PO Q6H PRN PRN (Reason: Pain Score 1-10/Temp > 100.7 F) 0RF albuterol sulfate 1 INHALER inhaler 2 puff INHALATION Q4H PRN PRN (Reason: Sob &/Or Wheezing) Qty: 1 0RF Primary Care Provider: Deyvi Olvera Referrals: Deyvi Olvera DO [Primary Care Provider] - 3-5 Days Activity Restrictions/Additional Instructions: Follow-up with your primary care physician and pain management. You will need to continue your home medications as well as added on amlodipine. Call your physician's office to make a follow-up appointment. Monitor your blood pressure closely at home. Return back to the ED if symptoms change or worsen. Print Language: Nigerian Disposition Disposition: Home, Self Care
[2025-02-22 10:50] LABS: Hematocrit 36.1 % (37-47); Hemoglobin 12.7 g/dL (12.0-15.0); Immature Granulocytes Count 0.020 X10^3/uL (0.0-0.0); Mean Corp Hgb Conc 35.2 g/dL (32-36); Mean Corpuscular Volume 94.8 fL (81-99); Mean Platelet Vol. 10.4 fl (6.2-12.0); NRBC Flagged by Analyzer 0 % (0-5); Platelet Count 148 K/mm3 (150-450); RBC Distribution Width CV 13.1 % (11.6-14.6); RBC Distribution Width SD 45.2 fl (35.1-43.9); Red Blood Count 3.81 M/mm3 (4.2-5.4); White Blood Count 6.2 K/mm3 (4.4-11.0)
--- NOTE | 2025-02-22 11:00 | RAD_ITS ---
PROCEDURE: CHEST PA AND LATERAL 02/22/2025 REASON FOR EXAM: HTN TECHNIQUE: CHEST PA AND LATERAL COMPARISON: 2021 FINDINGS: Hardware: EKG leads overlie the chest Heart: The heart size is normal. Mediastinum: The mediastinal contour is unremarkable. Lungs: The lungs are clear. Bones: The bones are unremarkable. RAD/Chest PA and Lateral IMPRESSION: No acute pulmonary process, no interval change Reading Location: [id number]
[2025-02-22 11:15] LABS: Anion Gap 12 (5-15); BUN 18 mg/dL (4-19); BUN/Creat Ratio 15.0 RATIO (10-20); Calcium,Total 10.0 mg/dL (7.6-11.0); Carbon Dioxide 23.9 mmol/L (21.0-32.0); Chloride 100 mmol/L (98-108); Estimated Creatinine Clearance 61.90 ml/min (50-250); Glucose 118 mg/dL (70-99); Potassium 3.3 mmol/L (3.3-5.1); Pro- Brain NATRIURETIC PEPTIDE 480 pg/mL (<=900)
[2025-02-22 11:42] LABS: Troponin T High Sensitivity 18 ng/L (<=14)
[2025-02-22 13:31] LABS: Troponin T High Sens 2 HR 14 ng/L (<=14)
== END 2025-02-22 14:22 | disposition home or self-care (01) ==
PROVIDERS: Emergency Provider Surgery; PCP Student in an Organized Health Care Education/Training Program; Visit Provider Surgery
DX: I16.0 Hypertensive urgency (principal); I10 Essential (primary) hypertension; G89.29 Other chronic pain; Z79.82 Long term (current) use of aspirin; Z79.899 Other long term (current) drug therapy
CPT/HCPCS: 70450; 71046; 80048; 83880; 84484; 85025; 93005; 96374; 96375; 99284; A4216; J2405